=== PATIENT | male | born 1965 | race Caucasian/White ===

== ENCOUNTER 2023-01-20 10:59 | Day surgery (SDC) | payer OTHER, SELFPAY ==
--- NOTE | 2023-01-20 12:05 | P.ON_ITS ---
Date of procedure: 01/20/23 Procedure: Lumbar 4/5 Epidural injection Preop diagnosis includes pain secondary to Lumbar Radiculopathy Post op diagnosis same Under fluoroscopic guidance Immediate complications none Solution used for injection: Marcaine 0.25% 2mL, 2cc Normal saline, Depo-Medrol 80mg Omnipaque 3 mL Anesthesia local 2% lidocaine up to 4ml Timeout process compliant After informed consent obtained. patient brought to the procedure room placed in the prone position. skin overlying the area was prepped and draped in a sterile fashion using betadine. 25 gauge needle used To raise a skin wheel with local anesthetic over the target area identified under fluoroscopy . a 17 gauge Touhy needle Was inserted over the anesthetized area and directed towards the inter- space under fluoroscopic guidance . epidural space was identified with loss of resistance technique to air. needle Tip placement confirmed with injection of contrast solution. Steroid solution was then injected. Dellrose removed post operatively. Patient transferred to recovery room in stable condition, to be discharged home after meeting Criteria Surgeon: Jimmy Montes
[2023-01-20 12:10] VITALS: BP 122/72; PULSE 74; RESP 14; TEMP 36.9; O2SAT 98
[2023-01-20 12:20] LABS: Glucometer 138 mg/dL (74-106)
[2023-01-20 12:51] VITALS: RESP 20
[2023-01-20 12:56] VITALS: BP 141/102; PULSE 76; O2SAT 92
[2023-01-20] MEDS: 0.9 % SODIUM CHLORIDE 10 ML SYRINGE - SALINE FLUSH 2 ML INJ (12:58)
[2023-01-20] MEDS: IOHEXOL 240 MG/ML - 10 ML VIAL INJ (12:59)
[2023-01-20] MEDS: BUPIVACAINE HCL 0.25% PF 25 MG/10 ML VIAL 2 ML INJ (12:59)
[2023-01-20] MEDS: METHYLPREDNISOLONE ACETATE 80 MG/ML VIAL INJ (13:00)
[2023-01-20] MEDS: LIDOCAINE HCL 2% PF 100 MG/5 ML VIAL 4 ML INJ (13:00)
[2023-01-20 13:02] VITALS: BP 146/69; PULSE 69; O2SAT 95
== END 2023-01-20 13:03 | disposition home or self-care (01) ==
LOC: SURGOUT 10:59
PROVIDERS: PCP Nurse Practitioner; Visit Provider Anesthesiology Pain Medicine
DX: M54.16 Radiculopathy, lumbar region (principal)
CPT/HCPCS: 36415; 62323; 82948; J1040; Q9966

== ENCOUNTER 2023-02-19 10:27 | Outpatient (OUT) | payer OTHER, SELFPAY ==
--- NOTE | 2023-02-19 10:54 | PM.CN ---
Consult Note: HPI Data of Consult Patient: known to practice within the last 3 years Consult date: 02/19/23 Requesting Physician: TAWNY ANDERSEN NP Primary Care Provider: Lenore Abad Consult Narrative Narrative: Patient was here for f/u of L4/5 TOMASA . He had no relief of pain after procedure. Pain is 10/10 today . Pain is bilat back radiating to both legs with weakness right leg. He has also had an RFA in the past with no relief. We discussed neurospine referral since procedures are not helping and he is in agreement. Denies adverse SE of medications. Medication regimen assists patient with being better able to perform ADLS. No new sensorimotor or bowel or bladder issues. He walks with walker. cc:: CC: TAWNY ANDERSEN NP Review of Systems ROS Status of ROS 10 or more systems reviewed and unremarkable except as noted in history and below Musculoskeletal Reports: back pain PFSH PFSH Medical History Surgical History Meds Home Medications and Allergies Home Medications Medication Instructions Recorded Confirmed Type albuterol sulfate 90 mcg/actuation inhalation 01/12/23 History aerosol inhaler (ProAir HFA) aspirin 81 mg capsule 81 mg PO DAILY 01/12/23 01/20/23 History atorvastatin 40 mg tablet mg 01/12/23 History baclofen 10 mg tablet mg 01/12/23 History budesonide-formoterol HFA 160 inhalation 01/12/23 History mcg-4.5 mcg/actuation aerosol inhaler (Symbicort) bupropion HCl 300 mg 24 hr tablet, mg PO 01/12/23 History extended release citalopram 40 mg tablet (Celexa) 40 mg PO DAILY 01/12/23 01/20/23 History clopidogrel 75 mg tablet mg 01/12/23 History insulin glargine 100 unit/mL (3 unit subcut 01/12/23 History mL) subcutaneous pen (Lantus Solostar U-100 Insulin) lisinopril 20 mg tablet mg 01/12/23 History metformin 750 mg tablet,extended mg PO 01/12/23 History release 24 hr metoprolol tartrate 50 mg tablet mg 01/12/23 History pregabalin 100 mg capsule mg 01/12/23 History trazodone 150 mg tablet mg 01/12/23 History Allergies Allergy/AdvReac Type Severity Reaction Status Date / Time Penicillins Allergy Mild Verified 01/12/23 16:18 Exam Constitutional Documenting provider has reviewed patient's vital signs: yes Common normals: no apparent distress, oriented x3, healthy appearing, alert and well nourished General appearance: cooperative, comfortable and well developed Nutritional appearance: obese Orientation/consciousness: Yes awake, Yes oriented to person, Yes oriented to place and Yes oriented to time HENMT Common normals: normocephalic and moist oral mucous membranes Respiratory Common normals: normal respiratory effort, no retractions and no use of accessory muscles Effort & inspection: able to speak in complete sentences and symmetric chest movement Back & Pelvis Lumbar spine/lower back: normal to inspection, ROM limited, pain with ROM, paraspinal muscle tenderness, paraspinal muscle spasm, straight leg raise positive right and straight leg raise positive left Other: positive facet load bilat lumbar Assessment and Plan Assessment and Plan (1) Lumbar radiculopathy: (2) Muscle spasm: Plan neurospine referral
== END 2023-02-19 10:28 | disposition home or self-care (01) ==
LOC: PM 10:27
PROVIDERS: PCP Nurse Practitioner; Visit Provider Nurse Practitioner
DX: M54.16 Radiculopathy, lumbar region (principal); M62.838 Other muscle spasm
CPT/HCPCS: G0463

== ENCOUNTER 2023-02-20 07:00 | Outpatient (OUT) | payer OTHER, SELFPAY ==
[2023-02-20 07:24] LABS: Basophils Absolute Auto 0.1 10^3/uL (0.0-0.1); Basophils Percent Auto 0.5 % (0.2-2.0); Eosinophils Absolute Auto 0.2 10^3/uL (0.0-0.7); Eosinophils Percent Auto 1.9 % (0.9-7.0); Hematocrit 44.4 % (42.0-54.0); Hemoglobin 14.8 g/dL (14.0-18.0); Immature Granulocytes Abs Auto 0.03 10^3/uL (0.00-0.03); Immature Granulocytes Pct Auto 0.3 % (0.0-0.5); Lymphocytes Absolute Auto 2.6 10^3/uL (1.2-3.8); Lymphocytes Percent Auto 24.2 % (20.5-60.0); Mean Corpuscular HGB Conc 33.3 g/dL (29.9-35.2); Mean Corpuscular Hemoglobin 29.7 pg (25.9-34.0); Mean Corpuscular Volume 89.2 fL (80.0-94.0); Mean Platelet Volume 8.9 fL (9.5-13.5); Monocytes Absolute Auto 0.8 10^3/uL (0.3-0.8); Neutrophils Absolute Auto 7.2 10^3/uL (1.4-6.5); Neutrophils Percent Auto 66.1 % (43.0-75.0); Platelet Count 274 10^3/uL (150-450); Red Blood Count 4.98 10^6/uL (4.70-6.10); White Blood Count 10.8 10^3/uL (4.0-11.0)
[2023-02-20 07:35] LABS: Estimated Average Glucose 140 mg/dL; Glycohemoglobin A1C 6.5 % (4.5-6.2)
[2023-02-20 07:37] LABS: Alanine Aminotransferase 31 U/L (16-63); Albumin Globulin Ratio 0.9; Albumin Level 3.7 g/dL (3.4-5.0); Alkaline Phosphatase 124 U/L (46-116); Anion Gap 12.2; Aspartate Amino Transferase 11 U/L (15-37); BUN Creatinine Ratio 8.7; Bilirubin Total 0.3 mg/dL (0.2-1.0); Bilirubin Urine NEGATIVE (NEGATIVE); Blood Urine NEGATIVE (NEGATIVE); Calcium 9.1 mg/dL (8.5-10.1); Carbon Dioxide 29.3 mmol/L (21.0-32.0); Chloride 99 mmol/L (98-107); Chol HDL Ratio 3.5; Cholesterol 151 mg/dL (<=200); Clarity Urine CLEAR (CLEAR); Color Urine LT. YELLOW (YELLOW); Estimated GFR (African America >60 (>=60); Estimated GFR (Non-African Ame >60 (>=60); Globulin 4.2 g/dL; Glucose 139 mg/dL (74-106); Glucose Urine UA NEGATIVE (NEGATIVE); HDL Cholesterol 43 mg/dL (40-60); Ketones Urine NEGATIVE (NEGATIVE); Leukocyte Esterase Urine TRACE (NEGATIVE); Nitrite Urine NEGATIVE (NEGATIVE); Potassium 4.5 mmol/L (3.5-5.1); Protein Urine NEGATIVE (NEG/TRACE); Sodium 136 mmol/L (136-145); Total Protein 7.9 g/dL (6.4-8.2); Triglycerides 85 mg/dL (<=150); Urobilinogen Urine 0.2 EU/dL (0.2-1.0)
[2023-02-20 07:53] LABS: Microalbumin Urine Random <1.3 mg/dL (<=30.0)
[2023-02-20 08:06] LABS: Bacteria Urine TRACE #/HPF (NONE SEEN); Mucus Urine NONE SEEN (NONE SEEN); RBC Urine NONE SEEN #/HPF (0-2)
[2023-02-20 08:07] LABS: Squamous Epithelial Cell Urine FEW #/LPF (NONE/RARE)
[2023-02-20 08:30] LABS: Prostate Specific Antigen Scrn 0.78 ng/mL (<=4.00)
== END 2023-02-20 07:01 | disposition home or self-care (01) ==
LOC: LAB 02-25 13:00
PROVIDERS: PCP Nurse Practitioner; Visit Provider Nurse Practitioner
DX: E11.9 Type 2 diabetes mellitus without complications (principal); Z12.5 Encounter for screening for malignant neoplasm of prostate
CPT/HCPCS: 36415; 80053; 80061; 81001; 82043; 83036; 85025; G0103

== ENCOUNTER 2023-09-29 11:36 | Outpatient (OUT) | payer OTHER, SELFPAY ==
[2023-09-29 14:25] LABS: Estimated Average Glucose 148 mg/dL; Glycohemoglobin A1C 6.8 % (4.5-6.2)
== END 2023-09-29 11:37 | disposition home or self-care (01) ==
LOC: LAB 11:36
PROVIDERS: PCP Nurse Practitioner; Visit Provider Nurse Practitioner
DX: E11.42 Type 2 diabetes mellitus with diabetic polyneuropathy (principal); Z79.4 Long term (current) use of insulin
CPT/HCPCS: 36415; 83036

== ENCOUNTER 2024-02-26 21:55 | Emergency (ER) | payer OTHER, SELFPAY ==
--- OUTSIDE RECORDS SUMMARY | 2024-02-26 22:01 | XMS_ITS | CCD ---
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 Name Role Phone Lakshmipathy, Narendrana Attending Provider Unav ailable NON STAFF Primary Care Provider Unavailabl e Lakshmipathy, Narendrana Admitting Unavail able Lakshmipathy, Narendrana Attending Unavail able NON STAFF Primary Care Unavailable AICHHOLZ, CHILD PSYCHOMETRIST LENORE Admitting Unavailable AICHHOLZ, CHILD PSYCHOMETRIST LENORE Attending Unavailable AICHHOLZ, CHILD PSYCHOMETRIST LENORE Primary Care Unavailable ZACK ., DR GERHARD Solorio Admitting Unavailable DIXON ., DR GERHARD Solorio Attending Unavailable AICHHOLZ, CHILD PSYCHOMETRIST LENORE Primary Care Unavailable DIXON ., DR GERHARD Solorio Consulting Unavailable LAKSHMIPATHY ., NARENDRANATH Admitting Pati vailable LAKSHMIPATHY ., NARENDLEXATH Attending Pati vailable AICHHOLZ, CHILD PSYCHOMETRIST LENORE Primary Care Unavailable LAKSHMIPATHY ., NARENDRANATH Consulting Pati vailable LAKSHMIPATHY ., NARENDRANATH Admitting Pati vailable LAKSHMIPATHY ., NARENDRANATH Attending Pati vailable AICHHOLZ, CHILD PSYCHOMETRIST LENORE Primary Care Unavailable HALKER .TAWNY Consulting Unavailable AICHHOLZ, CHILD PSYCHOMETRIST LENORE Admitting Unavailable AICHHOLZ, CHILD PSYCHOMETRIST LENORE Attending Unavailable AICHHOLZ, CHILD PSYCHOMETRIST LENORE Primary Care Unavailable AICHHOLZ, CHILD PSYCHOMETRIST LENORE Consulting Unavailable DANY RODRÍGUEZ Consulting Unavailable AICHHOLZ, CHILD PSYCHOMETRIST LENORE Admitting Unavailable AICHHOLZ, CHILD PSYCHOMETRIST LENORE Attending Unavailable AICHHOLZ, CHILD PSYCHOMETRIST LENORE Primary Care Unavailable AICHHOLZ, CHILD PSYCHOMETRIST LENORE Consulting Unavailable AICHHOLZ, CHILD PSYCHOMETRIST LENORE Admitting Unavailable AICHHOLZ, CHILD PSYCHOMETRIST LENORE Attending Unavailable AICHHOLZ, CHILD PSYCHOMETRIST LENORE Primary Care Unavailable GRISELDA ABAD Consulting Unavailable LUÍS CORTES Consulting Unavailable Lenore Lopez Primary Care Provider LENORE ABAD Attending Unavailable LENORE ABAD Attending Unavailable Allergies Allergy Classification Reported Allergen(s) Allergy Type Date of Onset Reaction(s) Facility (3 sources) Penicillins; Translations: [Penicillins] Allergy to substance 09-24-2016 [facility] (1 source) Penicillin Drug Allergy 05-20-2022 [facility] Repository Medications Current Medications Medication Drug Class(es) Dates Sig (Normalized) Sig (Original) aspirin 81 mg delayed release oral tablet (1 source) Platelet Aggregation Inhibitor, Nonsteroidal Anti-inflammatory Drug Start: 11-17-2017 take 1 tablet by mouth once daily aspirin 81 mg Indications: Atherosclerosis of [place] coronary artery of [place] heart without angina pectoris Take 1 tablet (81 mg total) by mouth once daily. 90 tablet 3 11/17/2017 Active atorvastatin 40 mg oral tablet (1 source) HMG-CoA Reductase Inhibitor Start: 11-17-2017 take 1 tablet by mouth once daily atorvastatin (LIPITOR) 40 mg tablet Indications: Atherosclerosis of [place] coronary artery of [place] heart without angina pectoris Take 1 tablet (40 mg total) by mouth once daily. 90 tablet 3 11/17/2017 Active baclofen 10 mg oral tablet (1 source) gamma-Aminobutyric Acid-ergic Agonist take 1 tablet by mouth every eight hours baclofen (LIORESAL) 10 mg tablet Baclofen 10 MG Oral Tablet TAKE 1 TABLET Every 8 hours Quantity: 90 Refills: 0 [place] M.D.; Active 0 Active 24 hr buPROPion hydrochloride 300 mg extended release oral tablet (1 source) Aminoketone take 1 tablet by mouth once daily buPROPion XL (WELLBUTRIN XL) 300 mg 24 hr tablet Take 300 mg by mouth daily. 0 Active clopidogrel 75 mg oral tablet (1 source) P2Y12 Platelet Inhibitor Start: 11-17-2017 take 1 tablet by mouth once daily clopidogrel (PLAVIX) 75 mg tablet Indications: Atherosclerosis of [place] coronary artery of [place] heart without angina pectoris take 1 tablet by mouth once daily 30 tablet 5 11/17/2017 Active gabapentin 600 mg oral tablet (1 source) Anti-epileptic Agent Start: 06-03-2018 take 1 tablet by mouth every six hours gabapentin (NEURONTIN) 600 mg tablet Indications: Chronic low back pain, unspecified back pain laterality, with sciatica presence unspecified take 1 tablet by mouth every 6 hours 100 tablet 2 06/03/2018 Active lisinopril 20 mg oral tablet (1 source) Angiotensin Converting Enzyme Inhibitor Start: 11-17-2017 take 1 tablet by mouth once daily lisinopril (PRINIVIL,ZESTRIL) 20 mg tablet Indications: Atherosclerosis of [place] coronary artery of [place] heart without angina pectoris Take 1 tablet (20 mg total) by mouth once daily. 90 tablet 3 11/17/2017 Active metFORMIN hydrochloride 500 mg oral tablet (1 source) Biguanide Start: 05-07-2019 take 1 tablet by mouth twice daily metFORMIN (GLUCOPHAGE) 500 mg tablet Take 500 mg by mouth 2 (two) times a day. 0 05/07/2019 Active metoprolol tartrate 50 mg oral tablet (1 source) beta-Adrenergic Ike Start: 11-17-2017 take 1 tablet by mouth once metoprolol tartrate (LOPRESSOR) 50 mg tablet Indications: Atherosclerosis of [place] coronary artery of [place] heart without angina pectoris Take 1 tablet (50 mg total) by mouth every 12 (twelve) hours. 180 tablet 3 11/17/2017 Active morphine sulfate 15 mg extended release oral tablet (1 source) Opioid Agonist Start: 06-28-2018 take 1 tablet by mouth once morphine (MS CONTIN) 15 mg 12 hr tablet Indications: Chronic low back pain, unspecified back pain laterality, with sciatica presence unspecified Take 1 tablet (15 mg total) by mouth every 12 (twelve) hours. Max Daily Amount: 30 mg 60 tablet 0 06/28/2018 Active OXcarbazepine 150 mg oral tablet (1 source) Anti-epileptic Agent take 1 tablet by mouth four times daily OXcarbazepine (TRILEPTAL) 150 mg tablet OXcarbazepine 150 MG Oral Tablet TAKE 1 TABLET 4 TIMES DAILY Refills: 0 Active 0 Active oxyCODONE hydrochloride 10 mg oral tablet (1 source) Opioid Agonist Start: 06-28-2018 take 1 tablet by mouth every eight hours oxyCODONE (ROXICODONE) 10 MG tablet immediate release tablet Indications: Chronic low back pain, unspecified back pain laterality, with sciatica presence unspecified Take 1 tablet (10 mg total) by mouth every 8 (eight) hours. Max Daily Amount: 30 mg 90 tablet 0 06/28/2018 Active predniSONE 20 mg oral tablet (1 source) Start: 01-26-2018 predniSONE (DELTASONE) 20 mg tablet Take two tablets by mouth for first 5 days, take one tablet by mouth for following 5 days. 15 tablet 0 01/26/2018 Active rOPINIRole 0.25 mg oral tablet (1 source) Nonergot Dopamine Agonist take 1 tablet by mouth three times daily rOPINIRole (REQUIP) 0.25 mg tablet ROPINIRole HCl - 0.25 MG Oral Tablet TAKE 1 TABLET 3 TIMES DAILY. Refills: 0 Active 0 Active sildenafil 50 mg oral tablet (1 source) Phosphodiesterase 5 Inhibitor Start: 12-12-2019 take 1 tablet by mouth once daily as needed sildenafiL (VIAGRA) 50 mg tablet Take 1 tablet (50 mg total) by mouth daily as needed for erectile dysfunction. 10 tablet 3 12/12/2019 Active varenicline (1 source) Partial Cholinergic Nicotinic Agonist Start: 06-09-2019 varenicline (CHANTIX SUNIL) 0.5 mg (11)- 1 mg (42) tablet Take 0.5 mg one daily on days 1-3 and 0.5 mg twice daily on days 4-7. Then 1 mg twice daily for a total of 12 weeks. 53 tablet 3 06/09/2019 Active Problems Active Problems Problem Classification Problem Date Documented Da te Episodic/Chronic Acute myocardial infarction (1 source) Myocardial infarction; Translations: [Acute myocardial infarction, unspecified] 06-07-2019 Chronic Congestive heart failure; nonhypertensive (1 source) Congestive heart failure; Translations: [Heart failure, unspecified] 06-07-2019 Chronic Coronary atherosclerosis and other heart disease (1 source) Coronary arteriosclerosis; Translations: [Atherosclerotic heart disease of [place] coronary artery without angina pectoris] 06-07-2019 Chronic Diabetes mellitus without complication (5 sources) Type 2 diabetes mellitus without complications; Translations: [Diabetes mellitus] Onset: 01-31-2022 Chronic Disorders of lipid metabolism (1 source) Hyperlipidemia; Translations: [Hyperlipidemia, unspecified] 06-07-2019 Chronic Essential hypertension (1 source) Hypertensive disorder; Translations: [Essential (primary) hypertension] 06-07-2019 Chronic Mood disorders (1 source) Depressive disorder; Translations: [Depression] 06-07-2019 Chronic Osteoarthritis (1 source) Arthritis; Translations: [Unspecified osteoarthritis, unspecified site] 06-07-2019 Chronic Other male genital disorders (1 source) Male erectile dysfunction, unspecified; Translations: [Impotence of organic origin] 06-07-2019 Chronic Other nervous system disorders (1 source) Other chronic pain; Translations: [OTHER CHRONIC PAIN] Onset: 10-05-2022 Chronic Other nutritional; endocrine; and metabolic disorders (1 source) Obesity, unspecified; Translations: [OBESITY UNSPECIFIED] Onset: 05-23-2022 Chronic Other nutritional; endocrine; and metabolic disorders (1 source) Obesity; Translations: [Obesity, unspecified] 06-07-2019 Chronic Parkinson`s disease (1 source) Parkinson's disease; Translations: [Parkinson's disease] 06-07-2019 Chronic Spondylosis; intervertebral disc disorders; other back problems (12 sources) Spondylosis without myelopathy or radiculopathy, lumbar region; Translations: [Other intervertebral disc degeneration, lumbar region] Onset: 08-14-2016 Chronic Spondylosis; intervertebral disc disorders; other back problems (9 sources) Radiculopathy, lumbar region; Translations: [Intervertebral disc disorders with radiculopathy, lumbar region] Onset: 08-14-2016 Episodic Unclassified (2 sources) LOW BACK PAIN, UNSPECIFIED; Translations: [LOW BACK PAIN, UNSPECIFIED] Onset: 10-05-2022 Past or Other Problems Problem Classification Problem Date Documented Da te Episodic/Chronic Other connective tissue disease (1 source) Pain in right leg; Translations: [PAIN IN RIGHT LEG] Onset: 05-23-2022 Episodic Other liver diseases (4 sources) Abnormal levels of other serum enzymes; Translations: [ABNORMAL LEVELS OTHER SERUM ENZYMES] Onset: 02-26-2022 Episodic Unclassified (1 source) LOW BACK PAIN, UNSPECIFIED; Translations: [LOW BACK PAIN, UNSPECIFIED] Onset: 09-30-2022 Results Test Name Value Interpretation Reference Range Facility XR pre/post mri xrayon 11-05 XR pre/post mri xray [facility] [place] [address] MRI Report Signed Patient: Jose Delacruz MR#: [id number] 44 : 1965 Acct:[id number] Age/Sex: 57 / M ADM Date: 11/05/22 Loc: MR Room: Type: [facility] Attending Dr: Maria Teresa Montes Copies to: Jimmy Montes Ordering Provider: Jimmy Montes Date of Service: 11/05/22 MR/MR lumbar spine wo con: LUMBAR RADICULOPATHY ([id number]) XR/XR pre/post mri xray: LUMBAR RADIC MRI lumbar spine withoutcontrast TECHNIQUE: Multiplanar T1 and T2-weighted imaging of lumbar spine obtained without contrast. HISTORY:Low back pain with radiation down the legs. COMPARISON:None The last fully segmented vertebral pair is operationally defined as L5/S1. POST SURGERY CHANGES: None BONE MARROW INFILTRATION:None BONE MARROW EDEMA:None BONY ALIGNMENT: Adequate bony alignment identified. SPINAL CANAL:No significant central canal narrowing. LUMBAR FRACTURE: None BONY LESIONS: None KIDNEYS: No hydronephrosis is identified. AORTA: No aortic aneurysm is seen. CONUS MEDULLARIS : The distal spinal cord is in adequate position without abnormality. Additional findings CONJOINED NERVE ROOT:None Lower thoracic level: Unremarkable L1-2:Mild spondylosis. Moderate diffuse disc bulge. Facet ligamentum flavum hypertrophy. Patent central canal and neural foramen. L2-3: Mild spondylosis. Midline disc protrusion. Concavity intrathecal sac. Facet ligamentum flavum hypertrophy. Mild central canal stenosis. Mild bilateral neural foraminal narrowing. L3-4:Mild spondylosis. Moderate diffuse disc bulge. Facet ligamentum flavum hypertrophy. Patent central canal. Mild bilateral neural foraminal narrowing. L4-5:The RIGHT parasagittal disc extrusion. Concavity intrathecal sac. Facet ligamentum flavum hypertrophy. Moderate RIGHT and mild LEFT neural foraminal narrowing. L5-S1:Mild spondylosis. Diffuse disc bulge and LEFT parasagittal disc protrusion. Patent central canal. Mild bilateral neural foraminal narrowing. Facet ligamentum flavum hypertrophy. MR/MR lumbar spine wo con IMPRESSION:Multileve l discovertebral degenerative changes. L4-5 RIGHT paracentral disc extrusion. L5-S1 LEFT paracentral disc protrusion. Mild central canal stenosis. Neuroforaminal narrowing as above. Pre-MRI plain film assessment: Plain film imaging the skeletal lumbar spine was performed. There is a BB identified in the vertex of the scalp. The bony structures intact. There is some degenerative changes of the lumbar spine throughout. No acute bony findings. Alignment unremarkable. IMPRESSION: BB in the vertex of the scalp. Multiple level lumbar degeneration. Impression dictated by: Gareth Armenta M.D.11/05/2022 3:43 PM Dictation Location: [place] [address] Transcribed By: [facility] 11/05/22 1543 Dictated By: Gareth Armenta DO 11/05/22 1537 Signed By: 11/05/22 1543 Normal [facility] US SINGLE QUAD RT UPPERon US SINGLE QUAD RT UPPER ULTRASOUND RIGHT UPPER QUADRANT HISTORY: Elevated liver enzymes. COMPARISON: None. FINDINGS: The liver is diffusely echogenic which limits the sensitivity for intrahepatic masses. There is no intrahepatic biliary ductal dilatation. The gallbladder appears unremarkable with no evidence for gallbladder wall thickening or pericholecystic fluid. The common bile duct measures 2 mm. Negative Corado's sign. The visualized portions of the pancreas appear unremarkable. The right kidney is normal appearing with no evidence of hydronephrosis or masses. IMPRESSION: Echogenic liver consistent with hepatocellular disease such as fatty infiltration. Electronically authenticated by: LUÍS CORTES Date: 2022-02-26 17:17 Normal [facility] XR LSPINE 2_3 VIEWSon 2021 XR LSPINE 2_3 VIEWS EXAMINATION: XR LSPINE 2_3 VIEWS HISTORY: Degeneration of lumbar intervertebral disc ; chronic low back pain, right leg pain COMPARISON: XR lumbar spine 10/03/2015 FINDINGS: BONES: Moderate degenerative facet arthropathy L3-L4 through L5-S1. No fracture, spondylolisthesis, bone lesion. Multilevel mild degenerative endplate changes. DISC SPACES: Multilevel mild disc height reduction. PARASPINOUS: Negative. No paraspinous abnormality is seen. OTHER: Negative. IMPRESSION: 1. No appreciable acute abnormality. 2. Multilevel mild-moderate degenerative disc disease and facet arthropathy. Electronically authenticated by: DANY RODRÍGUEZ Date: 2022-02-05 09:40 Normal [facility] GLYCOHEMOGLOBIN A1Con 2021 ADA RECOMMENDATION SEE BELOW Normal [facility] Comment on above: Result Comment: ADA RECOMMENDED LIMIT 4.0 - 6.0 ADA THERAPEUTIC TARGET < 7.0 ACTION SUGGESTED > 7.0 Performed By: #### A 1C #### [facility] [address] [place] [address] Dr. Josue Fierro Glucose [Mass/Vol] 148 mg/dL Normal [facility] Comment on above: Performed By: #### A 1C #### [facility] [address] [place] [address] Dr. Josue Fierro HbA1c (Bld) [Mass fraction] 6.8 % Critically high 4.5-6.2 [facility] Comment on above: Performed By: #### A 1C #### [facility] [address] [place] [address] Dr. Josue Fierro PROF 14(COMP METB)on 022 Albumin [Mass/Vol] 3.4 g/dL Normal 3.4-5.0 [facility] Comment on above: Performed By: #### C MP #### [facility] [address] [place] [address] Dr. Josue Fierro Albumin/Globulin [Mass ratio] 0.9 {ratio} Normal [facility] Comment on above: Performed By: #### C MP #### [facility] [address] [place] [address] Dr. Josue Fierro ALP [Catalytic activity/Vol] 133 U/L Critically high 46-116 [facility] Comment on above: Performed By: #### C MP #### [facility] [address] [place] [address] Dr. Josue Fierro ALT [Catalytic activity/Vol] 28 U/L Normal 16-63 [facility] Comment on above: Performed By: #### C MP #### [facility] [address] [place] [address] Dr. Josue Fierro Anion gap [Moles/Vol] 12.3 mmol/L Normal [facility] Comment on above: Performed By: #### C MP #### [facility] [address] [place] [address] Dr. Josue Fierro AST [Catalytic activity/Vol] 15 U/L Normal 15-37 [facility] Comment on above: Performed By: #### C MP #### [facility] [address] [place] [address] [address] oJsue Fierro Bilirubin [Mass/Vol] 0.2 mg/dL Normal 0.2-1.0 [facility] Comment on above: Performed By: #### C MP #### [facility] [address] [address] [address] Josue Fierro Calcium [Mass/Vol] 9.1 mg/dL Normal 8.5-10.1 [facility] Comment on above: Performed By: #### C MP #### [facility] [address] [place] [address] Dr. Josue Fierro Chloride [Moles/Vol] 100 mmol/L Normal 98-107 [facility] Comment on above: Performed By: #### C MP #### [facility] [address] [place] [address] Dr. Josue Fierro CO2 [Moles/Vol] 28.2 mmol/L Normal 21.0-32.0 [facility] Comment on above: Performed By: #### C MP #### [facility] [address] [place] [address] Dr. Josue Fierro Creatinine [Mass/Vol] 1.10 mg/dL Normal 0.70-1.30 [facility] Comment on above: Performed By: #### C MP #### [facility] [address] [place] [address] Dr. Josue Fierro EGFR-AF EMIRATI >60 Normal >=60 [facility] Comment on above: Performed By: #### C MP #### [facility] [address] [place] [address] Dr. Josue Fierro EGFR-NON AF EMIRATI >60 Normal >=60 [facility] Comment on above: Performed By: #### C MP #### [facility] [address] [place] [address] Dr. Josue Fierro Globulin (S) [Mass/Vol] 3.8 g/dL Normal [facility] Comment on above: Performed By: #### C MP #### [facility] [address] [place] [address] Dr. Josue Fierro Glucose [Mass/Vol] 153 mg/dL Critically high 74-106 [facility] Comment on above: Performed By: #### C MP #### [facility] [address] [address] [address] Josue Fierro Potassium [Moles/Vol] 5.5 mmol/L Critically high 3.5-5.1 [facility] Comment on above: Performed By: #### C MP #### [facility] [address] [address] [address] Josue Fierro Protein [Mass/Vol] 7.2 g/dL Normal 6.4-8.2 [facility] Comment on above: Performed By: #### C MP #### [facility] [address] [place] [address] [address] Josue Fierro Sodium [Moles/Vol] 135 mmol/L Critically low 136-145 [place] Comment on above: Performed By: #### C MP #### [facility] [address] [address] [address] Josue Fierro Urea nitrogen [Mass/Vol] 11.0 mg/dL Normal 7.0-18.0 [facility] Comment on above: Performed By: #### C MP #### [facility] [address] [address] [address] Josue Fierro Urea nitrogen/Creatinine [Mass ratio] 10.0 mg/mg Normal [facility] Comment on above: Performed By: #### C MP #### [facility] [address] [address] [address] Josue Fierro Vital Signs Date Time Vital Sign Value Performing Clinician Baldo jacinto 11-05-2022 11:12-0400 Diastolic blood pressure 75 mm[Hg] [facility] 11-05-2022 11:12-0400 Heart rate 72 /min [facility] 11-05-2022 11:12-0400 Respiratory rate 16 /min [facility] 11-05-2022 11:12-0400 SaO2% (BldA) [Mass fraction] 97 % [facility] 11-05-2022 11:12040 Systolic blood pressure 142 mm[Hg] [facility] 11-05-2022 11:08-0400 Body height 180.34 cm [facility] 11-05-2022 11:08040 Body weight 138.34 kg [facility] Encounters Encounter Date Encounter Type Care Provider Facility Start: 12-10-2023 End: 12-10-2023 ambulatory LENORE AICHHOLZ Not Available Start: 11-04-2023 Telephone encounter [facility] Work Phone: [facility] Start: 07-23-2023 End: 07-23-2023 ambulatory LENORE AICHHOLZ Not Available Start: 12-11-2022 End: 12-12-2022 ambulatory NARENDRANATH FERNANDAMIPATHY . Facility:[facility] Start: 11-05-2022 End: 11-05-2022 ambulatory Scottya Fernandamipathy Facility:[facility] Start: 11-05-2022 End: 11-05-2022 ambulatory NON STAFF [facility] Work Phone: Start: 11-05-2022 End: 11-05-2022 Patient encounter procedure Maria Teresa Montes [facility] [address] [place] Work Phone: Start: 09-30-2022 End: 10-01-2022 ambulatory NARENDRANATH FERNANDAMIPATHY . Facility:[facility] Start: 05-20-2022 End: 05-21-[address] GERHARD DIXON . Facility:[facility] Start: 02-26-2022 End: 02-28-2022 ambulatory CHILD PSYCHOMETRIST LENORE STEPHANIEHVANZ Facility:[facility] Start: 02-26-2022 End: 02-27-2022 ambulatory CHILD PSYCHOMETRIST LENORE AICHHOLZ Facility:[facility] Start: 02-04-2022 End: 02-05-2022 ambulatory CHILD PSYCHOMETRIST LENORE AICHHOLZ Facility:[facility] Start: 01-31-2022 End: 02-01-2022 ambulatory CHILD PSYCHOMETRIST LENORE ABAD Facility:[facility] Procedures Date Procedure Procedure Detail Performing Clinician Start: 11-05-2022 XR pre/post mri xray Na franvickie Fernandamivic Start: 11-05-2022 MR lumbar spine wo con Scottyjone Fernandamipathy Plan of Treatment Date Care Activity Detail Author Start: 04-03-2024 Influenza vaccination Influenza Vaccine [facility] Start: 2015 Administration of varicella zoster vaccine Zoster (Shingles) Vaccine (1 of 2) [facility] Start: 1984 DTaP,Tdap and Td Vaccines (1 - Tdap) DTaP,Tdap and Td Vaccines (1 - Tdap) [facility] Start: 1983 Adult BMI Screening Adult BMI Screening [facility] Start: 1977 Depression Screening Depression Screening [facility] Start: 1977 Tobacco Screening Tobacco Screening [facility] Payers Date Payer Category Payer Self-pay 2022 Medicaid [employer] H[employer] 2022-Present [phone] [address] [place] [address] [id number] 1965 Unknown [id number] 1965 Unknown [id number] 1965 Unknown [id number] 1965 Unknown [id number] 1965 Unknown [id number] 1965 Unknown [id number] 1965 Unknown [id number] 1965 Unknown [id number] 1965 Unknown [id number] 1959 Medicaid [id number] 1959 Unknown [id number] 1959 Unknown [id number] Unknown [id number] Social History Date Type Detail Facility Tobacco smoking stat [facility] Unknown if ever smoked [facility] Work Phone: Start: 1965 Sex Assigned At Male F [facility] Start: 06-09-2019 [facility] History of tobacco use Cigarette Smoker P [facility] Start: 06-09-2019 End: 08-16-2020 Cigarettes smoked current (pack per day) - Reported 1 [facility] Start: 06-09-2019 Tobacco use and exposure Smokeless tobacco non-user [facility] Start: 06-09-2019 Alcohol intake Ex-drinker (finding) [facility] Start: 05-18-2019 End: 08-16-2020 Tobacco use panel [facility] Childcare Unknown [facility] Start: 1965 Sex Assigned At Not on file P [facility] Note 11-04-2023 Telephone Encounter - Estela Jacobsen - 11/04/2023 3:52 PM EDT Note Date & Type Note Facility 11-04-2023 Miscellaneous Notes Formattin g of this note might be different from the original. Received faxed referral for patient to be seen for Lumbar. Unable to reach patient or leave message, # not in service. documented in this encounter [facility] Telephone encounter Note 11-04-2023 Telephone Encounter - Estela Jacobsen - 11/04/2023 3:52 PM EDT Note Date & Type Note Facility 11-04-2023 Telephone encount er Note Received faxed referral for patient to be seen for Lumbar. Unable to reach patient or leave message, # not in service. [facility] Consultation note 09-30-2022 Note Date & Type Note Facility 09-30-2022 Note CONSULTATION CONSULTATION DATE: 09/30/2022 TO: Lenore Abad CNP CHIEF COMPLAINT: Includes severe lower back pain, right leg pain with mild weakness and numbness. HISTORY OF PRESENT ILLNESS: His last encounter prior to today was on 05/20/2022. At that time, an MRI was requested. Unfortunately, it was not completed. It was approved; however, the patient is severely claustrophobic and requires anesthesia for the imaging study. Nevertheless, the patient reports the pain as being 5-7/10 pain in the mid/lower back and right lower extremity, increased with activities such as standing, walking and performing transitioning maneuvers. He feels most comfortable in the semi-recumbent position. Denies any change in bowel or bladder habits or new sensorimotor change in the lower extremity. He reports the change he experiences is quite old, having been there for at least the last one year, and has not been responsive to physical therapy, independent home exercise program and the use of muscle relaxants as well as membrane stabilizers in the form of Lyrica. He is unable to tolerate nonsteroidal agents secondary to anticoagulation use. EXAM: Notable for patient having hypoesthesia along the right L5 and S1 dermatome, weakness of his right EHL and anterior tibialis. Straight leg raise was equivocally positive at 45 degrees. He had no clinical myelopathy involving his lower extremities. He had a depressed right Achilles reflex. IMPRESSION: Our impression is that patient has chronic pain secondary to right L5 and S1 radiculopathy, unresponsive to conservative therapy which includes physical therapy, medication management, activity modification. RECOMMENDATIONS I recommend proceeding with a lumbosacral MRI without contrast. He will require anesthesia secondary to significant claustrophobia. I will see him back in the office after he undergoes his imaging study. Discussed the possibility of proceeding with a lumbar epidural steroid injection, pending his MRI results. I have also discussed the possibility of surgical decompression with or without stabilization. He reports he wishes to avoid surgery, if at all possible. [facility] Consultation note 05-20-2022 Note Date & Type Note Facility 05-20-2022 Note CONSULTATION CONSULTATION DATE: Low back pain, right leg pain. HISTORY OF PRESENT ILLNESS: This is a 57-year-old gentleman who has had chronic pain since 2005. The patient uses a walker for ambulation. The patient is accompanied by his . The patient was referred to us by Lenore Abad. The patient reports having low back pain bilaterally and on the right side radiating into his foot. He describes the pain as a 7/10, a burning sensation. Activities such as twisting, pushing, standing, walking, lifting, bending, climbing stairs aggravate the patient's pain as does cold, damp weather. Sitting mitigates the patient's pain. The patient takes Tylenol Extra Strength two tablets on a p.r.n. basis, trazodone 150 mg h.s., Lyrica 100 mg t.i.d., Celexa 40 mg, Wellbutrin 300 mg, Skelaxin 800 mg t.i.d. The patient is on Plavix as prescribed by Lenore Abad. The patient's PAST MEDICAL HISTORY / SURGICAL HISTORY / REVIEW OF SYSTEMS are noted on the chart, along with the MEDICATION LIST / ALLERGIES and the X-RAY of his lumbar spine which shows degenerative changes at the discs at the level of T12-L1 and also L5-S1 with lumbar spondylosis. Sclerosis of the facets is also noted. PHYSICAL EXAM: Upon physical examination, this is a disheveled, 57-year-old gentleman, who looks older than stated age. VITAL SIGNS: 113/55 with a heart rate of 57. At a height of 5'11 , the patient weighs 140 kg. HEAD: The patient has poor dentition. NECK: Cervical range of motion is not guarded. HEART: Negative orthopnea from cardiac standpoint. LUNGS: The patient's coloration is appropriate. The patient is a smoker. ABDOMEN: Protuberant, distended. BACK: Loss of lumbar lordosis is noted. Pelvis is rotated anteriorly. Extension, compression, direct palpation on the right hand side aggravates a component of the patient's pain symptomatology. The patient is slow to stand up. The patient is very guarded and focused with regards to his movements. EXTREMITIES: Slight pedal edema is present bilaterally. MUSCULOSKELETAL: Intact in the lower extremities; however, volitionality versus pathology becomes difficult to ascertain on the patient with give way symptomatology. NEUROLOGICALLY: Noncontributory from a dermatomal standpoint. The patient has hypoesthesia along the L5 distribution on the right hand side. PSYCHIATRICALLY: Affect is appropriate. IMPRESSION: Right leg pain, lumbar radiculitis, neuritis, tenderness along the posterior elements on the right hand side, lumbar degenerative disc disease, obesity, significant deconditioning. PLAN: We will order an MRI of the lumbar spine. This will help ascertain the degree of pathology and also target in where we may need to approach. In the interim, the patient is to apply heat rub to his low back and perform stretching exercises. No medications were prescribed. CC: Lenore Abad CNP [facility] Consultation note 05-20-2022 Note Date & Type Note Facility 05-20-2022 Note CONSULTATION CONSULTATION DATE: 05/20/2022 ADDENDUM NOTE: Patient has done a total of 6-8 weeks of home exercises in a sitting position with leg extensions and pushing/pulling exercises. He does use a walker. He has been on long-term treatment with Lyrica 100 mg t.i.d. with current maintenance of his radicular pain. MUSCULOSKELETAL: His motor is 4/5 bilaterally with slight motor weakness noted to the right anterior tibialis. Extensors are intact. NEUROLOGICALLY: Patient is cognitively intact. He has +1 bilateral patellar and Achilles reflexes. [facility] Evaluation note Note Date & Type Note Facility Evaluation note No assessment information availa [facility] Work Phone: Instructions Note Date & Type Note Facility Instructions Not on filedocumented in this en counter [facility] Chief Complaint and Reason for Visit Chief Complaint lumbar radiculpathy Advance Directives No Advanced Directives Records Found Advance Directive Response Recorded Date/ Time Advance Directives No October 24, 2 023 12:15pm Summary Purpose Family History No Family History Records FoundNo Family History Records FoundNo Family History Records Found Additional Source Comments Care Teams (unrecognized sec tion and content) Team Status: Active Member Role Status Dates NON STAFF Primary Care Provider Active Team Status: Inactive Member Role Status Dates Maria Teresa Montes Attending Provider Active NON STAFF Primary Care Provider Active [employer]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 Relationship Specialty Start Date End Date Lenore Abad, DRY MOLDER-CHILD PSYCHOMETRIST [address] [place] [address] PCP - General Nurse Practitioner 06/09/19 Goals (unrecognized section and content) Goals may be documented in a n alternate sectionNot on filedocumented as of this encounter (unrecognized sect ion and content) No Status Records FoundNo Status Records FoundNo Status Records Found INFORMATION SOURCE (unrecogn ized section and content) DATE CREATED AUTHOR 11/18/2022 [facility] DATE CREATED AUTHOR AUTHOR'S ORGANIZ ATION 12/15/[address] [facility] DATE CREATED AUTHOR AUTHOR'S ORGANIZ ATION 12/12/2023 [facility] FOR RECORDS PERTAINING TO PATIENTS WHO ARE OR HAVE BEEN ENROLLED IN A CHEMICAL DEPENDENCY/SUBSTANCEABUSE PROGRAM, SOME INFORMATION MAY BE OMITTED. This clinical summary was aggregated from multiple sources. Caution should be exercised in using it in the provision of clinical care. This summary normalizes information from multiple sources, and as a consequence, information in this document may materially change the coding, format and clinical context of patient data. In addition, data may be omitted in some cases. CLINICAL DECISIONS SHOULD BE BASED ON THE PRIMARY CLINICAL RECORDS. [facility] [employer] provides no warranty or guarantee of the accuracy or completeness of information in this document.
[2024-02-26 22:07] VITALS: BP 136/69; PULSE 71; TEMP 36.7; O2SAT 96; BMI 45.0
[2024-02-26 22:16] LABS: Glucometer 252 mg/dL (74-106)
--- NOTE | 2024-02-26 22:48 | ED_ITS ---
HPI - Recheck/Abnormal Lab/Rx General Chief Complaint: Recheck/Abnormal Lab/Rx Stated Complaint: Hyperglycemia Time Seen by Provider: 02/26/24 22:39 Source: patient Mode of arrival: walk-in Limitations: no limitations History of Present Illness HPI narrative: IDDM. family concerned because his BS is usually 180 or lower and has been over 225. Checked here in the department and is 250s. Patient complains of left flank pain but otherwise feels well. Had a headache earlier that has resolved. No vomiting , diarrhea or urinary symptoms. No fever. Flank pain is mild Related Data Home Medications ?Medication ?Instructions ?Recorded ?Confirmed albuterol sulfate 90 mcg/actuation inhalation 01/12/23 aerosol inhaler (ProAir HFA) aspirin 81 mg capsule 81 mg PO DAILY 01/12/23 01/20/23 atorvastatin 40 mg tablet mg 01/12/23 baclofen 10 mg tablet mg 01/12/23 budesonide-formoterol HFA 160 inhalation 01/12/23 mcg-4.5 mcg/actuation aerosol inhaler (Symbicort) bupropion HCl 300 mg 24 hr tablet, mg PO 01/12/23 extended release citalopram 40 mg tablet (Celexa) 40 mg PO DAILY 01/12/23 01/20/23 clopidogrel 75 mg tablet mg 01/12/23 insulin glargine 100 unit/mL (3 unit subcut 01/12/23 mL) subcutaneous pen (Lantus Solostar U-100 Insulin) lisinopril 20 mg tablet mg 01/12/23 metformin 750 mg tablet,extended mg PO 01/12/23 release 24 hr metoprolol tartrate 50 mg tablet mg 01/12/23 pregabalin 100 mg capsule mg 01/12/23 trazodone 150 mg tablet mg 01/12/23 Allergies Allergy/AdvReac Type Severity Reaction Status Date / Time Penicillins Allergy Mild hives Verified 02/26/24 22:07 Review of Systems ROS Status of ROS 10 or more systems reviewed and unremark able except as noted in history and below [facility] Medical History (Updated 02/26/24 @ 23:37 by Jesu Herman MD) Smoker ?F17.200 - Nicotine dependence, unspecified, uncomplicated (ICD-10) Numbness and tingling ?R20.0 - Anesthesia of skin (ICD-10) ?R20.2 - Paresthesia of skin (ICD-10) Low back pain ?M54.50 - Low back pain, unspecified (ICD-10) Anxiety ?F41.9 - Anxiety disorder, unspecified (ICD-10) Obesity ?E66.9 - Obesity, unspecified (ICD-10) Diabetes ?E11.9 - Type 2 diabetes mellitus without complications (ICD-10) Loud snoring ?R06.83 - Snoring (ICD-10) Heart attack ?I21.9 - Acute myocardial infarction, unspecified (ICD-10) Hypertension ?I10 - Essential (primary) hypertension (ICD-10) Surgical History Exam Constitutional Vital Signs, click to edit/add: Last Vital Signs Temp 98.1 F 02/26/24 22:07 Pulse 71 02/26/24 22:07 Resp 18 02/26/24 22:07 BP 136/69 02/26/24 22:07 Pulse Ox 96 02/26/24 22:07 O2 Del Method Room Air 02/26/24 22:07 Common normals: no apparent distress, average body habitus, oriented x3, no limitations, healthy appearing, alert and well nourished [facility] Common normals: normocephalic and head/scalp atraumatic Eye Common normals: EOMs intact bilaterally and conjunctivae normal Respiratory Common normals: normal respiratory effort, no retractions, no use of accessory muscles and clear to auscultation bilaterally Cardio Common normals: regular rate, regular rhythm, S1 normal heart sound and S2 normal heart sound GI Common normals: Normal to inspection, nondistended, normoactive bowel sounds present, soft to palpation and non-tender Extremity Common normals: normal to inspection and full ROM Neuro Common normals: oriented x3, CN's II-XII intact bilaterally, moves all extremities and no focal motor deficits Psych Appearance: grossly normal Course Vital Signs Vital signs: Vital Signs Temperature 98.1 F 02/26/24 22:07 Pulse Rate 71 02/26/24 22:07 Respiratory Rate 18 02/26/24 22:07 Blood Pressure 136/69 02/26/24 22:07 Pulse Oximetry 96 02/26/24 22:07 Oxygen Delivery Method Room Air 02/26/24 22:07 Temperature 98.1 F 02/26/24 22:07 Pulse Rate 71 02/26/24 22:07 Respiratory Rate 18 02/26/24 22:07 Blood Pressure 136/69 02/26/24 22:07 Pulse Oximetry 96 02/26/24 22:07 Oxygen Delivery Method Room Air 02/26/24 22:07 MDM - Recheck/Abnormal Lab/Rx MDM Narrative Medical decision making narrative: patient present with mod elevation of his blood sugar. Known IDDM who takes lantus. Family concerned tonight because his BS is higher than normal and he had mild flank pain. UA without significant findings. BS treated with SQ humalog. Patient and family are wanting to go rather than wait to have BS rechecked here. Able to monitor it at home. Patient discharged home Lab Data Labs: Lab Results 02/26/24 02/26/24 Range/Units 22:10 22:54 Urine Color Yellow (YELLOW) Urine Clarity Clear (CLEAR) Urine pH 6.0 (5.0-9.0) Ur Specific Sylvester 1.025 (1.005-1.025) Urine Protein Negative (NEG/TRACE) mg/dL Urine Glucose (UA) 100 A (NEGATIVE) mg/dL Urine Ketones Negative (NEGATIVE) mg/dL Urine Occult Blood Negative (NEGATIVE) Urine Nitrite Negative (NEGATIVE) Urine Bilirubin Negative (NEGATIVE) Urine Urobilinogen 0.2 (0.2-1.0) EU/dL Ur Leukocyte Esterase Trace A (NEGATIVE) Urine RBC None seen (0-2) #/HPF Urine WBC 2-5 A (NONE SEEN) #/HPF Ur Squamous Epith Cells Moderate A (NONE/RARE) #/LPF Urine Crystals None seen (None Seen) #/HPF Urine Bacteria None seen (NONE SEEN) #/HPF Urine Casts None seen (NONE SEEN) #/LPF Urine Mucus None seen (NONE SEEN) Ur Culture Indicated? No POC Glucose 252 H (74-106) mg/dL Discharge Plan Discharge Stand Alone Forms: Portal Instructions Chief Complaint: Recheck/Abnormal Lab/Rx Clinical Impression: Hyperglycemia Patient Disposition: Home, Self-Care Prescriptions / Home Meds: No Action atorvastatin 40 mg tablet lisinopril 20 mg tablet clopidogrel 75 mg tablet baclofen 10 mg tablet trazodone 150 mg tablet metoprolol tartrate 50 mg tablet albuterol sulfate [ProAir HFA] 90 mcg/actuation HFA aerosol inhaler INHALATION metformin 750 mg tablet extended release 24 hr PO bupropion HCl 300 mg tablet extended release 24 hr PO pregabalin 100 mg capsule budesonide-formoterol [Symbicort] 160-4.5 mcg/actuation HFA aerosol inhaler INHALATION insulin glargine [Lantus Solostar U-100 Insulin] 100 unit/mL (3 mL) insulin pen SUBCUT aspirin 81 mg capsule 81 mg PO DAILY citalopram [Celexa] 40 mg tablet 40 mg PO DAILY Print Language: Yoruba Instructions: Diabetic Hyperglycemia (ED) Additional Instructions: continue to monitor blood sugar at home Referrals: Lenore Abad [employer] ADMINISTRATOR [Primary Care Provider] - 1 week
[2024-02-26 22:59] LABS: Bilirubin Urine NEGATIVE (NEGATIVE); Blood Urine NEGATIVE (NEGATIVE); Clarity Urine CLEAR (CLEAR); Color Urine YELLOW (YELLOW); Glucose Urine UA 100 mg/dL (NEGATIVE); Ketones Urine NEGATIVE (NEGATIVE); Leukocyte Esterase Urine TRACE (NEGATIVE); Nitrite Urine NEGATIVE (NEGATIVE); Protein Urine NEGATIVE (NEG/TRACE); Specific Gravity Urine 1.025 (1.005-1.025); Urobilinogen Urine 0.2 EU/dL (0.2-1.0)
[2024-02-26 23:01] LABS: Urine Microscopic Indicated YES
[2024-02-26 23:08] LABS: Bacteria Urine NONE SEEN #/HPF (NONE SEEN); Cast Seen? NONE SEEN #/LPF (NONE SEEN); Crystals Seen? None Seen #/HPF (None Seen); Mucus Urine NONE SEEN (NONE SEEN); RBC Urine NONE SEEN #/HPF (0-2); Squamous Epithelial Cell Urine MODERATE #/LPF (NONE/RARE)
[2024-02-26 23:09] LABS: Urine Culture Indicated NO
[2024-02-26] MEDS: INSULIN ASPART 300 UNIT/3 ML PEN SUBQ (23:29)
[2024-02-26 23:53] VITALS: BP 112/82; PULSE 74; O2SAT 98
== END 2024-02-26 23:53 | disposition home or self-care (01) ==
PROVIDERS: Emergency Provider Internal Medicine; PCP Nurse Practitioner
DX: E11.65 Type 2 diabetes mellitus with hyperglycemia (principal); Z79.4 Long term (current) use of insulin; Z79.84 Long term (current) use of oral hypoglycemic drugs
CPT/HCPCS: 36415; 81001; 99283; J1817

== ENCOUNTER 2024-04-01 08:32 | Outpatient (OUT) | payer OTHER, SELFPAY ==
--- OUTSIDE RECORDS SUMMARY | 2024-04-01 08:52 | XMS_ITS | CCD ---
Author Organization [facility] Care Team Providers Care Broom Builder Name Role Phone Lakshmipathy, Narendrana Attending Provider Unav ailable NON STAFF Primary Care Provider Unavailabl e Lakshmipathy, Narendrana Admitting Unavail able Lakshmipathy, Narendrana Attending Unavail able NON STAFF Primary Care Unavailable AICHHOLZ, MEDICAL ECONOMICS CONSULTANT LENORE Admitting Unavailable AICHHOLZ, MEDICAL ECONOMICS CONSULTANT LENORE Attending Unavailable AICHHOLZ, MEDICAL ECONOMICS CONSULTANT LENORE Primary Care Unavailable ZACK ., DR GERHARD Solorio Admitting Unavailable DIXON ., DR GERHARD Solorio Attending Unavailable AICHHOLZ, MEDICAL ECONOMICS CONSULTANT LENORE Primary Care Unavailable DIXON ., DR GERHARD Solorio Consulting Unavailable LAKSHMIPATHY ., NARENDRANATH Admitting Pati vailable LAKSHMIPATHY ., NARENDLEXATH Attending Pati vailable AICHHOLZ, MEDICAL ECONOMICS CONSULTANT LENORE Primary Care Unavailable LAKSHMIPATHY ., NARENDRANATH Consulting Pati vailable LAKSHMIPATHY ., NARENDRANATH Admitting Pati vailable LAKSHMIPATHY ., NARENDRANATH Attending Pati vailable AICHHOLZ, MEDICAL ECONOMICS CONSULTANT LENORE Primary Care Unavailable HALKER .TAWNY Consulting Unavailable AICHHOLZ, MEDICAL ECONOMICS CONSULTANT LENORE Admitting Unavailable AICHHOLZ, MEDICAL ECONOMICS CONSULTANT LENORE Attending Unavailable AICHHOLZ, MEDICAL ECONOMICS CONSULTANT LENORE Primary Care Unavailable AICHHOLZ, MEDICAL ECONOMICS CONSULTANT LENORE Consulting Unavailable DANY RODRÍGUEZ Consulting Unavailable AICHHOLZ, MEDICAL ECONOMICS CONSULTANT LENORE Admitting Unavailable AICHHOLZ, MEDICAL ECONOMICS CONSULTANT LENORE Attending Unavailable AICHHOLZ, MEDICAL ECONOMICS CONSULTANT LENORE Primary Care Unavailable AICHHOLZ, MEDICAL ECONOMICS CONSULTANT LENORE Consulting Unavailable AICHHOLZ, MEDICAL ECONOMICS CONSULTANT LENORE Admitting Unavailable AICHHOLZ, MEDICAL ECONOMICS CONSULTANT LENORE Attending Unavailable AICHHOLZ, MEDICAL ECONOMICS CONSULTANT LENORE Primary Care Unavailable GRISELDA ABAD Consulting Unavailable LUÍS CORTES Consulting Unavailable Lenore Lopez Primary Care Provider LENORE ABAD Attending Unavailable LENORE ABAD Attending Unavailable LENORE ABAD Attending Unavailable Allergies Allergy Classification Reported Allergen(s) Allergy Type Date of Onset Reaction(s) Facility (3 sources) Penicillins; Translations: [Penicillins] Allergy to substance 09-24-2016 [facility] (1 source) Penicillin Drug Allergy 05-20-2022 [facility] Repository Medications Current Medications Medication Drug Class(es) Dates Sig (Normalized) Sig (Original) aspirin 81 mg delayed release oral tablet (1 source) Platelet Aggregation Inhibitor, Nonsteroidal Anti-inflammatory Drug Start: 11-17-2017 take 1 tablet by mouth once daily aspirin 81 mg Indications: Atherosclerosis of [place] coronary artery of [place] heart without angina pectoris Take 1 tablet (81 mg total) by mouth once daily. 90 tablet 3 11/17/2017 Active atorvastatin 40 mg oral tablet (1 source) HMG-CoA Reductase Inhibitor Start: 11-17-2017 take 1 tablet by mouth once daily atorvastatin (LIPITOR) 40 mg tablet Indications: Atherosclerosis of [place] coronary artery of [place] heart without angina pectoris Take 1 tablet [...] (PLAVIX) 75 mg tablet Indications: Atherosclerosis of [place] coronary artery of [place] heart without angina pectoris take 1 tablet [...] (PRINIVIL,ZESTRIL) 20 mg tablet Indications: Atherosclerosis of [place] coronary artery of [place] heart without angina pectoris Take 1 tablet [...] (LOPRESSOR) 50 mg tablet Indications: Atherosclerosis of [place] coronary artery of [place] heart without angina pectoris Take 1 tablet [...] Coronary arteriosclerosis; Translations: [Atherosclerotic heart disease of [place] coronary artery without angina pectoris] 06-07-2019 Chronic [...] mri xrayon 11-05 XR pre/post mri xray [place] [address] MRI Report Signed Patient: Jose Delacruz MR#: [id number] 44 : 1965 Acct:[id number] Age/Sex: 57 / M ADM Date: 11/05/22 Loc: MR Room: Type: [facility] Attending Dr: Maria Teresa Montes Copies to: Jimmy Montes Ordering Provider: Jimmy Montes Date of Service: 11/05/22 MR/MR lumbar spine wo con: LUMBAR RADICULOPATHY ([id number]) XR/XR pre/post mri xray: LUMBAR RADIC MRI [...] Gareth Armenta M.D.11/05/2022 3:43 PM Dictation Location: [place] [address] Transcribed By: [facility] 11/05/22 1543 Dictated By: Gareth Armenta DO 11/05/22 1537 Signed By: 11/05/22 1543 Normal [facility] US SINGLE QUAD RT UPPERon US SINGLE [...] by: LUÍS CORTES Date: 2022-02-26 17:17 Normal [facility] XR LSPINE 2_3 VIEWSon 2021 XR LSPINE [...] by: DANY RODRÍGUEZ Date: 2022-02-05 09:40 Normal [facility] GLYCOHEMOGLOBIN A1Con 2021 ADA RECOMMENDATION SEE BELOW Normal [facility] Comment on above: Result Comment: ADA RECOMMENDED LIMIT 4.0 - 6.0 ADA THERAPEUTIC TARGET < 7.0 ACTION SUGGESTED > 7.0 Performed By: #### A 1C #### [facility] [address] [place] [address] Dr. Josue Fierro Glucose [Mass/Vol] 148 mg/dL Normal [facility] Comment on above: Performed By: #### A 1C #### [facility] [address] [place] [address] Dr. Josue Fierro HbA1c (Bld) [Mass fraction] 6.8 % Critically high 4.5-6.2 [facility] Comment on above: Performed By: #### A 1C #### [facility] [address] [place] [address] Dr. Josue Fierro PROF 14(COMP METB)on 022 Albumin [Mass/Vol] 3.4 g/dL Normal 3.4-5.0 [facility] Comment on above: Performed By: #### C MP #### [facility] [address] [place] [address] Dr. Josue Fierro Albumin/Globulin [Mass ratio] 0.9 {ratio} Normal [facility] Comment on above: Performed By: #### C MP #### [facility] [address] [place] [address] Dr. Josue Fierro ALP [Catalytic activity/Vol] 133 U/L Critically high 46-116 [facility] Comment on above: Performed By: #### C MP #### [facility] [address] [place] [address] Dr. Josue Fierro ALT [Catalytic activity/Vol] 28 U/L Normal 16-63 [facility] Comment on above: Performed By: #### C MP #### [facility] [address] [place] [address] Dr. Josue Fierro Anion gap [Moles/Vol] 12.3 mmol/L Normal [facility] Comment on above: Performed By: #### C MP #### [facility] [address] [place] [address] Dr. Josue Fierro AST [Catalytic activity/Vol] 15 U/L Normal 15-37 [facility] Comment on above: Performed By: #### C MP #### [facility] [address] [address] [address] Josue Fierro Bilirubin [Mass/Vol] 0.2 mg/dL Normal 0.2-1.0 [facility] Comment on above: Performed By: #### C MP #### [facility] [address] [address] [address] Josue Fierro Calcium [Mass/Vol] 9.1 mg/dL Normal 8.5-10.1 [facility] Comment on above: Performed By: #### C MP #### [facility] [address] [address] [address] Josue Fierro Chloride [Moles/Vol] 100 mmol/L Normal 98-107 [facility] Comment on above: Performed By: #### C MP #### [facility] [address] [address] [address] Josue Fierro CO2 [Moles/Vol] 28.2 mmol/L Normal 21.0-32.0 [facility] Comment on above: Performed By: #### C MP #### [facility] [address] [address] [address] Josue Fierro Creatinine [Mass/Vol] 1.10 mg/dL Normal 0.70-1.30 [facility] Comment on above: Performed By: #### C MP #### [facility] [address] [address] [address] Josue Fierro EGFR-AF SPANISH >60 Normal >=60 [facility] Comment on above: Performed By: #### C MP #### [facility] [address] [address] [address] Josue Fierro EGFR-NON AF SPANISH >60 Normal >=60 [facility] Comment on above: Performed By: #### C MP #### [facility] [address] [address] [address] Josue Fierro Globulin (S) [Mass/Vol] 3.8 g/dL Normal [facility] Comment on above: Performed By: #### C MP #### [facility] [address] [address] [address] Josue Fierro Glucose [Mass/Vol] 153 mg/dL Critically high 74-106 [facility] Comment on above: Performed By: #### C MP #### [facility] [address] [address] [address] Josue Fierro Potassium [Moles/Vol] 5.5 mmol/L Critically high 3.5-5.1 [facility] Comment on above: Performed By: #### C MP #### [facility] [address] [address] [address] Josue Fierro Protein [Mass/Vol] 7.2 g/dL Normal 6.4-8.2 [facility] Comment on above: Performed By: #### C MP #### [facility] [address] [address] [address] Josue Fierro Sodium [Moles/Vol] 135 mmol/L Critically low 136-145 [facility] Comment on above: Performed By: #### C MP #### [facility] [address] [address] [address] Josue Fierro Urea nitrogen [Mass/Vol] 11.0 mg/dL Normal 7.0-18.0 [facility] Comment on above: Performed By: #### C MP #### [facility] [address] [address] [address] Josue Fierro Urea nitrogen/Creatinine [Mass ratio] 10.0 mg/mg Normal [facility] Comment on above: Performed By: #### C MP #### [facility] [address] [address] [address] Josue Fierro Vital Signs Date Time Vital Sign Value Performing Clinician Baldo jacinto 11-05-2022 11:12-0400 Diastolic blood pressure 75 mm[Hg] [facility] 11-05-2022 11:12-0400 Heart rate 72 /min [facility] 11-05-2022 11:12-0400 Respiratory rate 16 /min [facility] 11-05-2022 11:12-0400 SaO2% (BldA) [Mass fraction] 97 % [facility] 11-05-2022 11:120400 Systolic blood pressure 142 mm[Hg] [facility] 11-05-2022 11:080400 Body height 180.34 cm [facility] 11-05-2022 11:08040 Body weight 138.34 kg [facility] Encounters Encounter Date Encounter Type Care Provider Facility Start: 03-28-2024 End: 03-28-2024 ambulatory LENORE AICHHOLZ Not Available Start: 12-10-2023 End: 12-10-2023 ambulatory LENORE AICHHOLZ Not Available Start: 11-04-2023 Telephone encounter [facility] Work Phone: [facility] Start: 07-23-2023 End: 07-23-2023 ambulatory LENORE AICHHOLZ Not Available Start: 12-11-2022 End: 12-12-2022 ambulatory NARENDRANATH TDSHMIPATHY . Facility:[facility] Start: 11-05-2022 End: 11-05-2022 ambulatory Narendrana Tdshmipathy Facility:[facility] Start: 11-05-2022 End: 11-05-2022 ambulatory NON STAFF [facility] Work Phone: Start: 11-05-2022 End: 11-05-2022 Patient encounter procedure Scottya Fernandamipathy [facility] [place] Work Phone: Start: 09-30-2022 End: 10-01-2022 ambulatory NARENDRANATH LAKSHMIPATHY . Facility:[facility] Start: 05-20-2022 End: 05-21-[address] GERHARD DIXON . Facility:[facility] Start: 02-26-2022 End: 02-28-2022 ambulatory MEDICAL ECONOMICS CONSULTANT LENORE AICHVANZ Facility:[facility] Start: 02-26-2022 End: 02-27-2022 ambulatory MEDICAL ECONOMICS CONSULTANT LENORE AICHHOLZ Facility:[facility] Start: 02-04-2022 End: 02-05-2022 ambulatory GRISELDA ABAD Facility:[facility] Start: 01-31-2022 End: 02-01-2022 ambulatory GRISELDA ABAD Facility:[facility] Procedures Date Procedure Procedure Detail Performing Clinician Start: 11-05-2022 XR pre/post mri xray Na kellie Michaelmipathy Start: 11-05-2022 MR lumbar spine wo con Narendrana Fernandamipathy Plan of Treatment Date Care Activity Detail Author Start: 04-03-2024 Influenza vaccination Influenza Vaccine [facility] Start: 2015 Administration of varicella zoster vaccine Zoster (Shingles) Vaccine (1 of 2) [facility] Start: 1984 DTaP,Tdap and Td Vaccines (1 - Tdap) DTaP,Tdap and Td Vaccines (1 - Tdap) [facility] Start: 1983 Adult BMI Screening Adult BMI Screening [facility] Start: 1977 Depression Screening Depression Screening [facility] Start: 1977 Tobacco Screening Tobacco Screening [facility] Payers Date Payer Category Payer Self-pay 2022 Medicaid [employer] H[employer] 2022-Present [phone] [address] [place] [address] [id number] 1965 Unknown [id number] 1965 Unknown [id number] [id number] 1965 Unknown [id number] [id number] 1965 Unknown [id number] [id number] 1965 Unknown [id number] [id number] 1965 Unknown [id number] [id number] 1965 Unknown [id number] [id number] 1965 Unknown [id number] [id number] 1965 Unknown [id number] [id number] 1965 Unknown [id number] 1959 Medicaid [id number] 1959 Unknown [id number] 1959 Unknown [id number] Unknown [id number] Social History Date Type Detail Facility Tobacco smoking stat [facility] Unknown if ever smoked [facility] Work Phone: Start: 1965 Sex Assigned At Male F [facility] Start: 06-09-2019 [facility] daily [facility] History of tobacco use Cigarette Smoker P [facility] Start: 06-09-2019 End: 08-16-2020 Cigarettes smoked current (pack per day) - Reported 1 [facility] Start: 06-09-2019 Tobacco use and exposure Smokeless tobacco non-user [facility] Start: 06-09-2019 Alcohol intake Ex-drinker (finding) [facility] Start: 05-18-2019 End: 08-16-2020 Tobacco use panel [facility] Childcare Unknown [facility] Start: 1965 Sex Assigned At Not on file P [facility] Note 11-04-2023 Telephone Encounter - Estela Jacobsen - 11/04/2023 3:52 PM EDT Note Date & Type Note Facility 11-04-2023 Miscellaneous Notes Formattin g of this note might be different from the original. Received faxed referral for patient to be seen for Lumbar. Unable to reach patient or leave message, # not in service. [facility] this encounter [facility] Tele[facility] encounter Note 11-04-2023 Telephone Encounter - Estela Walsh - 11/04/2023 3:52 PM EDT Note Date & Type Note Facility 11-04-2023 Telephone encount er Note Received faxed referral for patient to be seen for Lumbar. Unable to reach patient or leave message, # not in service. [facility] Consultation note 09-30-2022 Note Date & Type [...] avoid surgery, if at all possible. [facility] Consultation note 05-20-2022 Note Date & Type [...] were prescribed. CC: Lenore Abad CNP [facility] Consultation note 05-20-2022 Note Date & Type Note Facility 05-20-2022 Note CONSULTATION CONSULTATION DATE: 05/20/2022 ADDENDUM NOTE: Patient has done a total of 6-8 weeks of home exercises in a sitting position with leg extensions and pushing/pulling exercises. He does use a walker. He has been on ocean transportation intermediary treatment with Lyrica 100 mg t.i.d. with current maintenance of his radicular pain. MUSCULOSKELETAL: His motor is 4/5 bilaterally with slight motor weakness noted to the right anterior tibialis. Extensors are intact. NEUROLOGICALLY: Patient is cognitively intact. He has +1 bilateral patellar and Achilles reflexes. [facility] Evaluation note Note Date & Type Note Facility Evaluation note No assessment information [facility] Work Phone: Instructions Note Date & Type Note Facility Instructions Not on filedocumented in this en counter [facility] Chief Complaint and Reason for Visit Chief [...] Active NON STAFF Primary Care Provider Active Broom Builder Relationship Specialty Start Date End Date Lenore Abad, COMMISSIONER OF RELOCATION SERVICES-MEDICAL ECONOMICS CONSULTANT [address] [place] [address] PCP - General Nurse Practitioner 06/09/19 Goals (unrecognized section and content) Goals may be documented in a n alternate sectionNot on filedocumented as of this encounter (unrecognized sect ion and content) No Status Records FoundNo Status Records FoundNo Status Records Found INFORMATION SOURCE (unrecogn ized section and content) DATE CREATED AUTHOR 11/18/[address] [facility] DATE CREATED AUTHOR AUTHOR'S ORGANIZ ATION 12/15/2022 [facility] DATE CREATED AUTHOR AUTHOR'S ORGANIZ ATION 03/30/2024 [facility] EPIC FOR RECORDS PERTAINING TO PATIENTS WHO ARE [...] BE BASED ON THE PRIMARY CLINICAL RECORDS. [employer] provides no warranty or guarantee of the accuracy or completeness of information in this document.
[2024-04-01 09:05] LABS: Basophils Absolute Auto 0.1 10^3/uL (0.0-0.1); Basophils Percent Auto 0.5 % (0.2-2.0); Eosinophils Absolute Auto 0.3 10^3/uL (0.0-0.7); Eosinophils Percent Auto 1.8 % (0.9-7.0); Hematocrit 44.6 % (42.0-54.0); Hemoglobin 15.2 g/dL (14.0-18.0); Immature Granulocytes Abs Auto 0.05 10^3/uL (0.00-0.03); Immature Granulocytes Pct Auto 0.4 % (0.0-0.5); Lymphocytes Absolute Auto 2.4 10^3/uL (1.2-3.8); Lymphocytes Percent Auto 17.7 % (20.5-60.0); Mean Corpuscular HGB Conc 34.1 g/dL (29.9-35.2); Mean Corpuscular Hemoglobin 31.1 pg (25.9-34.0); Mean Corpuscular Volume 91.4 fL (80.0-94.0); Mean Platelet Volume 9.3 fL (9.5-13.5); Monocytes Absolute Auto 0.8 10^3/uL (0.3-0.8); Monocytes Percent Auto 5.5 % (1.7-12.0); Neutrophils Absolute Auto 10.2 10^3/uL (1.4-6.5); Neutrophils Percent Auto 74.1 % (43.0-75.0); Platelet Count 262 10^3/uL (150-450); Red Blood Count 4.88 10^6/uL (4.70-6.10); Red Cell Distribution Width 12.5 % (11.0-15.0); White Blood Count 13.7 10^3/uL (4.0-11.0)
[2024-04-01 09:07] LABS: Bilirubin Urine NEGATIVE (NEGATIVE); Blood Urine NEGATIVE (NEGATIVE); Clarity Urine CLEAR (CLEAR); Color Urine LT. YELLOW (YELLOW); Glucose Urine UA NEGATIVE (NEGATIVE); Ketones Urine NEGATIVE (NEGATIVE); Leukocyte Esterase Urine NEGATIVE (NEGATIVE); Nitrite Urine NEGATIVE (NEGATIVE); Protein Urine NEGATIVE (NEG/TRACE); Specific Gravity Urine 1.025 (1.005-1.025); Urobilinogen Urine 0.2 EU/dL (0.2-1.0); pH Urine 5.5 (5.0-9.0)
[2024-04-01 09:09] LABS: Urine Microscopic Indicated NO
[2024-04-01 10:10] LABS: Alanine Aminotransferase 24 U/L (16-63); Albumin Globulin Ratio 0.9; Albumin Level 3.4 g/dL (3.4-5.0); Alkaline Phosphatase 96 U/L (46-116); Anion Gap 12.9; Aspartate Amino Transferase 12 U/L (15-37); BUN Creatinine Ratio 9.6; Bilirubin Total 0.3 mg/dL (0.2-1.0); Calcium 9.1 mg/dL (8.5-10.1); Carbon Dioxide 26.3 mmol/L (21.0-32.0); Chloride 103 mmol/L (98-107); Chol HDL Ratio 4.7; Cholesterol 203 mg/dL (<=200); Estimated GFR (African America >60 (>=60); Estimated GFR (Non-African Ame 54 (>=60); Globulin 3.9 g/dL; Glucose 136 mg/dL (74-106); HDL Cholesterol 43 mg/dL (40-60); Potassium 5.2 mmol/L (3.5-5.1); Sodium 137 mmol/L (136-145); Total Protein 7.3 g/dL (6.4-8.2); Triglycerides 135 mg/dL (<=150)
[2024-04-01 11:02] LABS: Estimated Average Glucose 137 mg/dL; Glycohemoglobin A1C 6.4 % (4.5-6.2)
[2024-04-01 11:19] LABS: Creatinine Urine Random 104.35 mg/dL (20.00-300.00); Microalbumin Urine Random <1.3 mg/dL (<=30.0)
[2024-04-01 11:49] LABS: Prostate Specific Antigen Scrn 0.66 ng/mL (<=4.00)
== END 2024-04-01 08:33 | disposition home or self-care (01) ==
LOC: LAB 08:35
PROVIDERS: PCP Nurse Practitioner; Visit Provider Nurse Practitioner
DX: J44.9 Chronic obstructive pulmonary disease, unspecified (principal); E11.9 Type 2 diabetes mellitus without complications; Z79.4 Long term (current) use of insulin; Z12.5 Encounter for screening for malignant neoplasm of prostate; I25.10 Atherosclerotic heart disease of native coronary artery without angina pectoris; I10 Essential (primary) hypertension; E78.2 Mixed hyperlipidemia; F17.200 Nicotine dependence, unspecified, uncomplicated
CPT/HCPCS: 36415; 80053; 80061; 81003; 82043; 82570; 83036; 85025; G0103

== ENCOUNTER 2024-07-12 08:53 | Outpatient (OUT) | payer OTHER, SELFPAY ==
[2024-07-12 09:38] LABS: Alanine Aminotransferase 24 U/L (16-63); Anion Gap 13.4; Aspartate Amino Transferase 11 U/L (15-37); BUN Creatinine Ratio 8.5; Calcium 9.2 mg/dL (8.5-10.1); Carbon Dioxide 27.4 mmol/L (21.0-32.0); Chloride 101 mmol/L (98-107); Chol HDL Ratio 4.7; Cholesterol 189 mg/dL (<=200); Estimated GFR (African America >60 (>=60 mL/min/1.73m^2); Estimated GFR (Non-African Ame 51 (>=60 mL/min/1.73m^2); Glucose 173 mg/dL (74-106); HDL Cholesterol 40 mg/dL (40-60); LDL Cholesterol Calculated 127.2 mg/dL; Potassium 4.8 mmol/L (3.5-5.1); Sodium 137 mmol/L (136-145); Triglycerides 109 mg/dL (<=150); VLDL CHOLESTEROL 21.8 mg/dL
== END 2024-07-12 08:54 | disposition home or self-care (01) ==
LOC: LAB 08:54
PROVIDERS: PCP Nurse Practitioner; Visit Provider Nurse Practitioner
DX: E78.2 Mixed hyperlipidemia (principal); E87.5 Hyperkalemia
CPT/HCPCS: 36415; 80048; 80061; 84450; 84460

== ENCOUNTER 2024-09-14 08:38 | Outpatient (OUT) | payer OTHER, SELFPAY ==
[2024-09-14 09:30] LABS: Alanine Aminotransferase 28 U/L (16-63); Albumin Globulin Ratio 0.8; Albumin Level 3.7 g/dL (3.4-5.0); Alkaline Phosphatase 152 U/L (46-116); Anion Gap 13.5; Aspartate Amino Transferase 17 U/L (15-37); BUN Creatinine Ratio 8.8; Bilirubin Total 0.3 mg/dL (0.2-1.0); Calcium 9.5 mg/dL (8.5-10.1); Carbon Dioxide 29.9 mmol/L (21.0-32.0); Chloride 99 mmol/L (98-107); Cholesterol 137 mg/dL (<=200); Estimated GFR (African America >60 (>=60 mL/min/1.73m^2); Estimated GFR (Non-African Ame 59 (>=60 mL/min/1.73m^2); Globulin 4.4 g/dL; Glucose 145 mg/dL (74-106); HDL Cholesterol 45 mg/dL (40-60); Potassium 4.4 mmol/L (3.5-5.1); Sodium 138 mmol/L (136-145); Total Protein 8.1 g/dL (6.4-8.2); Triglycerides 85 mg/dL (<=150)
== END 2024-09-14 08:39 | disposition home or self-care (01) ==
LOC: LAB 08:38
PROVIDERS: PCP Nurse Practitioner; Visit Provider Nurse Practitioner
DX: E78.2 Mixed hyperlipidemia (principal)
CPT/HCPCS: 36415; 80053; 80061

== ENCOUNTER 2024-11-01 10:45 | Outpatient (OUT) | payer OTHER, SELFPAY ==
[2024-11-01 12:26] LABS: Alanine Aminotransferase 27 U/L (16-63); Albumin Globulin Ratio 0.8; Albumin Level 3.3 g/dL (3.4-5.0); Alkaline Phosphatase 138 U/L (46-116); Aspartate Amino Transferase 12 U/L (15-37); Bilirubin Direct 0.1 mg/dL (0.0-0.2); Bilirubin Total 0.3 mg/dL (0.2-1.0); Gamma Glutamyl Transpeptidase 21 U/L (15-85); Globulin 3.9 g/dL; Total Protein 7.2 g/dL (6.4-8.2)
== END 2024-11-01 10:46 | disposition home or self-care (01) ==
LOC: LAB 10:45
PROVIDERS: PCP Nurse Practitioner; Visit Provider Nurse Practitioner
DX: R74.8 Abnormal levels of other serum enzymes (principal)
CPT/HCPCS: 36415; 80076; 82977

== ENCOUNTER 2025-04-28 10:36 | Outpatient (OUT) | payer OTHER, SELFPAY ==
--- OUTSIDE RECORDS SUMMARY | 2023-02-17 10:00 | XMS_ITS | Continuity of Care Document ---
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 [address], [place], [id number], [place]. tel:[phone] Family History Family Member Type Diagnosis Age At Onset No Information Payers Payer name Insurance type Covered constitution party ID Authoriza tion(s) D [employer] ABD [id number] D Medicaid [facility] [id number] Social History Type Description Quantity Date Captured Comments Alcohol Use Details Unknown Caffeine Use Details Unknown Tobacco Use Status No Information Smoking Status No Information Sex Male Sexual Orientation Straight or heterosexual Gender Identity Male Chief Complaint And Reason For Visit No Information Reason For Referral Reason For Referral No Information Plan Of Treatment Date Type Action Status Goal Lipid panel. Due on 023 due Goal Depression screening. Due on due Goal FOBT. Due on due Goal Colonoscopy. Due on 023 due Goal Influenza vaccine. Due on due Goal Tdap Vaccine. Due on 2022 due Goal Zoster vaccine (1st). Due on due Goal Tdap. Due on due Goal PRAPARE ASSESSMENT. Due on due History Of Present Illness Encounter Date Complaint History Of Prese nt Illness No Information Functional Status Date Functional Assessmen t No Information Instructions Date Instruction Additional Infor mation No Information Assessments Type Assessment Date No Information Patient Care Teams Name Effective Dates (start - stop) Status Members No Information
--- OUTSIDE RECORDS SUMMARY | 2025-04-28 10:38 | XMS_ITS | Encounter Summary ---
Author Organization [facility] Address [address] [facility] [place] [address] Care Team Providers Care Facility Mechanic Name Role Phone Hung Marino MD Primary Care Provider [phone] Hung Marino MD Primary Care Provider [phone] Lenore Abad FELT HANGER Unavailable [phone] Esthela Bee DO Unavailable [phone] Yasmeen Lewis FELT HANGER Unavailable [phone] Lenore Abad FELT HANGER Unavailable [phone] Encounter Details Date Type Department Care Team (Late st Contact Info) Description 02/02/2023 Abstract [facility] [address] [place] [address] Lenore Abad NP [address] [place] [address] Social History Tobacco Use Types Packs/Day Years Used Date Smoking Tobacco: Every Day Cigarettes Tobacco Cessation:Ready to Q uit: Not Asked; Counseling Given: Not Answered Sex and Gender Information Value Date Recorded Sex Assigned at Not on file Legal Sex Male 6:40 PM EDT Gender Identity Not on file Sexual Orientation Not on file documented as of this encounter Plan of Treatment Not on file documented as of this encounter Visit Diagnoses Not on filedocumented in this encounter Care Teams Facility Mechanic Relationship Specialty Start Date End Date Hung Marino MD PCP - General Family Medicine 6/27/23 5/8/24 Hung Marino MD PCP - General Family [facility] 12/10/23 Lenore Abad NP [address] [place] [address] PCP - [facility] 08/03/24 Lenore Abad NP Nurse Practitioner Family Medicine 12/10/23 Esthela Bee DO [address] [place] [address] Referring Physician Neurology 08/16/24 Yasmeen Lewis NP [address] [place] [address] Nurse Practitioner Neurology 08/16/24 documented as of this encounter
--- OUTSIDE RECORDS SUMMARY | 2025-04-28 10:38 | XMS_ITS | Encounter Summary ---
Author Organization [facility] Address [address] [place] [address] [place] [address] Care Team Providers Care Unit Secy Name Role Phone Hung Marino MD Primary Care Provider Lenore Abad AML ANALYST Unavailable [phone] RohitEsthela DO Unavailable [phone] Yasmeen Lewis AML ANALYST Unavailable [phone] Lenore Abad AML ANALYST Unavailable [phone] Encounter Details Date Type Department Care Team (Late st Contact Info) Description 03/29/2024 Orders Only [facility] [address] [place] [address] Lenore Abad NP [address] [place] [address] Social History Tobacco Use Types Packs/Day Years Used Date Smoking Tobacco: Every Day Cigarettes Alcohol Use Standard Drinks/Week Comments Never 0 (1 standard drink = 0.6 oz pur e alcohol) caffine: coffee 2 cups daily Sex and Gender Information Value Date Recorded Sex Assigned at Not on file Legal Sex Male 6:40 PM EDT Gender Identity Not on file Sexual Orientation Not on file documented as of this encounter Plan of Treatment Not on file documented as of this encounter Procedures Procedure Name Priority Date/Time Associated Diagnosis Comments DIABETIC RETINOPATHY SCREENING - OU - BOTH EYES Routine 03/29/2024 11:12 AM EDT documented in this encounter Results * Diabetic Retinopathy Screening - OU - Both Eyes (03/29/2024 11:12 AM EDT) Anatomical Region Laterality Modality Head Other Lenore Abad NP OPHTH PHOTOGRAPHY Final Result documented in this encounter Visit Diagnoses Not on filedocumented in this encounter Care Teams Unit Secy Relationship Specialty Start Date End Date Hung Marino MD PCP - General Family Medicine 12/10/23 Lenore Abad NP [address] [place] [address] PCP - [facility] 08/03/24 Lenore Abad NP Nurse Practitioner Family Medicine 12/10/23 Esthela Bee DO [address] [place] [address] Referring Physician Neurology 08/16/24 Yasmeen Lewis NP [address] [place] [address] Nurse Practitioner Neurology 08/16/24 documented as of this encounter
--- OUTSIDE RECORDS SUMMARY | 2025-04-28 10:38 | XMS_ITS | Clinical Summary ---
Author Organization [facility] Address [address] [place] [address] Care Team Providers Care Casing Man Name Role Phone Hung Marino MD Primary Care Provider [phone] AicLenore mckenzie SUPERVISOR MAILS Unavailable [phone] RohitEsthela DO Unavailable [phone] Yasmeen Lewis SUPERVISOR MAILS Unavailable [phone] AicLenore mckenzie SUPERVISOR MAILS Unavailable [phone] Allergies Active Allergy Reactions Criticality Noted Date Comments Penicillins 07/23/2023 Medications Misc. Devices (Quad Cane) misc Act nicolas Continuous Blood Gluc Technician Plant And Maintenance (Book&TableStyle Marc 14 Day [place]) deviceIndications: Type 2 diabetes mellitus with diabetic polyneuropathy, with long-term current use of insulin (HCC) 1 each in the morning. 8 each 1 3 Active metaxalone (Skelaxin) 800 MG tabletIndications: DDD (degenerative disc disease), lumbar Take 1 tablet (800 mg) by mouth every 8 (eight) hours if needed for muscle spasms Take 800 mg by mouth every 8 (eight) hours if needed for muscle spasms 270 tablet 1 4 Active buPROPion XL (Wellbutrin XL) 300 MG 24 hr tabletIndications: Current mild episode of major depressive disorder without prior episode Take 1 tablet (300 mg) by mouth Daily Do not crush, chew, or split 90 tablet 1 5 Active insulin glargine (Lantus) 100 UNIT/ML injectionIndicatio ns:Type 2 diabetes mellitus with diabetic polyneuropathy, with long-term current use of insulin (HCC) Inject 18 Units under the skin at bedtime 18 mL 5 Active atorvastatin (Lipitor) 80 MG tabletIndications: Mixed hyperlipidemia Take 1 tablet (80 mg) by mouth at bedtime 90 tablet 1 5 Active budesonide-formote rol (Symbicort) 160-4.5 MCG/ACT inhalerIndications :Chronic obstructive pulmonary disease, unspecified COPD type ([facility]) Inhale 2 puffs in the morning and 2 puffs before bedtime. Rinse mouth with water after use to reduce aftertaste and incidence of candidiasis. Do not swallow.. 3 each 5 Active citalopram (CeleXA) 40 MG tabletIndications: Current mild episode of major depressive disorder without prior episode Take 1 tablet (40 mg) by mouth Daily Take 40 mg by mouth in the morning.Take 1 tablet (40 mg) by mouth in the morning. Take 40 mg by mouth in the morning.. 90 tablet 1 5 Active lisinopril 20 MG tabletIndications: Primary hypertension Take 1 tablet (20 mg) by mouth Daily Take 20 mg by mouth in the morning. 90 tablet 5 Active metFORMIN XR (Glucophage-XR) 750 MG 24 hr tabletIndications: Type 2 diabetes mellitus with diabetic polyneuropathy, with long-term current use of insulin ([facility]) Take 1 tablet (750 mg) by mouth in the morning and 1 tablet (750 mg) in the evening. Take with meals. 180 tablet 1 5 Active metoprolol tartrate (Lopressor) 50 MG tabletIndications: Coronary artery disease involving tejon coronary artery of tejon heart without angina pectoris,Primary hypertension Take 1 tablet (50 mg) by mouth in the morning and 1 tablet (50 mg) before bedtime. Take 50 mg by mouth in the morning and 50 mg before bedtime.. 180 tablet 5 Active traZODone (Desyrel) 150 MG tabletIndications: Other insomnia Take 1 tablet (150 mg) by mouth at bedtime Take 150 mg by mouth at bedtime 90 tablet 1 5 Active pregabalin (Lyrica) 150 MG capsuleIndications :Type 2 diabetes mellitus with diabetic polyneuropathy, with long-term current use of insulin (HCC),Lumbar radiculopathy, chronic,Painful diabetic neuropathy (HCC) Take 1 capsule (150 mg) by mouth every 8 (eight) hours 90 capsule 3 5 Active lidocaine (Lidoderm) 5 % patchIndications:L umbar radiculopathy, chronic Apply 1 patch to affected area may leave on for 12 hours then remove, no more than 2 patch on at any time 60 patch 5 5 Active Aspirin Low Dose 81 MG EC tablet Take 81 mg by mouth Daily 5 Active Droplet Pen [place] 32G X 5 MM misc 5 Active Lantus SoloStar 100 UNIT/ML pen Inject 18 Units under the skin at bedtime 5 Active ezetimibe (Zetia) 10 MG tabletIndications: Coronary artery disease involving te[place] coronary artery of tejon heart without angina pectoris,Mixed hyperlipidemia Take 1 tablet (10 mg) by mouth Daily 90 tablet 5 025 Active Active Problems Problem Noted Date Diagnosed Date Body mass index (BMI) 38.0-38.9, adult 5 Weakness of both lower extremities 06/27/2024 Assessment & Plan (09/26/2024 5:07 PM EST): Neurology does not believe parkinson's They have ordered an MRI brain and also considering EMG But suspect more related to DN Continue with neurology Wants a new neurologist referral did not care for the one he saw Will refer to lori gilliland Assessment & Plan (06/27/2024 6:50 PM EST): Differentials: DN, lumbar radiculopathy, or ??parkinson's Refer to Neurology Cigarette nicotine dependence without complicati on 03/28/2024 Assessment & Plan (09/26/2024 7:40 AM EST): The patient has been advised of the risks of continued smoking: stroke, [place], all forms of cancer, lung disease, and . Options for quitting smoking include: cold turkey, hypnosis, acupuncture, nicotine replacement meds (gum, lozenges, and patches), Buproprion, and Varenicline. At this time pt is encouraged to evaluate their goals for wanting to quit smoking, and reach out to provider when ready to start this process Insomnia 10/27/2023 Assessment & Plan (09/26/2024 4:58 PM EST): Continue with trazodone Assessment & Plan (06/27/2024 5:58 PM EST): Takes trazadone to help with sleep Does well Lumbar radiculopathy, chronic 10/27/2023 Painful diabetic neuropathy 10/27/2023 Parkinson's disease without dyskinesia, without mention of fluctuations 10/27/2023 Assessment & Plan (06/27/2024 6:49 PM EST): Does not follow with neurology No sure if weakness is related to this, or DN, or lumbar radiculopathy Chronic obstructive pulmonary disease, unspecifi ed 10/27/2023 Assessment & Plan (09/26/2024 7:38 AM EST): Current meds: symbicort Assessment & Plan (06/27/2024 5:58 PM EST): Continue with inhalers Assessment & Plan (03/28/2024 8:25 PM EDT): Recommend quitting smoking Assessment & Plan (12/10/2023 9:03 AM EDT): Stable, no change in inhalers Myocardial infarct 10/27/2023 Erectile dysfunction 10/27/2023 Type 2 diabetes mellitus 10/27/2023 Assessment & Plan (09/26/2024 4:52 PM EST): Check blood sugars daily, notify if <70 or >200. Take medications (pills or insulin) as directed. Monitor for s/s of hypoglycemia (sweaty, dizziness, nausea, vomiting, or shakiness). Watch for increase in thirst, urination, or appetite. Inspect feet frequently monitoring for open wounds , and also recommend yearly eye exam. Pt should attempt to remain as physically active as chronic conditions allow, as well as trying to follow a diet low in carbohydrates, and simple sugars. Current meds: metformin, asa, statin, angel A1c 7.6% 09/26/24 Assessment & Plan (06/27/2024 5:58 PM EST): Check blood sugars daily, notify if <70 or >200. Take medications (pills or insulin) as directed. Monitor for s/s of hypoglycemia (sweaty, dizziness, nausea, vomiting, or shakiness). Watch for increase in thirst, urination, or appetite. Inspect feet frequently monitoring for open wounds , and also recommend yearly eye exam. Pt should attempt to remain as physically active as chronic conditions allow, as well as trying to follow a diet low in carbohydrates, and simple sugars. A1c due after 07/04/24, order given Assessment & Plan (03/28/2024 8:26 PM EDT): Check blood sugars daily, notify if <70 or >200. Take medications (pills or insulin) as directed. Monitor for s/s of hypoglycemia (sweaty, dizziness, nausea, vomiting, or shakiness). Watch for increase in thirst, urination, or appetite. Inspect feet frequently monitoring for open wounds , and also recommend yearly eye exam. Pt should attempt to remain as physically active as chronic conditions allow, as well as trying to follow a diet low in carbohydrates, and simple sugars. Assessment & Plan (12/10/2023 9:03 AM EDT): Check blood sugars daily, notify if <70 or >200. Take medications (pills or insulin) as directed. Monitor for s/s of hypoglycemia (sweaty, dizziness, nausea, vomiting, or shakiness). Watch for increase in thirst, urination, or appetite. Inspect feet frequently monitoring for open wounds , and also recommend yearly eye exam. Pt should attempt to remain as physically active as chronic conditions allow, as well as trying to follow a diet low in carbohydrates, and simple sugars. Fu in 3 months , labs dues after 12/29/23 Elevated alkaline phosphatase level 10/27/2023 Assessment & Plan (09/26/2024 7:40 AM EST): Recent lab sl elevation Hyperkalemia 10/27/2023 Screening for prostate cancer 10/27/2023 Overview (04/06/2024): 03/26: PSA 0.66 Class 3 severe obesity due t o excess calories with body mass index (BMI) of 40.0 to 44.9 in adult 07/23/2023 Assessment & Plan (09/26/2024 4:55 PM EST): Discussed with patient their BMI (actual, verses recommended). We have also discussed lifestyle modifications: attempts to perform physical activity as chronic conditions allow, also to monitor dietary intake: increasing protein/fruits/veggies and lowering carb intake (unless contraindicated). Limit sodas, juices, and sugary drinks. Has lost 5 pounds since 06/26 Assessment & Plan (06/27/2024 5:58 PM EST): Discussed with patient their BMI (actual, verses recommended). We have also discussed lifestyle modifications: attempts to perform physical activity as chronic conditions allow, also to monitor dietary intake: increasing protein/fruits/veggies and lowering carb intake (unless contraindicated). Limit sodas, juices, and sugary drinks. DDD (degenerative disc disease), lumbar 07/23/20 Assessment & Plan (12/10/2023 9:23 AM EDT): Continue current meds Declines wanting to see pain mgmt Type 2 diabetes mellitus wit h diabetic polyneuropathy, with long-term current use of insulin 07/22/2023 Assessment & Plan (09/26/2024 7:37 AM EST): Cont lyrica OARRS reveiwed Tight glucose control Assessment & Plan (06/27/2024 7:59 AM EST): Cont lyrica OARRS reveiwed Tight glucose control Assessment & Plan (03/28/2024 8:24 PM EDT): Cont lyrica Assessment & Plan (12/10/2023 9:02 AM EDT): Stable on current meds Assessment & Plan (07/23/2023 9:44 AM EST): Check blood sugars daily, notify if <70 or >200. Take medications (pills or insulin) as directed. Monitor for s/s of hypoglycemia (sweaty, dizziness, nausea, vomiting, or shakiness). Watch for increase in thirst, urination, or appetite. Inspect feet frequently monitoring for open wounds , and also recommend yearly eye exam. Pt should attempt to remain as physically active as chronic conditions allow, as well as trying to follow a diet low in carbohydrates, and simple sugars. Coronary artery disease invo lving tejon coronary artery of tejon heart without angina pectoris 07/22/2023 Assessment & Plan (09/26/2024 7:38 AM EST): Current meds: asa, statin, plavix, zetia, angel, b jackie Assessment & Plan (06/27/2024 7:59 AM EST): Cont statin, and risk factor modification No active angina at this time Assessment & Plan (03/28/2024 8:25 PM EDT): Cont statin, and risk factor modification No active angina at this time Assessment & Plan (12/10/2023 9:03 AM EDT): No active chest pain Cont b jackie, asa, plavix, statin Assessment & Plan (07/23/2023 9:44 AM EST): No chest pain at this time Tight blood pressure and blood sugar controll Primary hypertension 07/22/2023 Assessment & Plan (09/26/2024 7:39 AM EST): Please check blood pressure daily and record DASH diet Limit caffeine Take medication as directed Contact office if chest pain, pressure, dizziness, shortness of breath, swelling legs Recommend slow position changes Current meds: b jackie, angel Assessment & Plan (06/27/2024 7:59 AM EST): Please check blood pressure daily and record DASH diet Limit caffeine Take medication as directed Contact office if chest pain, pressure, dizziness, shortness of breath, swelling legs Recommend slow position changes Assessment & Plan (03/28/2024 8:25 PM EDT): In goal range Assessment & Plan (07/23/2023 9:45 AM EST): No changes in dose of meds Recommend weightloss Major depressive disorder, single episode, mild 07/22/2023 Assessment & Plan (09/26/2024 4:57 PM EST): Current meds: trazodone, celexa, wellbutrin XL PHQ 9=1 GUA[place]KO 7=5 Assessment & Plan (03/28/2024 8:26 PM EDT): Continue current meds Assessment & Plan (07/23/2023 9:45 AM EST): Stable on current meds Mixed hyperlipidemia 07/16/2023 Assessment & Plan (09/26/2024 7:40 AM EST): On statin and zetia Check labs yearly and prn dose changes Assessment & Plan (07/13/2024 9:50 AM EST): Will add zetia 10mg in addition to his atorvastatin Recheck labs in 8 weeks Osteoarthritis of facet joint of lumbar spine Resolved Problems Problem Noted Date Diagnosed Date Resolved Date Morbid (severe) obesity due to excess calories 09/26/2024 09/26/2024 Depression 10/27/2023 03/28/2024 Tobacco dependence 07/23/2023 Assessment & Plan (06/27/2024 8:00 AM EST): The patient has been advised of the risks of continued smoking: stroke, [place], all forms of cancer, lung disease, and . Options for quitting smoking include: cold turkey, hypnosis, acupuncture, nicotine replacement meds (gum, lozenges, and patches), Buproprion, and Varenicline. At this time pt is encouraged to evaluate their goals for wanting to quit smoking, and reach out to provider when ready to start this process Assessment & Plan (03/28/2024 8:27 PM EDT): The patient has been advised of the risks of continued smoking: stroke, TX, all forms of cancer, lung disease, and . Options for quitting smoking include: cold turkey, hypnosis, acupuncture, nicotine replacement meds (gum, lozenges, and patches), Buproprion, and Varenicline. At this time pt is encouraged to evaluate their goals for wanting to quit smoking, and reach out to provider when ready to start this process Patient meets requirements for low dose CT scan for lung cancer screening: age 55-80, patient is a current smoker over 20 years. Smoking history is > or equal to 40 pack-year ([id number] years). If needed the patient is able or willing to receive treatment. The patient is not currently exhibiting any s/s of lung cancer. We have discussed the benefits as well as harms of screening, follow up testing if needed, false positive rates. We have also discussed that this type of CT scan has less radiation exposure than a traditional lung CT scan. We have also discussed that it is important to follow with annual screening for this. The patient has also been counseled on the importance of smoking cessation. Assessment & Plan (12/10/2023 9:03 AM EDT): The patient has been advised of the risks of continued smoking: stroke, [place], all forms of cancer, lung disease, and . Options for quitting smoking include: cold turkey, hypnosis, acupuncture, nicotine replacement meds (gum, lozenges, and patches), Buproprion, and Varenicline. At this time pt is encouraged to evaluate their goals for wanting to quit smoking, and reach out to provider when ready to start this process Assessment & Plan (07/23/2023 9:45 AM EST): Recommend quitting Peripheral polyneuropathy 07/22/2023 Assessment & Plan (07/23/2023 9:44 AM EST): Cont current meds Encounters Date Type Department Care Team Description 03/08/2025 [facility]ill [facility] [address] [place] [address] Lenore Abad NP Coronary artery disease involving tejon coronary artery of tejon heart without angina pectoris 02/07/2025 Refill [facility] [address] [place] [address] Lenore Abad NP Coronary artery disease involving tejon coronary artery of tejon heart without angina pectoris ; Mixed hyperlipidemia from Last 3 Months Social History Tobacco Use Types Packs/Day Years Used Date Smoking Tobacco: Every Day Cigarettes Tobacco Cessation:Ready to Q uit: Not Asked; Counseling Given: Not Answered Alcohol Use Standard Drinks/Week Comments Never 0 (1 standard drink = 0.6 oz pur e alcohol) caffine: coffee 2 cups daily Sex and Gender Information Value Date Recorded Sex Assigned at Not on file Legal Sex Male 6:40 PM EDT Gender Identity Not on file Sexual Orientation Not on file Last Filed Vital Signs Vital Sign Reading Time Taken Comments Blood Pressure 116/76 09/26/2024 4:35 PM EST Pulse 64 09/26/2024 4:35 PM EST Temperature 36.9 C (98.5 F) 09/26/2024 4:35 PM EST Respiratory Rate 20 09/26/2024 4:35 PM EST Oxygen Saturation 95% 09/26/2024 4:35 PM EST Inhaled Oxygen Concentration - - Weight 126 kg (276 lb 12.8 oz) 09/26/2024 4:35 P M EST Height 177.8 cm (5' 10 ) 09/26/2024 4:35 PM EST Body Mass Index 39.72 09/26/2024 4:35 PM EST Plan of Treatment Health Maintenance Due Date Last Done Comments CT Colonography 1965 Colonoscopy 1965 FIT 1965 FOBT 1965 Sigmoidoscopy 1965 Diabetes: Hemoglobin A1C 12/24/2024 025, 04/01/2024, 09/29/2023, Additional history exists Diabetes: Urine Protein Screening 04/01/20252 024, 02/20/2023 Colorectal Cancer Screening 11/29/2025 FIT-DNA 11/29/2025 11/29/2022 Diabetes: Retinopathy Screening 03/29/2026 03/29/2024, 12/16/2021, 09/03/2021 Influenza Vaccine Discontinued Procedures Procedure Name Priority Date/Time Associated Diagnosis Comments POCT GLYCOSYLATED HEMOGLOBIN (HGB A1C) Routine 09/26/2024 4:50 PM EST Type 2 diabetes mellitus without complication, with long-term current use of insulin (HCC) DIABETIC RETINOPATHY SCREENING - OU - BOTH EYES Routine 03/29/2024 11:12 AM EDT from Last 3 Months or Most Recently Relevant to Health Maintenance Results * (ABNORMAL) POCT glycosylated hemoglobin (Hb A1C) docked device (09/26/2024 4:50 PM EST) Hemoglobin A1C 7.6 Blood Venous blood specimen / Unknown 09/26/2024 4:50 PM EST Lenore Abad NP POINT OF CARE TEST ENTER/EDIT O RDERABLES Edited Result - Final * Diabetic Retinopathy Screening - OU - Both Eyes (03/29/2024 11:12 AM EDT) Anatomical Region Laterality Modality Head Other us Lenore Abad NP OPHTH PHOTOGRAPHY Final Result from Last 3 Months or Most Recently Relevant to Health Maintenance Insurance [employer] Care Teams Casing Man Relationship Specialty Start Date End Date Naderer, Hung, MD PCP - General Family Medicine 12/10/23 Lenore Abad NP [address] [place] [address] PCP - [facility] 08/03/24 Lenore Abad NP Nurse Practitioner Family Medicine 12/10/23 Esthela Bee DO [address] [place] [address] Referring Physician Neurology 08/16/24 Yasmeen Lewis NP [address] [place] [address] Nurse Practitioner Neurology 08/16/24
--- OUTSIDE RECORDS SUMMARY | 2025-04-28 10:38 | XMS_ITS | Encounter Summary ---
Author Organization [facility] Address [address] [place] [address] Care Team Providers Care Bicycle Racer Name Role Phone Hung Marino MD Primary Care Provider Lenore Abad SOUND TECHNICIAN Unavailable [phone] Esthela Bee DO Unavailable [phone] Yasmeen Lewis SOUND TECHNICIAN Unavailable [phone] Lenore Abad SOUND TECHNICIAN Unavailable [phone] Reason for Visit * Reason Onset Date Comments Med Refill 03/08/2025 Encounter Details Date Type Department Care Team (Late st Contact Info) Description 03/08/2025 Refill [facility] [address] [place] [address] Lenore Abad NP [address] [place] [address] Coronary artery disease involving [place] coronary artery of [place] heart without angina pectoris Social History Tobacco Use Types Packs/Day Years [...] documented as of this encounter Visit Diagnoses Diagnosis Coronary artery disease involving [place] coronary artery of [place] heart without angina pectoris documented in this encounter Care Teams Bicycle Racer Relationship Specialty Start Date End Date Hung Marino MD PCP - General Family Medicine 12/10/23 Lenore Abad NP [address] [place] [address] PCP - [facility] 08/03/24 Lenore Abad NP Nurse Practitioner Family Medicine 12/10/23 Esthela Bee DO [address] [place] [address] Referring Physician Neurology 08/16/24 Yasmeen Lewis NP [address] [place] [address] Nurse Practitioner Neurology 08/16/24 documented as of this encounter
--- OUTSIDE RECORDS SUMMARY | 2025-04-28 10:40 | XMS_ITS | CCD ---
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 Name Role Phone Lakshmipathy, Narendrana Attending Provider Unav ailable NON STAFF Primary Care Provider Unavailabl e Lakshmipathy, Narendrana Admitting Unavail able Lakshmipathy, Narendrana Attending Unavail able NON STAFF Primary Care Unavailable AICHHOLZ, SUPERVISOR EVAPORATOR LENORE Admitting Unavailable AICHHOLZ, SUPERVISOR EVAPORATOR LENORE Attending Unavailable AICHHOLZ, SUPERVISOR EVAPORATOR LENORE Primary Care Unavailable DIXON ., DR GERHARD Solorio Admitting Unavailable DIXON ., DR GERHARD Solorio Attending Unavailable AICHHOLZ, SUPERVISOR EVAPORATOR LENORE Primary Care Unavailable DIXON ., DR GERHARD Solorio Consulting Unavailable LAKSHMIPATHY ., NARENDRANATH Admitting Pati vailable LAKSHMIPATHY ., NARENDRANATH Attending Pati vailable AICHHOLZ, SUPERVISOR EVAPORATOR LENORE Primary Care Unavailable LAKSHMIPATHY ., NARENDRANATH Consulting Pati vailable LAKSHMIPATHY ., NARENDRANATH Admitting Pati vailable LAKSHMIPATHY ., NARENDRANATH Attending Pati vailable AICHHOLZ, SUPERVISOR EVAPORATOR LENORE Primary Care Unavailable GANESH .TAWNY Consulting Unavailable AICHHOLZ, SUPERVISOR EVAPORATOR LENORE Admitting Unavailable AICHHOLZ, SUPERVISOR EVAPORATOR LENORE Attending Unavailable AICHHOLZ, SUPERVISOR EVAPORATOR LENORE Primary Care Unavailable AICHHOLZ, SUPERVISOR EVAPORATOR LENORE Consulting Unavailable DANY RODRÍGUEZ Consulting Unavailable AICHHOLZ, SUPERVISOR EVAPORATOR LENORE Admitting Unavailable AICHHOLZ, SUPERVISOR EVAPORATOR LENORE Attending Unavailable AICHHOLZ, SUPERVISOR EVAPORATOR LENORE Primary Care Unavailable AICHHOLZ, SUPERVISOR EVAPORATOR LENORE Consulting Unavailable AICHHOLZ, SUPERVISOR EVAPORATOR LENORE Admitting Unavailable AICHHOLZ, SUPERVISOR EVAPORATOR LENORE Attending Unavailable AICHHOLZ, SUPERVISOR EVAPORATOR LENORE Primary Care Unavailable AICHHOLZ, SUPERVISOR EVAPORATOR LENORE Consulting Unavailable LUÍS CORTES Consulting Unavailable Hung Espinoza MD Primary Care Provider Pollo VP SALES, Lenore Unavailable Gideon Rae DO Unavailable Joshua VP SALES, Yasmeen Unavailable Pollo VP SALES, Lenore Unavailable Pollo MARTINOGRISELDA, Lenore J Primary Care Provider LENORE ABAD Attending Unavailable LENORE ABAD Attending Unavailable LENORE ABAD Attending Unavailable POLLO, LENORE Attending Unavailable GIDEON RAE Attending Unavailable HUNG ESPINOZA Referring Unavailable Dkmarj BACK UP 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-SUPERVISOR EVAPORATOR, Lenore Arnold Primary Care Provider Joshua VP SALES, Yasmeen Unavailable Allergies Allergy Classification Reported Allergen(s) Allergy Type Date of Onset Reaction(s) Facility (20 sources) Penicillins; Translations: [Penicillins] Allergy to substance 09-24-2016 [facility] (1 source) Penicillin Drug Allergy 05-20-2022 [facility] Medications Current Medications Medication Drug Class(es) Dates Sig (Normalized) Sig (Original) aspirin 81 mg delayed release oral tablet (20 sources) Platelet Aggregation Inhibitor, Nonsteroidal Anti-inflammatory Drug Start: 11-18-2024 take 1 tablet by mouth once daily Aspirin Low Dose 81 MG EC tablet Take 81 mg by mouth Daily 11/18/2024 Active Start: 11-17-2017 End: 11-15-2024 take 1 tablet by mouth once daily aspirin 81 MG EC tablet Indications: Carotid Atherosclerosis Take 1 tablet (81 mg) by mouth Daily 90 tablet 3 08/17/2024 11/15/2024 Active atorvastatin 80 mg oral tablet (20 sources) HMG-CoA Reductase Inhibitor Start: 04-06-2024 End: 01-01-2025 take 1 tablet by mouth at bedtime atorvastatin (Lipitor) 80 MG tablet Indications: Mixed hyperlipidemia Take 1 tablet (80 mg) by mouth at bedtime 90 tablet 1 10/03/2024 Active Start: 11-17-2017 End: 04-06-2024 take 1 tablet by mouth once daily atorvastatin (LIPITOR) 40 mg tablet Indications: Atherosclerosis of pechanga coronary artery of pechanga heart without angina pectoris Take 1 tablet (40 mg total) by mouth once daily. 90 tablet 3 11/17/2017 Active baclofen 10 mg oral tablet (2 sources) gamma-Aminobutyric Acid-ergic Agonist take 1 tablet by mouth every eight hours baclofen (LIORESAL) 10 mg tablet Baclofen 10 MG Oral Tablet TAKE 1 TABLET Every 8 hours Quantity: 90 Refills: 0 [place] M.D.; Active Active 60 actuat budesonide 0.16 mg/actuat / formoterol fumarate 0.0045 mg/actuat metered dose inhaler (20 sources) Corticosteroid, beta2-Adrenergic Agonist Start: End: take 2 puff(s) by inhalation in the morning budesonide-formot mati (Symbicort) 160-4.5 MCG/ACT inhaler Indications: Chronic obstructive pulmonary disease, unspecified COPD type (HCC) Inhale 2 puffs in the morning and 2 puffs before bedtime. Rinse mouth with water after use to reduce aftertaste and incidence of candidiasis. Do not swallow.. 3 each 1 10/03/2024 Active 24 hr buPROPion hydrochloride 300 mg extended release oral tablet (20 sources) Aminoketone Start: End: take 1 tablet by mouth once daily buPROPion XL (Wellbutrin XL) 300 MG 24 hr tablet Indications: Current mild episode of major depressive disorder without prior episode Take 1 tablet (300 mg) by mouth Daily Do not crush, chew, or split 90 tablet 1 09/02/2024 Active citalopram 40 mg oral tablet (20 sources) Serotonin Reuptake Inhibitor Start: End: take 1 tablet by mouth once daily citalopram (CeleXA) 40 MG tablet Indications: Current mild episode of major depressive disorder without prior episode Take 1 tablet (40 mg) by mouth Daily Take 40 mg by mouth in the morning.Take 1 tablet (40 mg) by mouth in the morning. Take 40 mg by mouth in the morning.. 90 tablet 1 10/03/2024 Active clopidogrel 75 mg oral tablet (20 sources) [id number] Platelet Inhibitor Start: 018 End: take 1 tablet by mouth once daily clopidogrel (Plavix) 75 MG tablet Indications: Coronary artery disease involving pechanga coronary artery of pechanga heart without angina pectoris (CMS/HCC) Take 1 tablet (75 mg) by mouth Daily 90 tablet 1 10/03/2024 01/01/2025 Active Continuous Blood Gluc Computer Game Programmer (FreeStyle [employer] 14 Day Moore) device (20 sources) Start: Continuous Blood Gluc Computer Game Programmer (FreeStyle Marc 14 Day Moore) device Indications: Type 2 diabetes mellitus with diabetic polyneuropathy, with long-term current use of insulin (HCC) 1 each in the morning. 8 each 1 07/23/2023 Active Start: 07-23-2023 Continuous Blo od Gluc Computer Game Programmer (FreeStyle Marc 14 Day Moore) device Indications: Type 2 diabetes mellitus with diabetic polyneuropathy, with long-term current use of insulin (CMS/HCC) 1 each in the morning. 8 each 1 07/23/2023 Active Continuous Glucose Sensor (FreeStyle Marc 14 Day Sensor) mis (20 sources) Start: 10-03-2024 End: 12-26-2024 Continuous Glucose Sensor (FreeStyle Marc 14 Day Sensor) mis Indications: Type 2 diabetes mellitus without complication, with long-term current use of insulin 1 each by Other route Daily 6 each 3 10/03/2024 12/26/2024 Active Start: 10-03-2024 End: 12-26-2024 Continuous Glucose Sensor (F reeStyle Marc 14 Day Sensor) misc Indications: Type 2 diabetes mellitus without complication, with long-term current use of insulin (CMS/HCC) 1 each by Other route Daily 6 each 3 10/03/2024 12/26/2024 Active Start: 06-27-2024 End: 10-03-2024 Continuous Glucose Sensor (F reeStyle Marc 14 Day Sensor) misc Indications: Type 2 diabetes mellitus without complication, with long-term current use of insulin (CMS/HCC) 1 each by Other route Daily 6 each 3 06/27/2024 10/03/2024 Discontinued (Reorder) Start: 06-27-2024 End: 09-26-2024 Continuous Glucose Sensor (F reeStyle Marc 14 Day Sensor) misc Indications: Type 2 diabetes mellitus without complication, with long-term current use of insulin (CMS/HCC) 1 each by Other route Daily 6 each 3 06/27/2024 09/26/2024 Active Start: 06-27-2024 End: 09-19-2024 Continuous Glucose Sensor (F reeStyle Marc 14 Day Sensor) [facility] Indications: Type 2 diabetes mellitus without complication, with long-term current use of insulin (CMS/HCC) 1 each by Other route Daily 6 each 3 06/27/2024 09/19/2024 Active Start: 06-11-2024 End: 06-27-2024 Continuous Glucose Sensor (F reeStyle Marc 14 Day Sensor) [facility] 06/11/2024 06/27/2024 Discontinued (Reorder) Start: 06-11-2024 Continuous Glu cose Sensor (FreeStyle Marc 14 Day Sensor) [facility] 06/11/2024 Active Start: 03-14-2024 End: 04-11-2024 Continuous Glucose Sensor (F reeStyle Marc 14 Day Sensor) [facility] Indications: Type 2 diabetes mellitus with diabetic polyneuropathy, with long-term current use of insulin ([facility]) 1 each by Other route Daily for 28 days 2 each 03/14/2024 04/11/2024 Active ezetimibe 10 mg oral tablet (18 sources) Dietary Cholesterol Absorption Inhibitor Start: 07-13-2024 End: 05-08-2025 take 1 tablet by mouth once daily ezetimibe (Zetia) 10 MG tablet Indications: Coronary artery disease involving pechanga coronary artery of pechanga heart without angina pectoris , Mixed hyperlipidemia Take 1 tablet (10 mg) by mouth Daily 90 tablet 02/07/2025 05/08/2025 Active gabapentin 600 mg oral tablet (2 sources) Anti-epileptic Agent Start: 06-03-2018 take 1 tablet by mouth every six hours gabapentin (NEURONTIN) 600 mg tablet Indications: Chronic low back pain, unspecified back pain laterality, with sciatica presence unspecified take 1 tablet by mouth every 6 hours 100 tablet 2 06/03/2018 Active 3 ml insulin glargine 100 unt/ml pen injector (20 sources) Insulin Analog Start: 12-14-2024 Lantus SoloSta r 100 UNIT/ML pen Inject 18 Units under the skin at bedtime 12/14/2024 Active Start: 09-26-2024 End: 01-04-2025 inject 18 [IU] by subcutaneous injection at bedtime insulin glargine (Lantus) 100 UNIT/ML injection Indications: Type 2 diabetes mellitus with diabetic polyneuropathy, with long-term current use of insulin (HCC) Inject 18 Units under the skin at bedtime 18 mL 09/26/2024 Active Start: 04-14-2024 End: 06-27-2024 Lantus SoloStar 100 UNIT/ML pen 04/14/2024 06/27/2024 Discontinued (Therapy completed) Start: 04-08-2024 End: 09-26-2024 inject 15 [IU] by subcutaneous injection at bedtime insulin glargine (Lantus) 100 UNIT/ML injection Indications: Type 2 diabetes mellitus with diabetic polyneuropathy, with long-term current use of insulin (CMS/HCC) Inject 15 Units under the skin at bedtime 15 mL 1 06/27/2024 09/26/2024 Discontinued (Reorder) Start: 10-27-2023 End: 04-08-2024 insulin glargine (Lantus) 10 0 UNIT/ML injection Indications: Type 2 diabetes mellitus with diabetic polyneuropathy, with long-term current use of insulin (CMS/HCC) 15 units once a day, 6 mL 1 10/27/2023 04/08/2024 Discontinued (Reorder) lidocaine 0.05 mg/mg medicated patch (20 sources) Antiarrhythmic, Amide Local Anesthetic Start: 11-07-2024 lidocaine (Lidoderm) 5 % patch Indications: Lumbar radiculopathy, chronic Apply 1 patch to affected area may leave on for 12 hours then remove, no more than 2 patch on at any time 60 patch 5 11/07/2024 Active Start: 12-10-2023 End: 11-07-2024 lidocaine (Lidoderm) 5 % pat ch Indications: Lumbar radiculopathy, chronic Apply 1 patch to affected area may leave on for 12 hours then remove, no more than 2 patch on at any time 60 patch 5 12/10/2023 11/07/2024 Discontinued (Reorder) lisinopril 20 mg oral tablet (20 sources) Angiotensin Converting Enzyme Inhibitor Start: 11-17-2017 End: 01-01-2025 take 1 tablet by mouth once daily in the morning lisinopril 20 MG tablet Indications: Primary hypertension Take 1 tablet (20 mg) by mouth Daily Take 20 mg by mouth in the morning. 90 tablet 1 10/03/2024 Active metaxalone 800 mg oral tablet (20 sources) Start: 03-14-2024 End: 10-30-2024 take 1 tablet by mouth every eight hours for muscle spasms metaxalone (Skelaxin) 800 MG tablet Indications: DDD (degenerative disc disease), lumbar Take 1 tablet (800 mg) by mouth every 8 (eight) hours if needed for muscle spasms Take 800 mg by mouth every 8 (eight) hours if needed for muscle spasms 270 tablet 1 08/01/2024 Active 24 hr metFORMIN hydrochloride 750 mg extended release oral tablet (20 sources) Biguanide Start: 03-14-2024 End: 01-01-2025 take 1 tablet by mouth every twenty-four hours in the morning metFORMIN XR (Glucophage-XR) 750 MG 24 hr tablet Indications: Type 2 diabetes mellitus with diabetic polyneuropathy, with long-term current use of insulin (HCC) Take 1 tablet (750 mg) by mouth in the morning and 1 tablet (750 mg) in the evening. Take with meals. 180 tablet 1 10/03/2024 Active Start: 05-07-2019 take 1 tablet by yennifer th twice daily metFORMIN (GLUCOPHAGE) 500 mg tablet Take 500 mg by mouth 2 (two) times a day. 0 05/07/2019 Active metoprolol tartrate 50 mg oral tablet (20 sources) beta-Adrenergic Jackie Start: 10-27-2023 End: 01-01-2025 take 1 tablet by mouth in the morning metoprolol tartrate (Lopressor) 50 MG tablet Indications: Coronary artery disease involving pechanga coronary artery of pechanga heart without angina pectoris , Primary hypertension Take 1 tablet (50 mg) by mouth in the morning and 1 tablet (50 mg) before bedtime. Take 50 mg by mouth in the morning and 50 mg before bedtime.. 180 tablet 1 10/03/2024 Active Start: 11-17-2017 take 1 tablet by mouth once me toprolol tartrate (LOPRESSOR) 50 mg tablet Indications: Atherosclerosis of pechanga coronary artery of pechanga heart without angina pectoris Take 1 tablet (50 mg total) by mouth every 12 (twelve) hours. 180 tablet 3 11/17/2017 Active Misc. Devices (Quad Cane) misc (20 sources) Misc. Devices (Q uad Cane) misc Active morphine sulfate 15 mg extended release oral tablet (2 sources) Opioid Agonist Start: take 1 tablet by mouth once morphine (MS CONTIN) 15 mg 12 hr tablet Indications: Chronic low back pain, unspecified back pain laterality, with sciatica presence unspecified Take 1 tablet (15 mg total) by mouth every 12 (twelve) hours. Max Daily Amount: 30 mg 60 tablet 06/28/2018 Active OXcarbazepine 150 mg oral tablet (2 sources) Anti-epileptic Agent take 1 tablet by mouth four times daily OXcarbazepine (TRILEPTAL) 150 mg tablet OXcarbazepine 150 MG Oral Tablet TAKE 1 TABLET 4 TIMES DAILY Refills: 0 Active Active oxyCODONE hydrochloride 10 mg oral tablet (2 sources) Opioid Agonist Start: take 1 tablet by mouth every eight hours oxyCODONE (ROXICODONE) 10 MG tablet immediate release tablet Indications: Chronic low back pain, unspecified back pain laterality, with sciatica presence unspecified Take 1 tablet (10 mg total) by mouth every 8 (eight) hours. Max Daily Amount: 30 mg 90 tablet 06/28/2018 Active predniSONE 20 mg oral tablet (2 sources) Start: predniSONE (DELTASONE) 20 mg tablet Take two tablets by mouth for first 5 days, take one tablet by mouth for following 5 days. 15 tablet 01/26/2018 Active pregabalin 150 mg oral capsule (20 sources) Start: End: take 1 capsule by mouth every eight hours pregabalin (Lyrica) 150 MG capsule Indications: Type 2 diabetes mellitus with diabetic polyneuropathy, with long-term current use of insulin (HCC) , Lumbar radiculopathy, chronic , Painful diabetic neuropathy (HCC) Take 1 capsule (150 mg) by mouth every 8 (eight) hours 90 capsule 3 10/03/2024 Active rOPINIRole 0.25 mg oral tablet (2 sources) Nonergot Dopamine Agonist take 1 tablet by mouth three times daily rOPINIRole (REQUIP) 0.25 mg tablet ROPINIRole HCl - 0.25 MG Oral Tablet TAKE 1 TABLET 3 TIMES DAILY. Refills: 0 Active Active sildenafil 50 mg oral tablet (2 sources) Phosphodiesterase 5 Inhibitor Start: 020 take 1 tablet by mouth once daily as needed sildenafiL (VIAGRA) 50 mg tablet Take 1 tablet (50 mg total) by mouth daily as needed for erectile dysfunction. 10 tablet 3 12/12/2019 Active traZODone hydrochloride 150 mg oral tablet (20 sources) Serotonin Reuptake Inhibitor Start: 024 End: 025 take 1 tablet by mouth at bedtime traZODone (Desyrel) 150 MG tablet Indications: Other insomnia Take 1 tablet (150 mg) by mouth at bedtime Take 150 mg by mouth at bedtime 90 tablet 1 10/03/2024 Active varenicline (2 sources) Partial Cholinergic Nicotinic Agonist Start: 019 varenicline (CHANTIX SUNIL) 0.5 mg (11)- 1 mg (42) tablet Take 0.5 mg one daily on days 1-3 and 0.5 mg twice daily on days 4-7. Then 1 mg twice daily for a total of 12 weeks. 53 tablet 3 06/09/2019 Active Completed/Discontinued Medications Medication Drug Class(es) Dates Sig (Normalized) Sig (Original) [id number] 200 actuat albuterol 0.09 mg/actuat metered dose inhaler (3 sources) beta2-Adrenergic Agonist Start: 10-27-2023 End: 03-28-2024 take 2 puff(s) by inhalation every four hours for wheezing albuterol HFA 90 mcg/act inhaler Indications: Simple chronic bronchitis (CMS/HCC) Inhale 2 puffs every 4 (four) hours if needed for wheezing 18 g 1 10/27/2023 03/28/2024 Discontinued Problems Active Problems Problem Classification Problem Date Documented Da te Episodic/Chronic Acute myocardial infarction (20 sources) Myocardial infarction; Translations: [Acute myocardial infarction, unspecified] Onset: 10-27-2023 10-27-2023 Chronic Chronic obstructive pulmonary disease and bronchiectasis (20 sources) Chronic obstructive lung disease; Translations: [Chronic obstructive pulmonary disease, unspecified] Onset: 10-27-2023 10-27-2023 Chronic Congestive heart failure; nonhypertensive (2 sources) Congestive heart failure; Translations: [Heart failure, unspecified] 06-07-2019 Chronic Coronary atherosclerosis and other heart disease (20 sources) Coronary arteriosclerosis; Translations: [Atherosclerotic heart disease of pechanga coronary artery without angina pectoris] Onset: 07-22-2023 07-22-2023 Chronic Diabetes mellitus with complications (20 sources) Polyneuropathy due to type 2 diabetes mellitus; Translations: [Type 2 diabetes mellitus with diabetic polyneuropathy] Onset: 07-22-2023 07-22-2023 Chronic Diabetes mellitus without complication (20 sources) Type 2 diabetes mellitus without complications; Translations: [Type 2 diabetes mellitus] Onset: 01-31-2022 Chronic Disorders of lipid metabolism (20 sources) Mixed hyperlipidemia; Translations: [Mixed hyperlipidemia] Onset: 07-16-2023 07-16-2023 Chronic Essential hypertension (20 sources) Essential hypertension; Translations: [Essential (primary) hypertension] Onset: 07-22-2023 07-22-2023 Chronic Mood disorders (20 sources) Mild major depression, single episode; Translations: [Major depressive disorder, single episode, mild] Onset: 07-22-2023 Resolved: 03-28-2024 03-09-2024 Chronic Osteoarthritis (2 sources) Arthritis; Translations: [Unspecified osteoarthritis, unspecified site] 06-07-2019 Chronic Other male genital disorders (20 sources) Male erectile dysfunction, unspecified; Translations: [Impotence of organic origin] Onset: 10-27-2023 10-27-2023 Chronic Other nervous system disorders (1 source) Other chronic pain; Translations: [OTHER CHRONIC PAIN] Onset: 10-05-2022 Chronic Other nutritional; endocrine; and metabolic disorders (1 source) Obesity, unspecified; Translations: [OBESITY UNSPECIFIED] Onset: 05-23-2022 Chronic Other nutritional; endocrine; and metabolic disorders (20 sources) Severe obesity; Translations: [Class 3 severe obesity due to excess calories with body mass index (BMI) of 40.0 to 44.9 in adult] Onset: 07-23-2023 07-23-2023 Chronic Other nutritional; endocrine; and metabolic disorders (2 sources) Obesity; Translations: [Obesity, unspecified] 06-07-2019 Chronic Other nutritional; endocrine; and metabolic disorders (9 sources) Body mass index 30+ - obesity; Translations: [Body mass index (BMI) 38.0-38.9, adult] Onset: 09-26-2024 09-26-2024 Chronic Paralysis (4 sources) Right hemiparesis; Translations: [Hemiplegia, unspecified affecting right dominant side] 08-15-2024 Chronic Parkinson`s disease (20 sources) Parkinson's disease; Translations: [Parkinson's disease without dyskinesia, without mention of fluctuations] Onset: 10-27-2023 03-09-2024 Chronic Residual codes; unclassified (6 sources) Insomnia; Translations: [Other insomnia] 05-16-2024 Chronic Residual codes; unclassified (2 sources) Obstructive sleep apnea syndrome; Translations: [Obstructive sleep apnea (adult) (pediatric)] 08-15-2024 Chronic Residual codes; unclassified (2 sources) Cognitive perceptual pattern; Translations: [Unspecified symptoms and signs involving general sensations and perceptions] 08-15-2024 Episodic Spondylosis; intervertebral disc disorders; other back problems (20 sources) Spondylosis without myelopathy or radiculopathy, lumbar region; Translations: [Other intervertebral disc degeneration, lumbar region] Onset: 08-14-2016 Chronic Substance-related disorders (20 sources) Tobacco dependence syndrome; Translations: [Nicotine dependence, unspecified, uncomplicated] Onset: 07-23-2023 Resolved: 09-26-2024 05-16-2024 Chronic Unclassified (2 sources) LOW BACK PAIN, UNSPECIFIED; Translations: [LOW BACK PAIN, UNSPECIFIED] Onset: 10-05-2022 Past or Other Problems Problem Classification Problem Date Documented Date Episodic/Chronic Fluid and electrolyte disorders (20 sources) Hyperkalemia; Translations: [Hyperkalemia] Onset: 10-27-2023 10-27-2023 Episodic Other connective tissue disease (1 source) Pain in right leg; Translations: [PAIN IN RIGHT LEG] Onset: 05-23-2022 Episodic Other connective tissue disease (20 sources) Other symptoms and signs involving the musculoskeletal system; Translations: [Other musculoskeletal symptoms referable to limbs] Onset: 06-27-2024 06-27-2024 Episodic Other liver diseases (4 sources) Abnormal levels of other serum enzymes; Translations: [ABNORMAL LEVELS OTHER SERUM ENZYMES] Onset: 02-26-2022 Episodic Other liver diseases (20 sources) Alkaline phosphatase raised; Translations: [Abnormal levels of other serum enzymes] Onset: 10-27-2023 10-27-2023 Episodic Other nervous system disorders (20 sources) Polyneuropathy; Translations: [Polyneuropathy, unspecified] Onset: 07-22-2023 Resolved: 06-27-2024 07-22-2023 Chronic Other nutritional; endocrine; and metabolic disorders (9 sources) Obesity caused by energy imbalance; Translations: [Morbid (severe) obesity due to excess calories] Onset: 09-26-2024 Resolved: 09-26-2024 09-26-2024 Chronic Other screening for suspected conditions (not mental disorders or infectious disease) (20 sources) Patient encounter status; Translations: [Encounter for screening for malignant neoplasm of prostate] Onset: 10-27-2023 04-06-2024 Episodic Residual codes; unclassified (20 sources) Insomnia; Translations: [Insomnia, unspecified] Onset: 10-27-2023 10-27-2023 Episodic Spondylosis; intervertebral disc disorders; other back problems (20 sources) Radiculopathy, lumbar region; Translations: [Intervertebral disc disorders with radiculopathy, lumbar region] Onset: 08-14-2016 Episodic Unclassified (1 source) LOW BACK PAIN, UNSPECIFIED; Translations: [LOW BACK PAIN, UNSPECIFIED] Onset: 09-30-2022 Unclassified (4 sources) Weakness of both lower extremities 06-27-2024 Results Test Name Value Interpretation Reference Range Facility ALL GAMMA GLUTAMYL TRANSPEPT IDASEon 11-01-2024 Amylase [Catalytic activity/Vol] 21 U/L 15 - 85 [facility] Albumin [Mass/Vol] 3.3 g/dL Low 3.4 - 5.0 g/dL [facility] ALBUMIN GLOBULIN RATIO 0.8 [facility] ALP [Catalytic activity/Vol] 138 U/L High 46 - 116 U/L [facility] ALT [Catalytic activity/Vol] 27 U/L 16 - 63 U/L [facility] AST [Catalytic activity/Vol] 12 U/L Low 15 - 37 U/L [facility] Bilirubin [Mass/Vol] 0.3 mg/dL 0.2 - 1 .0 mg/dL [facility] Bilirubin.indirect [Mass/Vol] 0.1 mg/dL 0.0 - 0.2 mg/dL [facility] Globulin (S) [Mass/Vol] 3.9 g/dL [facility] Interpretation and review of laboratory results Abnormal [facility] Protein [Mass/Vol] 7.2 g/dL 6.4 - 8.2 g/dL NO [facility] No Panel Informationon 11-01 [facility] HbA1c (Bld) [Mass fraction]o n 09-26-2024 Interpretation and review of laboratory results Abnormal [facility] - Hematology and Cell countson 09-26-2024 HbA1c (Bld) [Mass fraction] 7.60 % [facility] ALL LIPID PROFILE (FASTING)o n 09-14-2024 CHOL HDL RATIO 3 [facility] Comment on above: 3.3 - 4.4 LOW RISK 4.4 - 7.1 AVERAGE RISK 7.1 - 11.0 MODERATE RISK >11.0 HIGH RISK Cholesterol [Mass/Vol] 137 mg/dL NINF - 200 mg/dL [facility] Cholesterol in HDL [Mass/Vol] 45 mg/dL 40 - 60 mg/dL [facility] Comment on above: > or =60 mg/dl - LOW CARDIOVASCULAR RISK <40 mg/dl - HIGH CARDIOVASCULAR RISK Magnesium [Mass/Vol] 75 mg/dL [facility] Comment on above: <100 mg/dl OPTIMAL 100-129 mg/dl NEAR OR ABOVE OPTIMAL 130-159 mg/dl BORDERLINE HIGH 160-189 mg/dl HIGH >190 mg/dl VERY HIGH Magnesium [Mass/Vol] 17 mg/dL [facility] Triglyceride [Mass/Vol] 85 mg/dL NINF - 150 mg/dL [facility] CMP (CMP) (FOR REMOTE FH C USE)on 09-14-2024 Albumin [Mass/Vol] 3.7 g/dL 3.4 - 5.0 g/dL NO [facility] ALBUMIN GLOBULIN RATIO 0.8 [facility] ALP [Catalytic activity/Vol] 152 U/L High 46 - 116 U/L [facility] ALT [Catalytic activity/Vol] 28 U/L 16 - 63 U/L [facility] Anion gap [Moles/Vol] 13.5 mmol/L NO [facility] AST [Catalytic activity/Vol] 17 U/L 15 - 37 U/L [facility] Bilirubin [Mass/Vol] 0.3 mg/dL 0.2 - 1 .0 mg/dL [facility] Calcium [Mass/Vol] 9.5 mg/dL 8.5 - 10. 1 mg/dL [facility] Chloride [Moles/Vol] 99 mmol/L 98 - 10 7 mmol/L [facility] CO2 [Moles/Vol] 29.9 mmol/L 21.0 - 32.0 mmol/L [facility] Creatinine [Mass/Vol] 1.25 mg/dL 0.70 - 1.30 mg/dL [facility] GFR/1.73 sq M.predicted CKD-EPI (S/P/Bld) [Vol rate/Area] >60 >=60 mL/min/1.73m 2 [facility] Globulin (S) [Mass/Vol] 4.4 g/dL [facility] Glucose [Mass/Vol] 145 mg/dL High 74 - 106 mg/dL NO [facility] Interpretation and review of laboratory results Abnormal [facility] Potassium [Moles/Vol] 4.4 mmol/L 3.5 - 5.1 mmol/L [facility] Protein [Mass/Vol] 8.1 g/dL 6.4 - 8.2 g/dL NO [facility] Sodium [Moles/Vol] 138 mmol/L 136 - 145 mmol/L [facility] EGFR-NON AF SAMOAN 59 Low >=60 mL/min/1.73m 2 [facility] Urea nitrogen [Mass/Vol] 11 mg/dL 7.0 - 18.0 mg/dL [facility] Urea nitrogen/Creatinine [Mass ratio] 8.8 mg/mg [facility] No Panel Informationon 09-14 [facility] ALL BASIC METABOLIC PANELon 07-12-2024 Anion gap [Moles/Vol] 13.4 mmol/L NO [facility] Calcium [Mass/Vol] 9.2 mg/dL 8.5 - 10. 1 mg/dL [facility] Chloride [Moles/Vol] 101 mmol/L 98 - 10 7 mmol/L [facility] CO2 [Moles/Vol] 27.4 mmol/L 21.0 - 32.0 mmol/L [facility] Creatinine [Mass/Vol] 1.41 mg/dL High 0.70 - 1.30 mg/dL [facility] GFR/1.73 sq M.predicted CKD-EPI (S/P/Bld) [Vol rate/Area] >60 >=60 mL/min/1.73m 2 [facility] Glucose [Mass/Vol] 173 mg/dL High 74 - 106 mg/dL NO [facility] Potassium [Moles/Vol] 4.8 mmol/L 3.5 - 5.1 mmol/L [facility] Sodium [Moles/Vol] 137 mmol/L 136 - 145 mmol/L [facility] EGFR-NON AF SAMOAN 51 Low >=60 mL/min/1.73m 2 [facility] Urea nitrogen [Mass/Vol] 12 mg/dL 7.0 - 18.0 mg/dL [facility] Urea nitrogen/Creatinine [Mass ratio] 8.5 mg/mg [facility] ALL LIPID PROFILE (FASTING)o n 07-12-2024 CHOL HDL RATIO 4.7 [facility] Comment on above: 3.3 - 4.4 LOW RISK 4.4 - 7.1 AVERAGE RISK 7.1 - 11.0 MODERATE RISK >11.0 HIGH RISK Cholesterol [Mass/Vol] 189 mg/dL NINF - 200 mg/dL [facility] Cholesterol in HDL [Mass/Vol] 40 mg/dL 40 - 60 mg/dL [facility] Comment on above: > or =60 mg/dl - LOW CARDIOVASCULAR RISK <40 mg/dl - HIGH CARDIOVASCULAR RISK Magnesium [Mass/Vol] 127.2 mg/dL [facility] Comment on above: <100 mg/dl OPTIMAL 100-129 mg/dl NEAR OR ABOVE OPTIMAL 130-159 mg/dl BORDERLINE HIGH 160-189 mg/dl HIGH >190 mg/dl VERY HIGH Magnesium [Mass/Vol] 21.8 mg/dL [facility] Triglyceride [Mass/Vol] 109 mg/dL NINF - 150 mg/dL [facility] 07-12-2024 ALT [Catalytic activity/Vol] 24 U/L 16 - 63 U/L [facility] Gage 07-12-2024 AST [Catalytic activity/Vol] 11 U/L Low 15 - 37 U/L [facility] No Panel Informationon 07-12 Interpretation and review of laboratory results Abnormal [facility] ALL CBC WITH AUTO DIFFon BASOPHILS ABSOLUTE AUTO 0.1 [facility] Basophils/100 WBC (Bld) 0.5 % 0.2 - 2.0 % [facility] Eosinophils/100 WBC (Bld) 1.8 % 0.9 - 7.0 % [facility] Erythrocyte distribution width (RBC) [Ratio] 12.5 % 11.0 - 15.0 % [facility] Hematocrit (Bld) [Volume fraction] 44.6 % 42.0 - 54.0 % [facility] Hemoglobin (Bld) [Mass/Vol] 15.2 g/dL 14.0 - 18.0 g/dL [facility] IMMATURE GRANULOCYTES ABS AUTO 0.05 High [facility] Immature granulocytes/100 WBC (Bld) 0.4 % 0.0 - 0.5 % [facility] Interpretation and review of laboratory results Abnormal [facility] LYMPHOCYTES ABSOLUTE AUTO 2.4 [facility] Lymphocytes/100 WBC (Bld) 17.7 % Low 20.5 - 60.0 % [facility] MCH (RBC) [Entitic mass] 31.1 pg 25.9 - 34.0 pg [facility] MCHC (RBC) [Mass/Vol] 34.1 g/dL 29.9 - 35.2 g/dL [facility] MCV (RBC) [Entitic vol] 91.4 fL 80.0 - 94.0 fL [facility] MONOCYTES ABSOLUTE AUTO 0.8 [facility] Monocytes/100 WBC (Bld) 5.5 % 1.7 - 12.0 % [facility] NEUTROPHILS ABSOLUTE AUTO 10.2 High [facility] Neutrophils/100 WBC (Bld) 74.1 % 43.0 - 75.0 % [facility] Platelet mean volume (Bld) [Entitic vol] 9.3 fL Low 9.5 - 13.5 fL [facility] EO # 0.3 [facility] PLT 262 [facility] RBC 4.88 [facility] WBC 13.7 High [facility] XR pre/post mri xrayon 11-05 XR pre/post mri xray [facility] [place] [address] MRI Report Signed Patient: Jose Delacruz MR#: [id number] 44 : 1965 Acct:[id number] Age/Sex: 57 / M ADM Date: 11/05/22 Loc: Room: Type: [facility] Attending Dr: Maria Teresa Mcneil Copies to: Jimmy Mcneil Ordering Provider: Jimmy Mcneil Date of Service: 11/05/22 MR/MR lumbar spine wo con: LUMBAR RADICULOPATHY ([id number]) XR/XR pre/post mri xray: LUMBAR RADIC MRI [...] Gareth Armenta M.D.11/05/2022 3:43 PM Dictation Location: [place] [address] Transcribed By: [facility] 11/05/22 1543 Dictated By: Gareth Armenta DO 11/05/22 1537 Signed By: 11/05/22 1543 Normal [facility] US SINGLE QUAD RT UPPERon US [...] by: LUÍS CORTES Date: 2022-02-26 17:17 Normal [facility] XR LSPINE 2_3 VIEWSon 2021 XR [...] by: DANY RODRÍGUEZ Date: 2022-02-05 09:40 Normal [facility] GLYCOHEMOGLOBIN A1Con 2021 ADA RECOMMENDATION SEE BELOW Normal [facility] Comment on above: Result Comment: ADA RECOMMENDED LIMIT 4.0 - 6.0 ADA THERAPEUTIC TARGET < 7.0 ACTION SUGGESTED > 7.0 Performed By: #### A 1C #### [facility] [address] [place] [address] [address] Josue Fierro Glucose [Mass/Vol] 148 mg/dL Normal [facility] Comment on above: Performed By: #### A 1C #### [facility] [address] [place] [address] Dr. Josue Fierro HbA1c (Bld) [Mass fraction] 6.8 % Critically high 4.5-6.2 [facility] Comment on above: Performed By: #### A 1C #### [facility] [address] [place] [address] Dr. Josue Fierro PROF 14(COMP METB)on 022 Albumin [Mass/Vol] 3.4 g/dL Normal 3.4-5.0 [facility] Comment on above: Performed By: #### C MP #### [facility] [address] [place] [address] Dr. Josue Fierro Albumin/Globulin [Mass ratio] 0.9 {ratio} Normal [facility] Comment on above: Performed By: #### C MP #### [facility] [address] [place] [address] Dr. Josue Fierro ALP [Catalytic activity/Vol] 133 U/L Critically high 46-116 [facility] Comment on above: Performed By: #### C MP #### [facility] [address] [place] [address] Dr. Josue Fierro ALT [Catalytic activity/Vol] 28 U/L Normal 16-63 [facility] Comment on above: Performed By: #### C MP #### [facility] [address] [place] [address] Dr. Josue Fierro Anion gap [Moles/Vol] 12.3 mmol/L Normal [facility] Comment on above: Performed By: #### C MP #### [facility] [address] [place] [address] Dr. Josue Fierro AST [Catalytic activity/Vol] 15 U/L Normal 15-37 [facility] Comment on above: Performed By: #### C MP #### [facility] [address] [place] [address] Dr. Josue Fierro Bilirubin [Mass/Vol] 0.2 mg/dL Normal 0.2-1.0 [facility] Comment on above: Performed By: #### C MP #### [facility] [address] [address] [address] Josue Fierro Calcium [Mass/Vol] 9.1 mg/dL Normal 8.5-10.1 [facility] Comment on above: Performed By: #### C MP #### [facility] [address] [place] [address] Dr. Josue Fierro Chloride [Moles/Vol] 100 mmol/L Normal 98-107 [facility] Comment on above: Performed By: #### C MP #### [facility] [address] [place] [address] Dr. Josue Fierro CO2 [Moles/Vol] 28.2 mmol/L Normal 21.0-32.0 [facility] Comment on above: Performed By: #### C MP #### [facility] [address] [place] [address] Dr. Josue Fierro Creatinine [Mass/Vol] 1.10 mg/dL Normal 0.70-1.30 [facility] Comment on above: Performed By: #### C MP #### [facility] [address] [place] [address] Dr. Josue Fierro EGFR-AF SAMOAN >60 Normal >=60 [facility] Comment on above: Performed By: #### C MP #### [facility] [address] [place] [address] Dr. Josue Fierro EGFR-NON AF SAMOAN >60 Normal >=60 [facility] Comment on above: Performed By: #### C MP #### [facility] [address] [place] [address] Dr. Josue Fierro Globulin (S) [Mass/Vol] 3.8 g/dL Normal [facility] Comment on above: Performed By: #### C MP #### [facility] [address] [place] [address] Dr. Josue Fierro Glucose [Mass/Vol] 153 mg/dL Critically high 74-106 [facility] Comment on above: Performed By: #### C MP #### [facility] [address] [place] [address] Dr. Josue Fierro Potassium [Moles/Vol] 5.5 mmol/L Critically high 3.5-5.1 [facility] Comment on above: Performed By: #### C MP #### [facility] [address] [address] [address] Josue Fierro Protein [Mass/Vol] 7.2 g/dL Normal 6.4-8.2 [facility] Comment on above: Performed By: #### C MP #### [facility] [address] [address] [address] Josue Fierro Sodium [Moles/Vol] 135 mmol/L Critically low 136-145 [facility] Comment on above: Performed By: #### C MP #### [facility] [address] [place] [address] Dr. Josue Fierro Urea nitrogen [Mass/Vol] 11.0 mg/dL Normal 7.0-18.0 [facility] Comment on above: Performed By: #### C MP #### [facility] [address] [place] [address] Dr. Josue Fierro Urea nitrogen/Creatinine [Mass ratio] 10.0 mg/mg Normal [facility] Comment on above: Performed By: #### C MP #### [facility] [address] [place] [address] Dr. Josue Fierro Vital Signs Date Time Vital Sign Value Performing Clinician Baldo jacinto 09-26-2024 16:35-0500 Body height 177.8 cm Lenore Abad VP SALES Work Phone: [facility] 09-26-2024 16:35-0500 Body mass index (BMI) [Ratio] 39.72 kg/m2 Lenore Abad VP SAL[employer] Work Phone: [facility] 09-26-2024 16:35-0500 Body temperature 98.49 [degF] Lenore Abad VP SAL[employer] Work Phone: [facility] 09-26-2024 16:35-0500 Body weight 125.56 kg Lenore Abad VP SAL[employer] Work Phone: [facility] 09-26-2024 16:35-0500 Diastolic blood pressure 76 mm[Hg] Lenore Aabd VP SALES Work Phone: [facility] 09-26-2024 16:35-0500 Heart rate 64 /min Lenore Abad VP SAL[employer] Work Phone: [facility] 09-26-2024 16:35-0500 Respiratory rate 20 /min Lenore Abad VP SAL[employer] Work Phone: [facility] 09-26-2024 16:35-0500 SaO2% (BldA) [Mass fraction] 95 % Lenore Abad [employer] SAL[employer] Work Phone: [facility] 09-26-2024 16:35-0500 Systolic blood pressure 116 mm[Hg] Lenore Abad VP SAL[employer] Work Phone: [facility] 08-15-2024 16:44-0500 Body height 177.8 cm Gideon Rohit DO Work Phone: [facility] 08-15-2024 16:44-0500 Body mass index (BMI) [Ratio] 39.03 kg/m2 Gideon Rohit DO Work Phone: [facility] 08-15-2024 16:44-0500 Body weight 123.38 kg Gideon Rohit DO Work Phone: [facility] 08-15-2024 16:44-0500 Diastolic blood pressure 82 mm[Hg] Gideon Rohit DO Work Phone: [facility] 08-15-2024 16:44-0500 Heart rate 60 /min Gideon Rohit DO Work Phone: [facility] 08-15-2024 16:44-0500 SaO2% (BldA) [Mass fraction] 96 % Gideon Rohit DO Work Phone: [facility] 08-15-2024 16:44-0500 Systolic blood pressure 122 mm[Hg] Gideon Rohit DO Work Phone: [facility] 06-27-2024 17:40-0500 Body height 180.3 cm Lenore Abad VP SALES Work Phone: [facility] 06-27-2024 17:40-0500 Body mass index (BMI) [Ratio] 39.25 kg/m2 Lenore Abad VP SAL[employer] Work Phone: [facility] 06-27-2024 17:40-0500 Body temperature 96.49 [degF] Lenore Rootmagaly VP SALES Work Phone: [facility] 06-27-2024 17:40-0500 Body weight 127.64 kg Lenore Abad VP SALES Work Phone: [facility] 06-27-2024 17:40-0500 Diastolic blood pressure 70 mm[Hg] Lenore Rootmagaly VP SALES Work Phone: [facility] 06-27-2024 17:40-0500 Heart rate 68 /min Lenore Rootmagaly VP SALES Work Phone: [facility] 06-27-2024 17:40-0500 Respiratory rate 19 /min Lenore Abad VP SALES Work Phone: [facility] 06-27-2024 17:40-0500 SaO2% (BldA) [Mass fraction] 95 % Lenore Tabormarj VP SALES Work Phone: [facility] 06-27-2024 17:40-0500 Systolic blood pressure 110 mm[Hg] Lenore Rootmagaly VP SALES Work Phone: [facility] 03-28-2024 19:28-0400 Body height 180.3 cm Lenore Abad VP SALES Work Phone: [facility] 03-28-2024 19:28-0400 Body mass index (BMI) [Ratio] 40.56 kg/m2 Lenore Rootmagaly VP SALES Work Phone: [facility] 03-28-2024 19:28-0400 Body temperature 97.7 [degF] Lenore Rootmagaly VP SALES Work Phone: [facility] 03-28-2024 19:28-0400 Body weight 131.91 kg Lenore Tabormarj VP SALES Work Phone: [facility] 03-28-2024 19:28-0400 Diastolic blood pressure 70 mm[Hg] Lenore Pollo VP SALES Work Phone: [facility] 03-28-2024 19:28-0400 Heart rate 66 /min Lenore Pollo VP SALES Work Phone: [facility] 03-28-2024 19:28-0400 Respiratory rate 18 /min Lenoreursula Tabormarj VP SALES Work Phone: [facility] 03-28-2024 19:28-0400 SaO2% (BldA) [Mass fraction] 98 % Lenore Pollo VP SALES Work Phone: [facility] 03-28-2024 19:28-0400 Systolic blood pressure 106 mm[Hg] Lenore Brandonz VP SALES Work Phone: [facility] 11-05-2022 11:12-0400 Diastolic blood pressure 75 mm[Hg] [facility] 11-05-2022 11:12-0400 Heart rate 72 /min [facility] 11-05-2022 11:12-0400 Respiratory rate 16 /min [facility] 11-05-2022 11:12-0400 SaO2% (BldA) [Mass fraction] 97 % [facility] 11-05-2022 11:12-0400 Systolic blood pressure 142 mm[Hg] [facility] 11-05-2022 11:08-0400 Body height 180.34 cm [facility] 11-05-2022 11:08-0400 Body weight 138.34 kg [facility] Encounters Encounter Date Encounter Type Care Provider Facility Start: 02-07-2025 End: 02-07-2025 Refill Lenore Pollo VP SALES Work Phone: [facility] Comment on above: Coronary artery dise ase involving pechanga coronary artery of pechanga heart without angina pectoris ; Mixed hyperlipidemia Start: 11-07-2024 End: 11-07-2024 Refill Lenore Brandonz VP SALES Work Phone: [facility] Comment on above: Lumbar radiculopathy , chronic Start: 11-01-2024 End: 11-01-2024 Clinisync Result Encounter Lenore Pollo VP SALES Work Phone: [facility] External Department Unsolicited Start: 11-01-2024 End: 11-01-2024 Clinisync Result Encounter Lenoreursula Abad VP SALES Work Phone: [facility] External Department Unsolicited Start: 10-03-2024 End: 10-03-2024 Refill Lenore Brandonz VP SALES Work Phone: [facility] Comment on above: Mixed hyperlipidemia (CMS/HCC); Chronic obstructive pulmonary disease, unspecified COPD type (CMS/HCC); Current mild episode of major depressive disorder without prior episode ([facility]) ([facility]); Coronary artery disease involving pechanga coronary artery of pechanga heart without angina pectoris ([facility]); Type 2 diabetes mellitus without complication, with long-term current use of insulin ([facility]); Primary hypertension ([facility]); Type 2 diabetes mellitus with diabetic polyneuropathy, with long-term current use of insulin ([facility]); Other insomnia; Lumbar radiculopathy, chronic; Painful diabetic neuropathy ([facility]/HCC) Start: 09-28-2024 End: 10-03-2024 Telephone encounter [facility] Comment on above: neuro referrral Start: 09-26-2024 End: 09-26-2024 ambulatory LENORE AICHHOLZ Not Available Start: 09-26-2024 End: 09-26-2024 Office outpatient visit 25 minutes Lenore Abad VP SALES Work Phone: [facility] Comment on above: Type 2 diabetes sondra itus with diabetic polyneuropathy, with long-term current use of insulin (CMS/HCC) (Primary Dx); Morbid (severe) obesity due to excess calories (CMS/HCC); Mixed hyperlipidemia (CMS/HCC); Body mass index (BMI) 38.0-38.9, adult; Chronic obstructive pulmonary disease, unspecified (CMS/HCC); Weakness of both lower extremities; Coronary artery disease involving pechanga coronary artery of pechanga heart without angina pectoris (CMS/HCC); Primary hypertension ([facility]/HCC); Class 3 severe obesity due to excess calories with serious comorbidity and body mass index (BMI) of 40.0 to 44.9 in adult ([facility]/HCC); Type 2 diabetes mellitus without complication, with long-term current use of insulin ([facility]); Cigarette nicotine dependence without complication; Elevated alkaline phosphatase level; Major depressive disorder, single episode, mild (HCC) ([facility]); Other insomnia Start: 09-26-2024 End: 09-26-2024 Bamboo flowsheet Lenore Pollo VP SALES Work Phone: [facility] Start: 09-26-2024 End: 09-26-2024 Bamboo flowsheet Lenore Pollo VP SALES Work Phone: [facility] Start: 09-14-2024 End: 09-14-2024 Clinisync Result Encounter Lenore Pollo VP SALES Work Phone: [facility] External Department Unsolicited Start: 09-14-2024 End: 09-14-2024 Clinisync Result Encounter Lenore Pollo VP SALES Work Phone: [facility] External Department Unsolicited Start: 09-13-2024 End: 09-13-2024 Refill Lenore Brandonz VP SALES Work Phone: [facility] Comment on above: Coronary artery dise ase involving pechanga coronary artery of pechanga heart without angina pectoris ([facility]/HCC); Mixed hyperlipidemia ([facility]/HCC) Start: 09-02-2024 End: 09-02-2024 Refill Lenore Aickatiholz VP SALES Work Phone: [facility] Comment on above: Lumbar radiculopathy , chronic (Primary Dx); Type 2 diabetes mellitus with diabetic polyneuropathy, with long-term current use of insulin (CMS/HCC); Painful diabetic neuropathy (CMS/HCC); Current mild episode of major depressive disorder without prior episode (HCC) (CMS/HCC) Start: 08-17-2024 End: 08-17-2024 Refill Lenore Abad NP Work Phone: [facility] Comment on above: Coronary artery dise ase involving pechanga coronary artery of pechanga heart without angina pectoris (CMS/HCC) (Primary Dx); Primary hypertension (CMS/HCC); Type 2 diabetes mellitus without complication, with long-term current use of insulin (CMS/HCC) Start: 08-15-2024 End: 08-15-2024 ambulatory GIDEON RAE Not Available Start: 08-15-2024 End: 08-15-2024 Office outpatient new 60 minutes Gideon Rae DO Work Phone: [facility] Comment on above: Right hemiparesis ([place]/HCC) (Primary Dx); Weakness of both lower extremities; Sensory deficit, right; TONYA (obstructive sleep apnea); Diabetic peripheral neuropathy (CMS/HCC) Start: 08-15-2024 End: 08-15-2024 Bamboo flowsheet Gideon Rohit DO Work Phone: [facility] Start: 08-15-2024 End: 08-15-2024 Bamboo flowsheet Gideon Rohit DO Work Phone: [facility] Start: 08-01-2024 End: 08-01-2024 Refill Lenore Abad NP Work Phone: [facility] Comment on above: DDD (degenerative di sc disease), lumbar Start: 07-13-2024 End: 07-13-2024 Refill Lenore Abad VP SALES Work Phone: [facility] Comment on above: Coronary artery dise ase involving pechanga coronary artery of pechanga heart without angina pectoris (CMS/HCC) (Primary Dx); Mixed hyperlipidemia (CMS/HCC) Start: 07-12-2024 End: 07-12-2024 Clinisync Result Encounter Lenore Abad NP Work Phone: [facility] External Department Unsolicited Start: 07-12-2024 End: 07-12-2024 Clinisync Result Encounter Lenore Abad VP SALES Work Phone: [facility] External Department Unsolicited Start: 06-27-2024 End: 06-27-2024 ambulatory LENORE ABAD Not Available Start: 06-27-2024 End: 06-27-2024 Office outpatient visit 25 minutes Lenore Abad VP SALES Work Phone: [facility] Comment on above: Type 2 diabetes sondra itus with diabetic polyneuropathy, with long-term current use of insulin (CMS/HCC) (Primary Dx); Parkinson's disease without dyskinesia, without mention of fluctuations (CMS/HCC); Primary hypertension (CMS/HCC); Coronary artery disease involving pechanga coronary artery of pechanga heart without angina pectoris (CMS/HCC); Type 2 diabetes mellitus without complication, with long-term current use of insulin ([facility]/HCC); Class 3 severe obesity due to excess calories with serious comorbidity and body mass index (BMI) of 40.0 to 44.9 in adult (CMS/HCC); Tobacco dependence; Mixed hyperlipidemia (CMS/HCC); Chronic obstructive pulmonary disease, unspecified COPD type (CMS/HCC); Current mild episode of major depressive disorder without prior episode (HCC) (CMS/HCC); Other insomnia; Weakness of both lower extremities Start: 06-27-2024 End: 06-27-2024 Bamboo flowsheet Lenore Abad VP SALES Work Phone: [facility] Start: 06-27-2024 End: 06-27-2024 Bamboo flowsheet Lenore Pollo VP SALES Work Phone: [facility] Start: 05-16-2024 End: 05-16-2024 Refill Lenore Pollo VP SALES Work Phone: [facility] Comment on above: Other insomnia (Prim lv Dx); Tobacco dependence Start: 05-02-2024 End: 05-02-2024 Refill Lenore Pollo VP SALES Work Phone: [facility] Comment on above: Coronary artery dise ase involving pechanga coronary artery of pechanga heart without angina pectoris ([facility]/HCC) (Primary Dx); Current mild episode of major depressive disorder without prior episode ([facility]) ([facility]) Start: 04-25-2024 End: 04-25-2024 Refill Lenore Aichholz VP SALES Work Phone: [facility] Comment on above: Type 2 diabetes sondra itus with diabetic polyneuropathy, with long-term current use of insulin ([facility]) Start: 04-08-2024 End: 04-08-2024 Refill Lenore Aichholz VP SALES Work Phone: [facility] Comment on above: Chronic obstructive pulmonary disease, unspecified COPD type ([facility]); Current mild episode of major depressive disorder without prior episode (HCC) ([facility]); Type 2 diabetes mellitus with diabetic polyneuropathy, with long-term current use of insulin ([facility]); Primary hypertension ([facility]); Coronary artery disease involving pechanga coronary artery of pechanga heart without angina pectoris ([facility]) Start: 04-06-2024 End: 04-06-2024 Refill Lenore Aichholz VP SALES Work Phone: [facility] Comment on above: Mixed hyperlipidemia ([facility]) (Primary Dx); Hyperkalemia Type 2 diabetes sondra itus with diabetic polyneuropathy, with long-term current use of insulin ([facility]) Start: 04-01-2024 End: 04-01-2024 Clinisync Result Encounter Lenore Aichholz VP SALES Work Phone: [facility] External Department Unsolicited Start: 04-01-2024 End: 04-01-2024 Clinisync Result Encounter Lenore Aichholz VP SALES Work Phone: [facility] External Department Unsolicited Start: 03-31-2024 End: 03-31-2024 Telephone encounter Lenore Aichholz VP SALES Work Phone: [facility] Start: 03-28-2024 End: 03-28-2024 ambulatory LENORE AICHHOLZ Not Available Start: 03-28-2024 End: 03-28-2024 Office outpatient visit 25 minutes Lenore Abad VP SALES Work Phone: [facility] Comment on above: Type 2 diabetes sondra itus without complication, with long-term current use of insulin ([facility]/HCC) (Primary Dx); Major depressive disorder, single episode, mild (HCC) ([facility]); Parkinson's disease without dyskinesia, without mention of fluctuations ([facility]); Type 2 diabetes mellitus with diabetic polyneuropathy, with long-term current use of insulin ([facility]); Chronic obstructive pulmonary disease, unspecified COPD type ([facility]); Coronary artery disease involving pechanga coronary artery of pechanga heart without angina pectoris ([facility]); Primary hypertension ([facility]); Class 3 severe obesity due to excess calories with serious comorbidity and body mass index (BMI) of 40.0 to 44.9 in adult ([facility]); Tobacco dependence; Cigarette nicotine dependence without complication Start: 03-28-2024 End: 03-28-2024 Bamboo flowsheet Lenore Abad VP SALES Work Phone: [facility] Start: 03-28-2024 End: 03-28-2024 Bamboo flowsheet Lenore Pollo VP SALES Work Phone: [facility] Start: 03-28-2024 End: 03-28-2024 Telephone encounter Lenore Abad VP SALES Work Phone: [facility] Start: 12-10-2023 End: 12-10-2023 ambulatory LENORE DKHHOLZ Not Available Start: 11-04-2023 Telephone encounter [facility] Work Phone: [facility] Start: 12-11-2022 End: 12-12-2022 ambulatory NARENDRANATH LAKSHMIPATHY . Facility: Start: 11-05-2022 End: 11-05-2022 ambulatory Narendrana Lakshmipathy Facility:[facility] Start: 11-05-2022 End: 11-05-2022 ambulatory NON STAFF [facility] Work Phone: Start: 11-05-2022 End: 11-05-2022 Patient encounter procedure Maria Teresa Mcneil [facility] [place] Work Phone: Start: 09-30-2022 End: 10-01-2022 ambulatory JIMMY MCNEIL . Facility:[facility] Start: 05-20-2022 End: 05-21-[address] GERHARD DIXON . Facility:[facility] Start: 02-26-2022 End: 02-28-2022 ambulatory SUPERVISOR EVAPORATOR LENORE POLLO Facility:[facility] Start: 02-26-2022 End: 02-27-2022 ambulatory SUPERVISOR EVAPORATOR LENORE DKHHOLZ Facility:[facility] Start: 02-04-2022 End: 02-05-2022 ambulatory SUPERVISOR EVAPORATOR LENORE AICHHOLZ Facility:[facility] Start: 01-31-2022 End: 02-01-2022 ambulatory SUPERVISOR EVAPORATOR LENORE AICHHOLZ Facility:[facility] Procedures Date Procedure Procedure Detail Performing Clinician Start: 11-01-2024 ALL GAMMA GLUTAMYL TRANSPEPTIDASE Lenore Pollo VP SALES Work Phone: Start: 11-01-2024 [facility] LIVER PANEL Lenore Ursula braun VP SALES Work Phone: Start: 09-26-2024 Hemoglobin glycosylated a1c Lenore Pollo VP SALES Work Phone: Start: 09-14-2024 ALL LIPID PROFILE (FASTING) Lenore Pollo VP SALES Work Phone: Start: 09-14-2024 [facility] CMP (CMP) (FOR [facility] USE) Lenore Brandonz VP SALES Work Phone: Start: 07-12-2024 ALL BASIC METABOLIC PANEL Lenore Pollo VP SALES Work Phone: Start: 07-12-2024 ALL LIPID PROFILE (FASTING) Lenore Brandonz VP SALES Work Phone: Start: 07-12-2024 [facility] ALT Lenoreursula gregory VP SALES Work Phone: Start: 07-12-2024 [facility] AST Lenore gregory VP SALES Work Phone: Start: 04-01-2024 ALL CBC WITH AUTO DIFF Lenore Abad VP SALES Work Phone: Start: 11-05-2022 XR pre/post mri xray Na renmaribel Fernandamipathy Start: 11-05-2022 MR lumbar spine wo con Narendrana Lakshmipathy Plan of Treatment Date Care Activity Detail Author Start: 03-29-2026 Glaucoma screening Diabetes: R etinopathy Screening [facility] Start: 11-29-2025 Screening for malign ant neoplasm of colon [facility] Start: 04-01-2025 Urine screening for protein Diabetes: Urine Protein Screening [facility] Start: 12-28-2024 End: 12-28-2024 Patient encounter procedure 12/28/2024 5:00 PM EDT Office Visit [facility] [address] [place] [address] Lenore Abad, [place] [address] [place] [address] [facility] Start: 12-24-2024 Hemoglobin A1c measurement Chelo betes: Hemoglobin A1C [facility] Start: 11-01-2024 End: 11-01-2024 Patient encounter procedure 11/01/2024 4:30 PM EDT Office Visit JEROD ROMERO [address] [place] [address] Gideon Rae DO [address] [place] [address] [facility] Start: 10-24-2024 End: 09-26-2025 Gamma glutamyl transferase [Enzymatic activity/volume] in Serum or Plasma Gamma GT Lab Routine Elevated alkaline phosphatase level Expected: 10/24/2024 (Approximate), Expires: 09/26/2025 [facility] Comment on above: Expected: 10/24/2024 (Approximate), Expires: 09/26/2025 Start: 10-24-2024 End: 09-26-2025 Hepatic function 2000 panel - Serum or Plasma Hepatic function panel Lab Routine Elevated alkaline phosphatase level Expected: 10/24/2024 (Approximate), Expires: 09/26/2025 [facility] meets Work Phone: Comment on above: Expected: 10/24/2024 (Approximate), Expires: 09/26/2025 Start: 09-26-2024 End: 09-26-2024 Patient encounter procedure 09/26/2024 4:30 PM EST Office Visit [facility] [address] [place] [id number] Lenore Abad, VP SALES [address] [place] [id number] [facility] Start: 09-13-2024 End: 07-13-2025 Comprehensive metabolic 2000 panel - Serum or Plasma Comprehensive metabolic panel Lab Routine Mixed hyperlipidemia (CMS/HCC) Expected: 09/13/2024 (Approximate), Expires: 07/13/2025 [facility] meets Work Phone: Comment on above: Expected: 09/13/2024 (Approximate), Expires: 07/13/2025 Start: 09-13-2024 End: 07-13-2025 Lipid 1996 panel - Serum or Plasma Lipid panel Lab Routine Mixed hyperlipidemia (CMS/HCC) Expected: 09/13/2024 (Approximate), Expires: 07/13/2025 [facility] Comment on above: Expected: 09/13/2024 (Approximate), Expires: 07/13/2025 Start: 08-15-2024 End: 08-15-2024 Patient encounter procedure 08/15/2024 4:30 PM EST Office Visit [facility] [address] [address] [place] [address] Gideon Rae DO [address] [place], [place] [id number] [facility] [address] Start: 08-15-2024 End: 08-15-2025 MR Brain WO contrast MR brain wo contrast Imaging Routine Right hemiparesis ([facility]/HCC) Expected: 08/15/2024, Expires: 08/15/2025 [facility] Work Phone: Comment on above: Expected: 08/15/2024 , Expires: 08/15/2025 Start: 07-02-2024 Hemoglobin A1c measurement Chelo betes: Hemoglobin A1C [facility] Start: 06-27-2024 End: 06-27-2024 Patient encounter procedure 06/27/2024 5:30 PM EST Office Visit [facility] [address] [place] [phone] Lenore Abad, [place] [address] [place] [phone] [facility] Start: 06-27-2024 End: 06-27-2025 Hemoglobin A1c/Hemoglobin.total in Blood Hemoglobin A1c Lab Routine Type 2 diabetes mellitus without complication, with long-term current use of insulin ([facility]) Expected: 06/27/2024 (Approximate), Expires: 06/27/2025 [facility] Work Phone: Comment on above: Expected: 06/27/2024 (Approximate), Expires: 06/27/2025 Start: 04-20-2024 End: 04-06-2025 Basic metabolic 1998 panel - Serum or Plasma Basic metabolic panel Lab Routine Hyperkalemia Expected: 04/20/2024 (Approximate), Expires: 04/06/2025 [facility] Work Phone: Comment on above: Expected: 04/20/2024 (Approximate), Expires: 04/06/2025 Start: 04-06-2024 End: 04-06-2025 Alanine aminotransferase [Enzymatic activity/volume] in Serum or Plasma ALT Lab Routine Mixed hyperlipidemia ([facility]/HCC) Expected: 04/06/2024 (Approximate), Expires: 04/06/2025 [facility] Comment on above: Expected: 04/06/2024 (Approximate), Expires: 04/06/2025 Start: 04-06-2024 End: 04-06-2025 Aspartate aminotransferase [Enzymatic activity/volume] in Serum or Plasma AST Lab Routine Mixed hyperlipidemia (CMS/HCC) Expected: 04/06/2024 (Approximate), Expires: 04/06/2025 [facility] Comment on above: Expected: 04/06/2024 (Approximate), Expires: 04/06/2025 Start: 04-06-2024 End: 04-06-2025 Lipid 1996 panel - Serum or Plasma Lipid panel Lab Routine Mixed hyperlipidemia ([facility]/HCC) Expected: 04/06/2024 (Approximate), Expires: 04/06/2025 [facility] Comment on above: Expected: 04/06/2024 (Approximate), Expires: 04/06/2025 Start: 04-03-2024 Influenza vaccination [facility] Start: 03-28-2024 End: 03-28-2025 CT Chest for screening WO contrast CT lung screening low dose Imaging Routine Tobacco dependence Cigarette nicotine dependence without complication Expected: 03/28/2024 (Approximate), Expires: 03/28/2025 [facility] Work Phone: Comment on above: Expected: 03/28/2024 (Approximate), Expires: 03/28/2025 Start: 02-21-2024 Urine screening for protein Diabetes: Urine Protein Screening [facility] Start: 12-28-2023 Hemoglobin A1c measurement Chelo betes: Hemoglobin A1C [facility] Start: 09-03-2023 Glaucoma screening Diabetes: R etinopathy Screening [facility] Start: 2015 Administration of varicella zoster vaccine Zoster (Shingles) Vaccine (1 of 2) [facility] Start: 1984 DTaP,Tdap and Td Vac cines (1 - Tdap) DTaP,Tdap and Td Vaccines (1 - Tdap) [facility] Start: 1983 Adult BMI Screening Adult BMI Screen ing [facility] Start: 1977 Depression Screening Depression Scre ening [facility] Start: 1977 Tobacco Screening Tobacco Screening [facility] Start: 1965 Screening for malign ant neoplasm of colon [facility] Payers Date Payer Category Payer Self-pay 2022 Medicaid HMO [employer] [id number] 2017 Medicaid [id number] 2017 Private Health Insurance [employer] [facility] [id number] 2017 Unknown [employer] [facility] MARK[employer] PLAN [id number] 2017-Present [address] [place] [address] [id number] 1965 Unknown [id number] [id number]. 59 1965 Unknown [id number] [id number]. 59 1965 Unknown [id number] [id number]. 593 1965 Unknown [id number] [id number]. 593 1965 Unknown [id number] [id number]. 593 1965 Unknown [id number] [id number]. 593 1965 Unknown [id number] [id number]. 593 1965 Unknown [id number] [id number]. 1259 1965 Unknown [id number] [id number]. 1259 1965 Unknown [id number] [id number]. 1259 1965 Unknown [id number] [id number]. 1259 1965 Unknown [id number] [id number]. 1259 1959 Medicaid [id number] 1959 Unknown [id number] 1959 Unknown [id number] Unknown [id number]. 531 Social History Date Type Detail Facility Tobacco smoking stat [facility] Unknown if ever smoked [facility] Work Phone: Start: 1965 Sex Assigned At Male F [facility] Start: 07-23-2023 End: 08-15-2024 Tobacco smoking status LAIS Smokes tobacco daily [facility] History of tobacco use Cigarette Smoker [facility] Start: 03-28-2024 End: 09-26-2024 Alcoholic beverage intake Lifetime non-drinker (finding) [facility] Start: 03-28-2024 End: 09-26-2024 History of Social function [facility] Start: 03-28-2024 End: 09-26-2024 Tobacco use panel [facility] Start: 12-10-2023 Alcohol Comment caffine: coffe e 2 cups daily [facility] Start: 1965 Sex assigned at Not on file [facility] Start: 06-09-2019 Tobacco use and exposure Smokeless tobacco non-user [facility] Start: 06-09-2019 Alcohol intake Ex-drinker (finding) [facility] Childcare Unknown [facility] Start: 03-08-2015 Sex Male (finding) [facility] Medical Equipment Procedure Code Equipment Code Equipment Origin al Text Equipment Identifier Dates [id number] Start: 03-21-2024 End: 06-29-2024 Clinical Notes 05-20-2022 to 09-28-2024 Telephone Encounter - Yareli Martinez - 09/28/2024 2:31 PM ESTTelephone Encounter - Beryl Lincoln - 09/28/2024 2:31 PM ESTTelephone Encounter - Waed Jamison - 09/28/2024 2:31 PM EST Note Date & Type Note Facility 09-28-2024 Miscellaneous Notes Received new patient referral. Please call patient to schedule a new patient appointment for Weakness of both lower extremities *[place] IS THIS DUE TO AN ACCIDENT? IS THIS WORKER'S COMP? PLEASE VERIFY IF THIS IS WORKERS COMP AND DOCUMENT (We do not accept any new workers comp cases) WHAT INSURANCE? HAVE YOU EVER BEEN SEEN BY A NEUROLOGIST BEFORE? 1st attempt- left voicemail Received Referral from : Lenore Abad, BACK UP 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-SUPERVISOR EVAPORATOR Dx: Weakness of both lower extremities Referred to: 2nd Attempt - Left VM Called patient to schedule appt in [place]. documented in this encounter [facility] 09-28-2024 Telephone encounter Note Received new patient referral. Please call patient to schedule a new patient appointment for Weakness of both lower extremities *[place] IS THIS DUE TO AN ACCIDENT? IS THIS WORKER'S COMP? PLEASE VERIFY IF THIS IS WORKERS COMP AND DOCUMENT (We do not accept any new workers comp cases) WHAT INSURANCE? HAVE YOU EVER BEEN SEEN BY A NEUROLOGIST BEFORE? [facility] 09-28-2024 Telephone encounter Note 1st attempt- left voicemail Received Referral from : Lenore Abad, GUNNER-GRISELDA Dx: Weakness of both lower extremities Referred to: [facility] 09-28-2024 Telephone encounter Note 2nd Attempt - Left VM Called patient to schedule appt in [place]. [facility] 09-26-2024 History of Presen t illness Narrative Associated Problem(s): Insomnia Continue with trazodone Images from the original note were not included. Jose Delacruz is a 59 y.o. male presents with chief complaint of Diabetes HPI: Blood sugar range is 99-180, most of the time above 150 Diabetes He presents for his follow-up diabetic visit. He has type 2 diabetes mellitus. His disease course has been stable. Pertinent negatives for hypoglycemia include no dizziness, nervousness/anxiousness, seizures or tremors. Associated symptoms include fatigue, foot paresthesias, polydipsia and weakness. Pertinent negatives for diabetes include no chest pain, no polyphagia, no polyuria and no visual change. There are no hypoglycemic complications. Symptoms are stable. Diabetic complications include a CVA, heart disease and peripheral neuropathy. Risk factors for coronary artery disease include diabetes mellitus, dyslipidemia, hypertension, male sex, obesity, sedentary lifestyle and tobacco exposure. Current diabetic treatment includes oral agent (monotherapy) and insulin injections. He is compliant with treatment all of the time. He never participates in exercise. An ANGEL inhibitor/angiotensin II receptor jackie is being taken. 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 Hypertension This is a chronic problem. The problem is unchanged. The problem is controlled. Associated symptoms include anxiety. Pertinent negatives include no chest pain, palpitations, peripheral edema or shortness of breath. There are no associated agents to hypertension. Risk factors for coronary artery disease include diabetes mellitus, dyslipidemia, male gender, obesity, sedentary lifestyle and smoking/tobacco exposure. Past treatments include ANGEL inhibitors and beta blockers. The current treatment provides significant improvement. There are no compliance problems. Hypertensive end-organ damage includes CAD/OR and CVA. Anxiety Presents for follow-up visit. Symptoms include irritability. Patient reports no chest pain, compulsions, decreased concentration, depressed mood, dizziness, dry mouth, excessive worry, insomnia, muscle tension, nervous/anxious behavior, palpitations, shortness of breath or suicidal ideas. Symptoms occur occasionally. The severity of symptoms is mild. The patient sleeps 10 hours per night. Nighttime awakenings: several. Compliance with medications is 76-100%. Depression Visit Type: follow-up Patient presents with the following symptoms: irritability. Patient is not experiencing: anhedonia, compulsions, decreased concentration, depressed mood, dry mouth, excessive worry, feelings of hopelessness, feelings of worthlessness, insomnia, muscle tension, nervousness/anxiety, palpitations, shortness of breath, suicidal ideas, suicidal planning and thoughts of . Frequency of symptoms: most days Sleep per night: 10 hours Sleep quality: fair Nighttime awakenings: several Compliance with medications: 76-100% SUBJECTIVE: MEDICATIONS: Current Outpatient Medications Medication Instructions aspirin 81 mg, Oral, Daily atorvastatin (LIPITOR) 80 mg, Oral, Nightly budesonide-formoterol (Symbicort) 160-4.5 MCG/ACT inhaler 2 puffs, Inhalation, 2 times daily RT, Rinse mouth with water after use to reduce aftertaste and incidence of candidiasis. Do not swallow. buPROPion XL (WELLBUTRIN XL) 300 mg, Oral, Daily, Do not crush, chew, or split citalopram (CELEXA) 40 mg, Oral, Daily, Take 40 mg by mouth in the morning.Take 1 tablet (40 mg) by mouth in the morning. Take 40 mg by mouth in the morning.. clopidogrel (PLAVIX) 75 mg, Oral, Daily Continuous Blood Gluc Computer Game Programmer (FreeStyle Marc 14 Day Moore) device 1 each, Does not apply, Daily Continuous Glucose Sensor (FreeStyle Marc 14 Day Sensor) misc 1 each, Other, Daily ezetimibe (ZETIA) 10 mg, Oral, Daily insulin glargine (LANTUS) 18 Units, Subcutaneous, Nightly lidocaine (Lidoderm) 5 % patch Apply 1 patch to affected area may leave on for 12 hours then remove, no more than 2 patch on at any time lisinopril 20 mg, Oral, Daily, Take 20 mg by mouth in the morning. metaxalone (SKELAXIN) 800 mg, Oral, Every 8 hours PRN, Take 800 mg by mouth every 8 (eight) hours if needed for muscle spasms metFORMIN XR (GLUCOPHAGE-XR) 750 mg, Oral, 2 times daily with meals metoprolol tartrate (LOPRESSOR) 50 mg, Oral, 2 times daily, Take 50 mg by mouth in the morning and 50 mg before bedtime. Misc. Devices (Quad Cane) misc No dose, route, or frequency recorded. pregabalin (LYRICA) 150 mg, Oral, Every 8 hours traZODone (DESYREL) 150 mg, Oral, Nightly, Take 150 mg by mouth at bedtime ALLERGIES: Allergies Allergen Reactions Penicillins REVIEW OF SYMPTOMS: Review of Systems Constitutional: Positive for fatigue and irritability. Negative for activity change, appetite change and unexpected weight change. HENT: Negative for ear pain, nosebleeds, sneezing, trouble swallowing and voice change. Eyes: Negative for pain, discharge and visual disturbance. Respiratory: Negative for apnea, chest tightness, shortness of breath and wheezing. Cardiovascular: Negative for chest pain, palpitations and leg swelling. Gastrointestinal: Negative for abdominal distention, blood in stool, constipation and diarrhea. Genitourinary: Negative for decreased urine volume, difficulty urinating, dysuria and hematuria. Musculoskeletal: Positive for arthralgias, back pain and gait problem. Skin: Negative for color change. Neurological: Positive for weakness. Negative for dizziness, tremors and seizures. Psychiatric/Behavioral: Positive for depression. Negative for agitation, decreased concentration, hallucinations, self-injury and suicidal ideas. The patient is not nervous/anxious and does not have insomnia. Hematological: Negative for adenopathy. Does not bruise/bleed easily. Endocrine: Positive for polydipsia. Negative for cold intolerance, heat intolerance, polyphagia and polyuria. Allergic/Immunologic: Negative for environmental allergies and food allergies. PAST MEDICAL HISTORY Past Medical History: Diagnosis Date Chronic back pain Class 3 severe obesity due to excess calories with body mass index (BMI) of 40.0 to 44.9 in adult ([facility]) 07/23/2023 COPD (chronic obstructive pulmonary disease) ([facility] [place] 10/27/2023 Coronary artery disease involving pechanga coronary artery of pechanga heart without angina pectoris ([facility] [place]) 07/22/2023 DDD (degenerative disc disease), lumbar 07/23/2023 Depression ([facility] [place]) 10/27/2023 Elevated alkaline phosphatase level 10/27/2023 Erectile dysfunction 10/27/2023 Hyperkalemia 10/27/2023 Insomnia 10/27/2023 Lumbar radiculopathy, chronic 10/27/2023 Mixed hyperlipidemia ([facility] [place]) 07/16/2023 Myocardial infarct ([facility] [place] 10/27/2023 Painful diabetic neuropathy ([facility] [place] 10/27/2023 Parkinsons ([facility] [place]) 10/27/2023 Tobacco dependence 07/23/2023 Type 2 diabetes mellitus ([facility] [place]) 10/27/2023 Type 2 diabetes mellitus with diabetic polyneuropathy, with long-term current use of insulin ([facility] [place]) 07/22/2023 History reviewed. No pertinent surgical history. family history is not on file. OBJECTIVE: Visit Vitals BP 116/76 (BP Location: Right arm, Patient Position: Sitting, BP Cuff Size: Adult long) Pulse 64 Temp 98.5 F (Temporal) Resp 20 Ht 5' 10 Wt 276 lb 12.8 oz SpO2 95% BMI 39.72 kg/m Smoking Status Every Day BSA 2.49 m Physical Exam Vitals and nursing note reviewed. Constitutional: General: He is not in acute distress. Appearance: Normal appearance. He is obese. He is not ill-appearing, toxic-appearing or diaphoretic. HENT: Head: Normocephalic. Right Ear: External ear normal. Left Ear: External ear normal. Nose: Nose normal. Mouth/Throat: Mouth: Mucous membranes are moist. Pharynx: Oropharynx is clear. Eyes: Extraocular Movements: Extraocular movements intact. Conjunctiva/sclera: Conjunctivae normal. Neck: Vascular: No carotid bruit. Cardiovascular: Rate and Rhythm: Normal rate and regular rhythm. Pulses: Normal pulses. Heart sounds: Normal heart sounds. Pulmonary: Effort: Pulmonary effort is normal. Breath sounds: Normal breath sounds. Abdominal: General: Bowel sounds are normal. There is no distension. Palpations: Abdomen is soft. There is no mass. Tenderness: There is no abdominal tenderness. There is no guarding or rebound. Musculoskeletal: Cervical back: Neck supple. Right lower leg: No edema. Left lower leg: No edema. Comments: Walks with cane, forward flexed posture Skin: General: Skin is warm and dry. Capillary Refill: Capillary refill takes 2 to 3 seconds. Neurological: General: No focal deficit present. Mental Status: He is alert. Psychiatric: Mood and Affect: Mood normal. Behavior: Behavior normal. Thought Content: Thought content normal. Judgment: Judgment normal. ASSESSMENT AND PLAN: No follow-ups on file. Problem List Items Addressed This Visit Mixed hyperlipidemia (CMS/HCC) On statin and zetia Check labs yearly and prn dose changes Type 2 diabetes mellitus with diabetic polyneuropathy, with long-term current use of insulin (CMS/HCC) - Primary Cont lyrica OARRS reveiwed Tight glucose control Relevant Medications insulin glargine (Lantus) 100 UNIT/ML injection Coronary artery disease involving pechanga coronary artery of pechanga heart without angina pectoris (CMS/HCC) Current meds: asa, statin, plavix, zetia, angel, b jackie Primary hypertension (CMS/HCC) Please check blood pressure daily and record DASH diet Limit caffeine Take medication as directed Contact office if chest pain, pressure, dizziness, shortness of breath, swelling legs Recommend slow position changes Current meds: b jackie, angel Major depressive disorder, single episode, mild (HCC) (CMS/HCC) Current meds: trazodone, celexa, wellbutrin XL PHQ 9=1 GUANAKO 7=5 Class 3 severe obesity due to excess calories with body mass index (BMI) of 40.0 to 44.9 in adult (CMS/HCC) Discussed with patient their BMI (actual, verses recommended). We have also discussed lifestyle modifications: attempts to perform physical activity as chronic conditions allow, also to monitor dietary intake: increasing protein/fruits/veggies and lowering carb intake (unless contraindicated). Limit sodas, juices, and sugary drinks. Has lost 5 pounds since 06/26 Insomnia Continue with trazodone Chronic obstructive pulmonary disease, unspecified (CMS/HCC) Current meds: symbicort Type 2 diabetes mellitus (CMS/HCC) Check blood sugars daily, notify if <70 [...] metformin, asa, statin, angel A1c 7.6% 09/26/24 Relevant Orders POCT glycosylated hemoglobin (Hb A1C) docked device (Completed) Elevated alkaline phosphatase level Recent lab sl elevation Relevant Orders Hepatic function panel Gamma GT Cigarette nicotine dependence without complication The patient has been advised of the risks of continued smoking: stroke, OR, all forms of cancer, lung disease, and . Options for quitting smoking include: cold turkey, hypnosis, acupuncture, nicotine replacement meds (gum, lozenges, and patches), Buproprion, and Varenicline. At this time pt is encouraged to evaluate their goals for wanting to quit smoking, and reach out to provider when ready to start this process Weakness of both lower extremities Neurology does not believe parkinson's They have ordered an MRI brain and also considering EMG But suspect more related to DN Continue with neurology Wants a new neurologist referral did not care for the one he saw Will refer to lori gilliland Relevant Orders Ambulatory referral to Neurology RESOLVED: Morbid (severe) obesity due to excess calories ([facility]) Body mass index (BMI) 38.0-38.9, adult Associated Problem(s): Major depressive disorder, single episode, mild (HCC) ([facility]) Current meds: trazodone, celexa, wellbutrin XL PHQ 9=1 GUANAKO 7=5 Associated Problem(s): Mixed hyperlipidemia (CMS/HCC) On statin and zetia Check labs yearly and prn dose changes Associated Problem(s): Elevated alkaline phosphatase level Recent lab sl elevation Associated Problem(s): Cigarette nicotine dependence without complication The patient has been advised of the risks of continued smoking: stroke, OR, all forms of cancer, lung disease, and . Options for quitting smoking include: cold turkey, hypnosis, acupuncture, nicotine replacement meds (gum, lozenges, and patches), Buproprion, and Varenicline. At this time pt is encouraged to evaluate their goals for wanting to quit smoking, and reach out to provider when ready to start this process Associated Problem(s): Type 2 diabetes mellitus (CMS/HCC) Check blood sugars daily, notify if <70 [...] metformin, asa, statin, angel A1c 7.6% 09/26/24 Associated Problem(s): Class 3 severe obesity due to excess calories with body mass index (BMI) of 40.0 to 44.9 in adult ([facility]) Discussed with patient their BMI (actual, verses recommended). We have also discussed lifestyle modifications: attempts to perform physical activity as chronic conditions allow, also to monitor dietary intake: increasing protein/fruits/veggies and lowering carb intake (unless contraindicated). Limit sodas, juices, and sugary drinks. Has lost 5 pounds since 06/26 Associated Problem(s): Primary hypertension ([facility]) Please check blood pressure daily and record DASH diet Limit caffeine Take medication as directed Contact office if chest pain, pressure, dizziness, shortness of breath, swelling legs Recommend slow position changes Current meds: b jackie, angel Associated Problem(s): Coronary artery disease involving pechanga coronary artery of pechanga heart without angina pectoris ([facility]) Current meds: asa, statin, plavix, zetia, angel, b jackie Associated Problem(s): Chronic obstructive pulmonary disease, unspecified ([facility]) Current meds: symbicort Associated Problem(s): Weakness of both lower extremities Neurology does not believe parkinson's They have ordered an MRI brain and also considering EMG But suspect more related to DN Continue with neurology Wants a new neurologist referral did not care for the one he saw Will refer to lori gilliland Associated Problem(s): Type 2 diabetes mellitus with diabetic polyneuropathy, with long-term current use of insulin ([facility]) Cont cabrera MARTINI reveiwed Tight glucose control documented in this encounter [facility] 09-26-2024 Instructions Lenore Abad NP - 09/26/2024 4:30 PM EST We are going to increase insulin to 18 units daily New referral to Neurology in [place], Dr. Bennett Elevated liver test called Alk Phos level, we will recheck lab in 4 weeks order given to pt to have drawn arount 10/24/24 documented in this encounter [facility] 08-15-2024 History of Presen t illness Narrative Images from the original note were not included. Chief Complaint Patient presents with Tremors Subjective Jose Delacruz, 59 y.o., male being seen in Neurology at the request of Dr. Espinoza. He was a previous patient of Dr. Laine Bernardo. He was seeing him for back pain and Park. Dz. He is not seeing pain management now. He was seeing pain management. HPI Concern for Parkinson's Disease, weakness of both lower extremities - labs in EP[facility]; referral received from Lenore Abad NP The patient states that he was diagnosed with Parkinson's in 2009. He has tremors in his whole right side. Worse in his right hand. He has issues with balance and fell last week. He walks with a walker. If he cannot get his walker into a small space he will use a cane. He drops things with his right hand. He states that the tremor is worse when anxious or fatigued. The tremor is Intermittent. He states some days are worse and others are better. He has shuffling gait. He has positional lightheadedness. He has a grandma and grandpa that had parkinson's. He is not on any Parkinson's medications. He thinks he was on some in the past but it was not continued. He is not exercising. He is up only minimally. He is smoking a pack a day. He is on Lyrica, skelaxin, He is on ASA + Plavix for OR Past Medical History: Diagnosis Date Chronic back pain Class 3 severe obesity due to excess calories with body mass index (BMI) of 40.0 to 44.9 in adult ([facility] [place]) 07/23/2023 COPD (chronic obstructive pulmonary disease) ([facility] [place] 10/27/2023 Coronary artery disease involving pechanga coronary artery of pechanga heart without angina pectoris ([facility] [place]) 07/22/2023 DDD (degenerative disc disease), lumbar 07/23/2023 Depression ([facility] [place]) 10/27/2023 Elevated alkaline phosphatase level 10/27/2023 Erectile dysfunction 10/27/2023 Hyperkalemia 10/27/2023 Insomnia 10/27/2023 Lumbar radiculopathy, chronic 10/27/2023 Mixed hyperlipidemia ([facility] [place]) 07/16/2023 Myocardial infarct ([facility] [place] 10/27/2023 Painful diabetic neuropathy ([facility] [place] 10/27/2023 Parkinsons ([facility] [place] 10/27/2023 Tobacco dependence 07/23/2023 Type 2 diabetes mellitus ([facility] [place] 10/27/2023 Type 2 diabetes mellitus with diabetic polyneuropathy, with long-term current use of insulin ([facility] [place]) 07/22/2023 History reviewed. No pertinent surgical history. No family history on file. Social History Tobacco Use Smoking status: Every Day Current packs/day: 1.00 Types: Cigarettes Smokeless tobacco: Not on file Substance Use Topics Alcohol use: Never Comment: caffine: coffee 2 cups daily Allergies: Penicillins General: No fever or chills HEENT: No nasal congestion or runny nose Pulmonary: No shortness of breath or cough Cardiovascular: No chest pain or palpitations GI: No nausea or vomiting : No dysuria or hematuria Musculoskeletal: No new aches or pains or muscle weakness Infectious: no recurrent fevers or infections Dermatologic: No rashes or skin lesions Neurologic: No new headaches or dizziness Vitals: 08/15/24 1644 BP: 122/82 Pulse: 60 SpO2: 96% Body mass index is 39.03 kg/m . weight: 272 lb Neurologic exam: General: obese, cooperative, pleasant Mental status: Awake, alert to person, place and time. Recent and remote memory are intact. Attention and concentration are normal. Fund of knowledge is appropriate for level of education. HEENT: NC/AT Cranial nerves: CN II: Visual almaraz full to confrontation. No loss of vision CN III, IV, : pupils equal round and reactive to light. Extraocular movements intact. No ptosis present. CN V: Facial sensation is normal. CN VII: Full and symmetric facial movement. CN VIII: Hearing is normal CN IX and X: Palate elevates symmetrically. CN XI: Shoulder shrug is normal bilaterally. CN XII: Tongue is midline without atrophy or fasciculation. Speech: Clear and fluent no aphasia or dysarthria Pronator drift: Negative bilateral upper extremity Coordination: Intact, no signs of dysmetria Good finger to nose and rapid alternating movements Sensory: Sensation is intact to light, temperature, pinprick and vibratory touch throughout on the left extremities except Some decreased in left distal LE to vibratory and pin prick. Right hemisensory deficit. Motor: LUE 5/5 RUE 4/5 LLE 5/5 RLE 4/5 Tone: Mild tremor antigravity and intension on the right. No bradykinesia or rigidity DTR: Bilateral Biceps 2/4 Bilateral BR 2/4 Bilateral Patellar 1/4 No spasticity Gait: Uses walker to ambulate. NO true shuffling. Romberg's positive Review and summary of old records: Assessment/Plan Diagnoses and all orders for this visit: Right hemiparesis (CMS/HCC) - MR brain wo contrast; Future Weakness of both lower extremities - Ambulatory referral to Neurology Sensory deficit, right TONYA (obstructive sleep apnea) Diabetic peripheral neuropathy (CMS/HCC) 59-year-old male reports a previous of Parkinson's disease however at this time I do not see any true Parkinson's symptoms. Does have a very mild bilateral upper extremity tremor worse on right than the left that appears to be more of an essential type of tremor. He has no resting tremor. There is no bradykinesia rigidity or cogwheeling. He does however have right hemiparesis and sierra sensory deficit. I am certainly concerned that he could have a cerebral infarct. It does have a history of OR. He does have diabetes high blood pressure high cholesterol and obesity along with being male. Also has a very narrow airway opening that could be causing some obstructive sleep apnea. He is already on aspirin Plavix and. He is on medications for his blood pressure. He is on medications for his diabetes. At this time I recommend he have an MRI of the brain along with a least a home sleep study to assess for underlying obstructive sleep apnea. At this time he is refusing to do a sleep study. Patient was offered some medication for his tremor at this time they want to monitor and see how it transpires that time. Likely do a trial of some amantadine. Patient is not exercising he continues to smoke and he needs to start exercising and stopped smoking. To control his secondary stroke risk factors and work on weight loss. He also looks to have likely a diabetic neuropathy which is likely causing some of the walking issues for which she is using a walker. We can consider an EMG. Plan Patient was counseled at this time he is not exhibiting any signs or symptoms of true Parkinson's disease He was offered a tremor medicine wants to hold I recommend he have at least a home sleep study but he is refusing at this time MRI of the brain to assess for underlying structural lesion that could be causing his right hemiparesis and sierra sensory deficit Stopped smoking Exercise Control secondary stroke risk factors Continue the aspirin and Plavix along with a statin Consider EMG bilateral lower extremity the next visit for possible neuropathy. The diagnosis was all discussed with the patient. All questions were answered and they agreed with the treatment plan. Patient will call if there are any new issues or questions. Pt has been fully educated on their diagnosis, treatment options, follow up plan, and return instructions Return to clinic: 2 months documented in this encounter [facility] 07-13-2024 History of Presen t illness Narrative Associated Problem(s): Mixed hyperlipidemia (CMS/HCC) Will add zetia 10mg in addition to his atorvastatin Recheck labs in 8 weeks documented in this encounter [facility] 06-27-2024 History of Presen t illness Narrative Associated Problem(s): Weakness of both lower extremities Differentials: DN, lumbar radiculopathy, or ??parkinson's Refer to Neurology Associated Problem(s): COPD (chronic obstructive pulmonary disease) ([facility]) Continue with inhalers Associated Problem(s): Insomnia Takes trazadone to help with sleep Does well Pt is having more of a hard time walking and getting around like he use to he is noticing he has become slower as well Sugars are averaging 150s-180s Images from the original note were not included. Jose Delacruz is a 59 y.o. male presents with chief complaint of Diabetes HPI: Depression/anxiety: currently taking wellbutrin and celexa: doing well no SI/HI/hallucinations noted No acute side effects from meds noted. Yesterday had family gathering yesterday worsen anxiety. Weakness: walker slower than normal, both leg pain and lumbar back pain, no falls, no cauda equina, feeling harder to get up out the chair, walking longer distances, also having some balance issues. No worsening tremors . Diabetes He presents for his follow-up diabetic visit. He has type 2 diabetes mellitus. His disease course has been stable. There are no hypoglycemic associated symptoms. Pertinent negatives for hypoglycemia include no dizziness, headaches, nervousness/anxiousness, seizures or tremors. Associated symptoms include fatigue, foot paresthesias, polyphagia, polyuria and weakness. Pertinent negatives for diabetes include no blurred vision, no chest pain, no polydipsia and no visual change. There are no hypoglycemic complications. Symptoms are stable. Diabetic complications include heart disease and peripheral neuropathy. Pertinent negatives for diabetic complications include no CVA. Risk factors for coronary artery disease include diabetes mellitus, dyslipidemia, hypertension, male sex, obesity, sedentary lifestyle and tobacco exposure. Current diabetic treatment includes oral agent (dual therapy) and insulin injections. He is compliant with treatment all of the time. His weight is decreasing steadily. His overall blood glucose range is 140-180 mg/dl. An ANGEL inhibitor/angiotensin II receptor jackie is being taken. 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 Hypertension This is a chronic problem. The current episode started more than 1 year ago. The problem is unchanged. The problem is controlled. Associated symptoms include malaise/fatigue. Pertinent negatives include no blurred vision, chest pain, headaches, palpitations, peripheral edema or shortness of breath. There are no associated agents to hypertension. Risk factors for coronary artery disease include diabetes mellitus, dyslipidemia, male gender, obesity, sedentary lifestyle and smoking/tobacco exposure. Past treatments include ANGEL inhibitors and beta blockers. The current treatment provides significant improvement. There are no compliance problems. Hypertensive end-organ damage includes CAD/OR. There is no history of angina, kidney disease or CVA. SUBJECTIVE: MEDICATIONS: Current Outpatient Medications Medication Instructions aspirin 81 mg, Daily atorvastatin (LIPITOR) 80 mg, Oral, Nightly budesonide-formoterol (Symbicort) 160-4.5 MCG/ACT inhaler 2 puffs, Inhalation, 2 times daily RT, Rinse mouth with water after use to reduce aftertaste and incidence of candidiasis. Do not swallow. buPROPion XL (WELLBUTRIN XL) 300 mg, Oral, Daily, Do not crush, chew, or split citalopram (CELEXA) 40 mg, Oral, Daily, Take 40 mg by mouth in the morning.Take 1 tablet (40 mg) by mouth in the morning. Take 40 mg by mouth in the morning.. clopidogrel (PLAVIX) 75 mg, Oral, Daily Continuous Blood Gluc Computer Game Programmer (FreeStyle Marc 14 Day Moore) device 1 each, Does not apply, Daily Continuous Glucose Sensor (FreeStyle Marc 14 Day Sensor) misc 1 each, Other, Daily insulin glargine (LANTUS) 15 Units, Subcutaneous, Nightly insulin pen needle (Droplet Pen [place]) 32G x 5 mm misc 1 each, Subcutaneous, Daily lidocaine (Lidoderm) 5 % patch Apply 1 patch to affected area may leave on for 12 hours then remove, no more than 2 patch on at any time lisinopril 20 mg, Oral, Daily, Take 20 mg by mouth in the morning. metaxalone (SKELAXIN) 800 mg, Oral, Every 8 hours PRN, Take 800 mg by mouth every 8 (eight) hours if needed for muscle spasms metFORMIN XR (GLUCOPHAGE-XR) 750 mg, Oral, 2 times daily with meals metoprolol tartrate (LOPRESSOR) 50 mg, Oral, 2 times daily, Take 50 mg by mouth in the morning and 50 mg before bedtime. Misc. Devices (Quad Cane) misc No dose, route, or frequency recorded. pregabalin (LYRICA) 150 mg, Oral, Every 8 hours traZODone (DESYREL) 150 mg, Oral, Nightly, Take 150 mg by mouth at bedtime ALLERGIES: Allergies Allergen Reactions Penicillins REVIEW OF SYMPTOMS: Review of Systems Constitutional: Positive for fatigue and malaise/fatigue. Negative for activity change, appetite change, chills, fever and unexpected weight change. HENT: Negative for congestion, ear pain, nosebleeds, rhinorrhea, sinus pressure, sneezing, sore throat, trouble swallowing and voice change. Eyes: Negative for blurred vision, pain, discharge and visual disturbance. Respiratory: Negative for apnea, cough, chest tightness, shortness of breath and wheezing. Cardiovascular: Negative for chest pain, palpitations and leg swelling. Gastrointestinal: Negative for abdominal distention, abdominal pain, blood in stool, constipation, diarrhea, nausea and vomiting. Genitourinary: Negative for decreased urine volume, difficulty urinating, dysuria, flank pain and hematuria. Musculoskeletal: Positive for arthralgias and back pain. Negative for joint swelling and myalgias. Skin: Negative for color change, rash and wound. Neurological: Positive for weakness and numbness. Negative for dizziness, tremors, seizures and headaches. Psychiatric/Behavioral: Negative for agitation, decreased concentration, hallucinations, self-injury, sleep disturbance and suicidal ideas. The patient is not nervous/anxious. Hematological: Negative for adenopathy. Does not bruise/bleed easily. Endocrine: Positive for polyphagia and polyuria. Negative for cold intolerance, heat intolerance and polydipsia. Allergic/Immunologic: Negative for environmental allergies and food allergies. PAST MEDICAL HISTORY Past Medical History: Diagnosis Date Chronic back pain Class 3 severe obesity due to excess calories with body mass index (BMI) of 40.0 to 44.9 in adult ([facility] [place]) 07/23/2023 COPD (chronic obstructive pulmonary disease) ([facility] [place] 10/27/2023 Coronary artery disease involving pechanga coronary artery of pechanga heart without angina pectoris ([facility] [place] 07/22/2023 DDD (degenerative disc disease), lumbar 07/23/2023 Depression ([facility] [place] 10/27/2023 Elevated alkaline phosphatase level 10/27/2023 Erectile dysfunction 10/27/2023 Hyperkalemia 10/27/2023 Insomnia 10/27/2023 Lumbar radiculopathy, chronic 10/27/2023 Mixed hyperlipidemia ([facility] [place] 07/16/2023 Myocardial infarct ([facility] [place] 10/27/2023 Painful diabetic neuropathy ([facility] [place] 10/27/2023 Parkinsons ([facility] [place] 10/27/2023 Tobacco dependence 07/23/2023 Type 2 diabetes mellitus ([facility] [place] 10/27/2023 Type 2 diabetes mellitus with diabetic polyneuropathy, with long-term current use of insulin ([facility] [place] 07/22/2023 History reviewed. No pertinent surgical history. family history is not on file. OBJECTIVE: Visit Vitals BP 110/70 (BP Location: Right arm, Patient Position: Sitting, BP Cuff Size: Adult long) Pulse 68 Temp 96.5 F (Temporal) Resp 19 Ht 5' 11 Wt 281 lb 6.4 oz SpO2 95% BMI 39.25 kg/m Smoking Status Every Day BSA 2.53 m Physical Exam Vitals and nursing note reviewed. Constitutional: Appearance: Normal appearance. He is obese. He is not ill-appearing. HENT: Head: Normocephalic. Right Ear: Tympanic membrane, ear canal and external ear normal. Left Ear: Tympanic membrane, ear canal and external ear normal. Nose: Nose normal. No congestion or rhinorrhea. Mouth/Throat: Mouth: Mucous membranes are moist. Pharynx: Oropharynx is clear. No oropharyngeal exudate or posterior oropharyngeal erythema. Eyes: General: No scleral icterus. Extraocular Movements: Extraocular movements intact. Conjunctiva/sclera: Conjunctivae normal. Pupils: Pupils are equal, round, and reactive to light. Neck: Vascular: No carotid bruit. Cardiovascular: Rate and Rhythm: Normal rate and regular rhythm. Pulses: Normal pulses. Heart sounds: Normal heart sounds. Pulmonary: Effort: Pulmonary effort is normal. Breath sounds: Normal breath sounds. No wheezing. Abdominal: General: Bowel sounds are normal. Palpations: Abdomen is soft. Musculoskeletal: Cervical back: Neck supple. Right lower leg: No edema. Left lower leg: No edema. Comments: Limited ROM cervical spine for flex/ext MMT 4.5/5 bilat UE, RLE 4/5, LLE 5/5 DTR's 2+ bilat UE, 1+ RLE, 2+ achilles right, 2+ achilles/patellar left Limited ROM lumbar spine, walks with cane and wider stance Lymphadenopathy: Cervical: No cervical adenopathy. Skin: General: Skin is warm and dry. Capillary Refill: Capillary refill takes 2 to 3 seconds. Neurological: General: No focal deficit present. Mental Status: He is alert. Comments: Monofilament testing : absent bilat feet, no open wound/callouses Decreased vibratory sense in feet Psychiatric: Mood and Affect: Mood normal. Behavior: Behavior normal. Thought Content: Thought content normal. Judgment: Judgment normal. ASSESSMENT AND PLAN: Follow up in about 3 months (around 09/27/2024) for Recheck. Problem List Items Addressed This Visit Mixed hyperlipidemia (CMS/HCC) Relevant Medications atorvastatin (Lipitor) 80 MG tablet Type 2 diabetes mellitus with diabetic polyneuropathy, with long-term current use of insulin (CMS/HCC) - Primary Cont lyrica OARRS reveiwed Tight glucose control Relevant Medications insulin glargine (Lantus) 100 UNIT/ML injection metFORMIN XR (Glucophage-XR) 750 MG 24 hr tablet pregabalin (Lyrica) 150 MG capsule Coronary artery disease involving pechanga coronary artery of pechanga heart without angina pectoris (CMS/HCC) Cont statin, and risk factor modification No active angina at this time Relevant Medications clopidogrel (Plavix) 75 MG tablet metoprolol tartrate (Lopressor) 50 MG tablet Primary hypertension (CMS/HCC) Please check blood pressure daily and record DASH diet Limit caffeine Take medication as directed Contact office if chest pain, pressure, dizziness, shortness of breath, swelling legs Recommend slow position changes Relevant Medications lisinopril 20 MG tablet metoprolol tartrate (Lopressor) 50 MG tablet Tobacco dependence The patient has been advised of the risks of continued smoking: stroke, OR, all forms of cancer, lung disease, and . Options for quitting smoking include: cold turkey, hypnosis, acupuncture, nicotine replacement meds (gum, lozenges, and patches), Buproprion, and Varenicline. At this time pt is encouraged to evaluate their goals for wanting to quit smoking, and reach out to provider when ready to start this process Class 3 severe obesity due to excess calories with body mass index (BMI) of 40.0 to 44.9 in adult ([facility]) Discussed with patient their BMI (actual, verses recommended). We have also discussed lifestyle modifications: attempts to perform physical activity as chronic conditions allow, also to monitor dietary intake: increasing protein/fruits/veggies and lowering carb intake (unless contraindicated). Limit sodas, juices, and sugary drinks. Insomnia Takes trazadone to help with sleep Does well Relevant Medications traZODone (Desyrel) 150 MG tablet Parkinson's disease without dyskinesia, without mention of fluctuations ([facility]) Does not follow with neurology No sure if weakness is related to this, or DN, or lumbar radiculopathy COPD (chronic obstructive pulmonary disease) ([facility]) Continue with inhalers Relevant Medications budesonide-formoterol (Symbicort) 160-4.5 MCG/ACT inhaler Type 2 diabetes mellitus ([facility]) Check blood sugars daily, notify if <70 [...] sugars. A1c due after 07/04/24, order given Relevant Medications Continuous Glucose Sensor (FreeStyle Marc 14 Day Sensor) [facility] Other Relevant Orders Hemoglobin A1c Weakness of both lower extremities Differentials: DN, lumbar radiculopathy, or ??parkinson's Refer to Neurology Other Visit Diagnoses Current mild episode of major depressive disorder without prior episode ([facility]) ([facility]) Relevant Medications buPROPion XL (Wellbutrin XL) 300 MG 24 hr tablet citalopram (CeleXA) 40 MG tablet Associated Problem(s): Tobacco dependence The patient has been advised of the risks of continued smoking: stroke, OR, all forms of cancer, lung disease, and . Options for quitting smoking include: cold turkey, hypnosis, acupuncture, nicotine replacement meds (gum, lozenges, and patches), Buproprion, and Varenicline. At this time pt is encouraged to evaluate their goals for wanting to quit smoking, and reach out to provider when ready to start this process Associated Problem(s): Class 3 severe obesity due to excess calories with body mass index (BMI) of 40.0 to 44.9 in adult ([facility]) Discussed with patient their BMI (actual, verses recommended). We have also discussed lifestyle modifications: attempts to perform physical activity as chronic conditions allow, also to monitor dietary intake: increasing protein/fruits/veggies and lowering carb intake (unless contraindicated). Limit sodas, juices, and sugary drinks. Associated Problem(s): Type 2 diabetes mellitus ([facility]) Check blood sugars daily, notify if <70 [...] sugars. A1c due after 07/04/24, order given Associated Problem(s): Coronary artery disease involving pechanga coronary artery of pechanga heart without angina pectoris (CMS/HCC) Cont statin, and risk factor modification No active angina at this time Associated Problem(s): Primary hypertension (CMS/HCC) Please check blood pressure daily and record DASH diet Limit caffeine Take medication as directed Contact office if chest pain, pressure, dizziness, shortness of breath, swelling legs Recommend slow position changes Associated Problem(s): Parkinson's disease without dyskinesia, without mention of fluctuations (CMS/HCC) Does not follow with neurology No sure if weakness is related to this, or DN, or lumbar radiculopathy Associated Problem(s): Type 2 diabetes mellitus with diabetic polyneuropathy, with long-term current use of insulin (CMS/HCC) Cont lyjerela VINI reveiwed Tight glucose control documented in this encounter [facility] 06-27-2024 Instructions Lenore Abad NP - 06/27/2024 5:30 PM EST Referral to Neurology: [facility] [place] ([facility]), they should call you for an appt Labs: fasting, due after 07/04/24 documented in this encounter [facility] 03-31-2024 Telephone encounter Note Please tell pt that his last eye exam was in 2021. He does need to get something scheduled with the eye doctor office [place] [facility] 03-31-2024 Miscellaneous Notes Please tell pt that his last eye exam was in 2021. He does need to get something scheduled with the eye doctor office [place] documented in this encounter [facility] 03-28-2024 Telephone encounter Note Please contact my eye doctor office in [place], get updated copy of pt's most recent eye exam [place] [facility] 03-28-2024 Miscellaneous Notes Please contact my eye doctor office in [place], get updated copy of pt's most recent eye exam [place] documented in this encounter [facility] 03-28-2024 History of Presen t illness Narrative Associated Problem(s): Tobacco dependence The patient has been advised of the risks of continued smoking: stroke, OR, all forms of cancer, lung disease, and [...] is > or equal to 40 pack-year ([id number] years). If needed the patient is able [...] counseled on the importance of smoking cessation. Associated Problem(s): Major depressive disorder, single episode, mild (HCC) (CMS/HCC) Continue current meds Associated Problem(s): Type 2 diabetes mellitus (CMS/HCC) Check blood sugars daily, notify if <70 [...] diet low in carbohydrates, and simple sugars. Associated Problem(s): Primary hypertension (CMS/HCC) In goal range Associated Problem(s): Coronary artery disease involving pechanga coronary artery of pechanga heart without angina pectoris (CMS/HCC) Cont statin, and risk factor modification No active angina at this time Associated Problem(s): COPD (chronic obstructive pulmonary disease) (CMS/HCC) Recommend quitting smoking Associated Problem(s): Type 2 diabetes mellitus with diabetic polyneuropathy, with long-term current use of insulin ([facility]) Austen cabrera Pt went to [facility] 2-3 weeks ago for high sugar. Son would like to know what range pt needs to be for high and low. Images from the original note were not included. Jose Delacruz is a 59 y.o. male presents with chief complaint of No chief complaint on file. HPI: Hypertension This is a chronic problem. The current episode started more than 1 year ago. The problem is unchanged. The problem is controlled. Pertinent negatives include no blurred vision, headaches, palpitations, peripheral edema or shortness of breath. There are no associated agents to hypertension. Risk factors for coronary artery disease include diabetes mellitus, dyslipidemia, male gender, obesity, sedentary lifestyle and smoking/tobacco exposure. Past treatments include ANGEL inhibitors and beta blockers. The current treatment provides significant improvement. There are no compliance problems. Hypertensive end-organ damage includes CAD/OR. There is no history of retinopathy. Diabetes He presents for his follow-up diabetic visit. He has type 2 diabetes mellitus. His disease course has been stable. There are no hypoglycemic associated symptoms. Pertinent negatives for hypoglycemia include no confusion, dizziness, headaches, nervousness/anxiousness, seizures or tremors. Associated symptoms include foot paresthesias. Pertinent negatives for diabetes include no blurred vision, no foot ulcerations, no polydipsia, no polyphagia, no polyuria, no visual change and no weakness. There are no hypoglycemic complications. Symptoms are stable. Diabetic complications include heart disease and peripheral neuropathy. Pertinent negatives for diabetic complications include no impotence or retinopathy. Risk factors for coronary artery disease include diabetes mellitus, dyslipidemia, hypertension, male sex, obesity, sedentary lifestyle and tobacco exposure. Current diabetic treatment includes oral agent (dual therapy) and insulin injections. He is compliant with treatment all of the time. He is following a generally unhealthy diet. His overall blood glucose range is 140-180 mg/dl. An ANGEL inhibitor/angiotensin II receptor jackie is being taken. 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 Depression Visit Type: follow-up Patient presents with the following symptoms: memory impairment. Patient is not experiencing: anhedonia, chest pain, choking sensation, compulsions, confusion, decreased concentration, dizziness, excessive worry, feelings of worthlessness, hypersomnia, hyperventilation, impotence, insomnia, irritability, muscle tension, nervousness/anxiety, palpitations, restlessness, shortness of breath, suicidal ideas, suicidal planning and thoughts of . Frequency of symptoms: occasionally Severity: mild Compliance with medications: 76-100% SUBJECTIVE: MEDICATIONS: Current Outpatient Medications Medication Instructions atorvastatin (LIPITOR) 40 mg, Oral, Daily budesonide-formoterol (Symbicort) 160-4.5 MCG/ACT inhaler 2 puffs, Inhalation, 2 times daily RT, Rinse mouth with water after use to reduce aftertaste and incidence of candidiasis. Do not swallow. buPROPion XL (WELLBUTRIN XL) 300 mg, Oral, Daily, Do not crush, chew, or split citalopram (CELEXA) 40 mg, Oral, Daily, Take 40 mg by mouth in the morning.Take 1 tablet (40 mg) by mouth in the morning. Take 40 mg by mouth in the morning.. Continuous Blood Gluc Computer Game Programmer (FreeStyle Marc 14 Day Moore) device 1 each, Does not apply, Daily Continuous Glucose Sensor (FreeStyle Marc 14 Day Sensor) misc 1 each, Other, Daily insulin glargine (Lantus) 100 UNIT/ML injection 15 units once a day, insulin pen needle (Droplet Pen [place]) 32G x 5 mm misc 1 each, Subcutaneous, Daily lidocaine (Lidoderm) 5 % patch Apply 1 patch to affected area may leave on for 12 hours then remove, no more than 2 patch on at any time lisinopril 20 mg, Oral, Daily, Take 20 mg by mouth in the morning. metaxalone (SKELAXIN) 800 mg, Oral, Every 8 hours PRN, Take 800 mg by mouth every 8 (eight) hours if needed for muscle spasms metFORMIN XR (GLUCOPHAGE-XR) 750 mg, Oral, 2 times daily, Do not crush, chew, or split.Take 750 mg by mouth in the morning and 750 mg before bedtime. Do not crush, chew, or split.. metoprolol tartrate (LOPRESSOR) 50 mg, Oral, 2 times daily, Take 50 mg by mouth in the morning and 50 mg before bedtime. Misc. Devices (Quad Cane) misc Does not apply pregabalin (LYRICA) 150 mg, Oral, Every 8 hours traZODone (DESYREL) 150 mg, Oral, Nightly, Take 150 mg by mouth at bedtime ALLERGIES: Allergies Allergen Reactions Penicillins REVIEW OF SYMPTOMS: Review of Systems Constitutional: Negative for activity change, appetite change, irritability and unexpected weight change. HENT: Negative for ear pain, nosebleeds, sneezing, trouble swallowing and voice change. Eyes: Negative for blurred vision, pain, discharge and visual disturbance. Respiratory: Negative for apnea, choking, chest tightness, shortness of breath and wheezing. Cardiovascular: Negative for palpitations and leg swelling. Gastrointestinal: Negative for abdominal distention, blood in stool, constipation and diarrhea. Genitourinary: Negative for decreased urine volume, difficulty urinating, dysuria, hematuria and impotence. Musculoskeletal: Positive for arthralgias, back pain and myalgias. Skin: Negative for color change. Neurological: Negative for dizziness, tremors, seizures, weakness and headaches. Psychiatric/Behavioral: Positive for depression. Negative for agitation, confusion, decreased concentration, hallucinations, self-injury and suicidal ideas. The patient is not nervous/anxious and does not have insomnia. Hematological: Negative for adenopathy. Does not bruise/bleed easily. Endocrine: Negative for cold intolerance, heat intolerance, polydipsia, polyphagia and polyuria. Allergic/Immunologic: Negative for environmental allergies and food allergies. PAST MEDICAL HISTORY Past Medical History: Diagnosis Date Chronic back pain Class 3 severe obesity due to excess calories with body mass index (BMI) of 40.0 to 44.9 in adult ([facility]) 07/23/2023 COPD (chronic obstructive pulmonary disease) ([facility]) 10/27/2023 Coronary artery disease involving pechanga coronary artery of pechanga heart without angina pectoris ([facility]) 07/22/2023 DDD (degenerative disc disease), lumbar 07/23/2023 Depression ([facility]) 10/27/2023 Elevated alkaline phosphatase level 10/27/2023 Erectile dysfunction 10/27/2023 Hyperkalemia 10/27/2023 Insomnia 10/27/2023 Lumbar radiculopathy, chronic 10/27/2023 Mixed hyperlipidemia ([facility]) 07/16/2023 Myocardial infarct ([facility] [place] 10/27/2023 Painful diabetic neuropathy ([facility] [place] 10/27/2023 Parkinsons ([facility] [place]) 10/27/2023 Tobacco dependence 07/23/2023 Type 2 diabetes mellitus ([facility] [place] 10/27/2023 Type 2 diabetes mellitus with diabetic polyneuropathy, with long-term current use of insulin ([facility]) 07/22/2023 History reviewed. No pertinent surgical history. family history is not on file. OBJECTIVE: Visit Vitals BP 106/70 (BP Location: Left arm, Patient Position: Sitting, BP Cuff Size: Adult long) Pulse 66 Temp 97.7 F (Temporal) Resp 18 Ht 5' 11 Wt 290 lb 12.8 oz SpO2 98% BMI 40.56 kg/m Smoking Status Every Day BSA 2.57 m Physical Exam Vitals and nursing note reviewed. Constitutional: Appearance: Normal appearance. He is obese. HENT: Head: Normocephalic. Right Ear: External ear normal. Left Ear: External ear normal. Nose: Nose normal. Mouth/Throat: Mouth: Mucous membranes are moist. Pharynx: Oropharynx is clear. Eyes: Extraocular Movements: Extraocular movements intact. Conjunctiva/sclera: Conjunctivae normal. Neck: Vascular: No carotid bruit. Cardiovascular: Rate and Rhythm: Normal rate and regular rhythm. Pulses: Normal pulses. Heart sounds: Normal heart sounds. Pulmonary: Effort: Pulmonary effort is normal. No respiratory distress. Breath sounds: Normal breath sounds. No stridor. No wheezing or rhonchi. Chest: Chest wall: No tenderness. Abdominal: General: Bowel sounds are normal. Palpations: Abdomen is soft. Tenderness: There is no abdominal tenderness. There is no guarding or rebound. Musculoskeletal: Cervical back: Neck supple. Right lower leg: No edema. Left lower leg: No edema. Comments: Walks with can, forward flexed posture Skin: General: Skin is warm and dry. Capillary Refill: Capillary refill takes 2 to 3 seconds. Neurological: General: No focal deficit present. Mental Status: He is alert. Gait: Gait abnormal. Psychiatric: Mood and Affect: Mood normal. Behavior: Behavior normal. Thought Content: Thought content normal. Judgment: Judgment normal. ASSESSMENT AND PLAN: No follow-ups on file. Problem List Items Addressed This Visit Type 2 diabetes mellitus with diabetic polyneuropathy, with long-term current use of insulin ([facility]) - Primary Cont lyrica Coronary artery disease involving pechanga coronary artery of pechanga heart without angina pectoris ([facility]) Cont statin, and risk factor modification No active angina at this time Primary hypertension ([facility]) In goal range Major depressive disorder, single episode, mild (HCC) ([facility]) Continue current meds Tobacco dependence The patient has been advised of the risks of continued smoking: stroke, OR, all forms of cancer, lung disease, and [...] is > or equal to 40 pack-year ([id number] years). If needed the patient is able [...] counseled on the importance of smoking cessation. Relevant Orders CT lung screening low dose Class 3 severe obesity due to excess calories with body mass index (BMI) of 40.0 to 44.9 in adult ([facility]) Parkinson's disease without dyskinesia, without mention of fluctuations ([facility]) COPD (chronic obstructive pulmonary disease) ([facility]) Recommend quitting smoking Type 2 diabetes mellitus ([facility]) Check blood sugars daily, notify if <70 [...] diet low in carbohydrates, and simple sugars. Cigarette nicotine dependence without complication Relevant Orders CT lung screening low dose documented in this encounter [facility] 11-04-2023 Miscellaneous Notes Received faxed referral for patient to be seen for Lumbar. Unable to reach patient or leave message, # not in service. documented in this encounter [facility] 11-04-2023 Telephone encounter Note Received faxed referral for patient to be seen for Lumbar. Unable to reach patient or leave message, # not in service. [facility] 09-30-2022 Note CONSULTATION CONSULTATION DATE: 09/30/2022 TO: [...] avoid surgery, if at all possible. [facility] 05-20-2022 Note CONSULTATION CONSULTATION DATE: Low back [...] exercises. No medications were prescribed. CC: Lenore Abad, GRISELDA [facility] 05-20-2022 Note CONSULTATION CONSULTATION DATE: 05/20/2022 ADDENDUM NOTE: Patient has done a total of 6-8 weeks of home exercises in a sitting position with leg extensions and pushing/pulling exercises. He does use a walker. He has been on farmer tree fruit and nut crops treatment with Lyrica 100 mg t.i.d. with current maintenance of his radicular pain. MUSCULOSKELETAL: His motor is 4/5 bilaterally with slight motor weakness noted to the right anterior tibialis. Extensors are intact. NEUROLOGICALLY: Patient is cognitively intact. He has +1 bilateral patellar and Achilles reflexes. [facility] Evaluation note No assessment inform ation [facility] Work Phone: Evaluation note Diagnosis Type 2 diabetes mellitus with diabetic polyneuropathy, with long-term current use of insulin ([facility])- Primary Peripheral polyneuropathy Coronary artery disease involving pechanga coronary artery of pechanga heart without angina pectoris ([facility]) Primary hypertension ([facility]) Unspecified essential hypertension Current mild episode of major depressive disorder without prior episode (HCC) ([facility]) Tobacco dependence Tobacco use disorder Class 3 severe obesity due to excess calories with serious comorbidity and body mass index (BMI) of 40.0 to 44.9 in adult ([facility]) Mixed hyperlipidemia ([facility] [facility]) Mixed hyperlipidemia DDD (degenerative disc disease), lumbar Degeneration of lumbar or lumbosacral intervertebral disc Simple chronic bronchitis ([facility]) Simple chronic bronchitis Type 2 diabetes mellitus without complication, with long-term current use of insulin ([facility])- Primary Primary hypertension ([facility]) Unspecified essential hypertension Coronary artery disease involving pechanga coronary artery of pechanga heart without angina pectoris ([facility]) Class 3 severe obesity due to excess calories with serious comorbidity and body mass index (BMI) of 40.0 to 44.9 in adult ([facility]) Screening for prostate cancer Special screening for malignant neoplasm of prostate Tobacco dependence Tobacco use disorder Mixed hyperlipidemia ([facility]) Mixed hyperlipidemia Type 2 diabetes mellitus with diabetic polyneuropathy, with long-term current use of insulin ([facility]) Lumbar radiculopathy, chronic Chronic obstructive pulmonary disease, unspecified COPD type ([facility]) DDD (degenerative disc disease), lumbar Degeneration of lumbar or lumbosacral intervertebral disc Type 2 diabetes mellitus without complication, with long-term current use of insulin ([facility])- Primary Major depressive disorder, single episode, mild (HCC) ([facility]) Major depressive disorder, single episode, mild Parkinson's disease without dyskinesia, without mention of fluctuations ([facility]) Type 2 diabetes mellitus with diabetic polyneuropathy, with long-term current use of insulin ([facility]) Chronic obstructive pulmonary disease, unspecified COPD type ([facility]) Coronary artery disease involving pechanga coronary artery of pechanga heart without angina pectoris ([facility]) Primary hypertension ([facility]) Unspecified essential hypertension Class 3 severe obesity due to excess calories with serious comorbidity and body mass index (BMI) of 40.0 to 44.9 in adult ([facility]) Tobacco dependence Tobacco use disorder Cigarette nicotine dependence without complication Other insomnia- Primary Tobacco dependence Tobacco use disorder documented in this encounter [facility] HealthcareEvaluation note* Diagnosis Type 2 diabetes mellitus with diabetic polyneuropathy, with long-term current use of insulin (CMS/HCC)- Primary Peripheral polyneuropathy Coronary artery disease involving pechanga coronary artery of pechanga heart without angina pectoris (CMS/HCC) Primary hypertension (CMS/HCC) Unspecified essential hypertension Current mild episode of major depressive disorder without prior episode (HCC) (CMS/HCC) Tobacco dependence Tobacco use disorder Class 3 severe obesity due to excess calories with serious comorbidity and body mass index (BMI) of 40.0 to 44.9 in adult (CMS/HCC) Mixed hyperlipidemia (CMS/HCC) Mixed hyperlipidemia DDD (degenerative disc disease), lumbar Degeneration of lumbar or lumbosacral intervertebral disc Simple chronic bronchitis (CMS/HCC) Simple chronic bronchitis Type 2 diabetes mellitus without complication, with long-term current use of insulin (CMS/HCC)- Primary Primary hypertension (CMS/HCC) Unspecified essential hypertension Coronary artery disease involving pechanga coronary artery of pechanga heart without angina pectoris (CMS/HCC) Class 3 severe obesity due to excess calories with serious comorbidity and body mass index (BMI) of 40.0 to 44.9 in adult (CMS/HCC) Screening for prostate cancer Special screening for malignant neoplasm of prostate Tobacco dependence Tobacco use disorder Mixed hyperlipidemia (CMS/HCC) Mixed hyperlipidemia Type 2 diabetes mellitus with diabetic polyneuropathy, with long-term current use of insulin (CMS/HCC) Lumbar radiculopathy, chronic Chronic obstructive pulmonary disease, unspecified COPD type (CMS/HCC) DDD (degenerative disc disease), lumbar Degeneration of lumbar or lumbosacral intervertebral disc Type 2 diabetes mellitus without complication, with long-term current use of insulin (CMS/HCC)- Primary Major depressive disorder, single episode, mild (HCC) (CMS/HCC) Major depressive disorder, single episode, mild Parkinson's disease without dyskinesia, without mention of fluctuations (CMS/HCC) Type 2 diabetes mellitus with diabetic polyneuropathy, with long-term current use of insulin (CMS/HCC) Chronic obstructive pulmonary disease, unspecified COPD type (CMS/HCC) Coronary artery disease involving pechanga coronary artery of pechanga heart without angina pectoris (CMS/HCC) Primary hypertension (CMS/HCC) Unspecified essential hypertension Class 3 severe obesity due to excess calories with serious comorbidity and body mass index (BMI) of 40.0 to 44.9 in adult ([facility]) Tobacco dependence Tobacco use disorder Cigarette nicotine dependence without complication Type 2 diabetes mellitus with diabetic polyneuropathy, with long-term current use of insulin ([facility])- Primary Parkinson's disease without dyskinesia, without mention of fluctuations ([facility]) Primary hypertension (CMS/[facility]) Unspecified essential hypertension Coronary artery disease involving pechanga coronary artery of pechanga heart without angina pectoris ([facility]) Type 2 diabetes mellitus without complication, with long-term current use of insulin ([facility]) Class 3 severe obesity due to excess calories with serious comorbidity and body mass index (BMI) of 40.0 to 44.9 in adult ([facility]) Tobacco dependence Tobacco use disorder Mixed hyperlipidemia ([facility]) Mixed hyperlipidemia Chronic obstructive pulmonary disease, unspecified COPD type ([facility]) Current mild episode of major depressive disorder without prior episode (HCC) ([facility]) Other insomnia Weakness of both lower extremities documented in this encounter [facility] HealthcareEvaluation note* Diagnosis Type 2 diabetes mellitus with diabetic polyneuropathy, with long-term current use of insulin ([facility])- Primary Peripheral polyneuropathy Coronary artery disease involving pechanga coronary artery of pechanga heart without angina pectoris ([facility]) Primary hypertension ([facility]) Unspecified essential hypertension Current mild episode of major depressive disorder without prior episode (HCC) ([facility]) Tobacco dependence Tobacco use disorder Class 3 severe obesity due to excess calories with serious comorbidity and body mass index (BMI) of 40.0 to 44.9 in adult ([facility]) Mixed hyperlipidemia ([facility]) Mixed hyperlipidemia DDD (degenerative disc disease), lumbar Degeneration of lumbar or lumbosacral intervertebral disc Simple chronic bronchitis ([facility]) Simple chronic bronchitis Type 2 diabetes mellitus without complication, with long-term current use of insulin ([facility])- Primary Primary hypertension ([facility]) Unspecified essential hypertension Coronary artery disease involving pechanga coronary artery of pechanga heart without angina pectoris ([facility]) Class 3 severe obesity due to excess calories with serious comorbidity and body mass index (BMI) of 40.0 to 44.9 in adult ([facility]) Screening for prostate cancer Special screening for malignant neoplasm of prostate Tobacco dependence Tobacco use disorder Mixed hyperlipidemia ([facility]/HCC) Mixed hyperlipidemia Type 2 diabetes mellitus with diabetic polyneuropathy, with long-term current use of insulin (CMS/HCC) Lumbar radiculopathy, chronic Chronic obstructive pulmonary disease, unspecified COPD type (CMS/HCC) DDD (degenerative disc disease), lumbar Degeneration of lumbar or lumbosacral intervertebral disc Type 2 diabetes mellitus without complication, with long-term current use of insulin (CMS/HCC)- Primary Major depressive disorder, single episode, mild (HCC) (CMS/HCC) Major depressive disorder, single episode, mild Parkinson's disease without dyskinesia, without mention of fluctuations (CMS/HCC) Type 2 diabetes mellitus with diabetic polyneuropathy, with long-term current use of insulin ([facility]) Chronic obstructive pulmonary disease, unspecified COPD type (CMS/HCC) Coronary artery disease involving pechanga coronary artery of pechanga heart without angina pectoris (CMS/HCC) Primary hypertension ([facility]) Unspecified essential hypertension Class 3 severe obesity due to excess calories with serious comorbidity and body mass index (BMI) of 40.0 to 44.9 in adult ([facility]) Tobacco dependence Tobacco use disorder Cigarette nicotine dependence without complication Type 2 diabetes mellitus with diabetic polyneuropathy, with long-term current use of insulin (CMS/[facility])- Primary Parkinson's disease without dyskinesia, without mention of fluctuations (CMS/HCC) Primary hypertension (CMS/[facility]) Unspecified essential hypertension Coronary artery disease involving pechanga coronary artery of pechanga heart without angina pectoris (CMS/[facility]) Type 2 diabetes mellitus without complication, with long-term current use of insulin ([facility]) Class 3 severe obesity due to excess calories with serious comorbidity and body mass index (BMI) of 40.0 to 44.9 in adult ([facility]) Tobacco dependence Tobacco use disorder Mixed hyperlipidemia (CMS/HCC) Mixed hyperlipidemia Chronic obstructive pulmonary disease, unspecified COPD type (CMS/HCC) Current mild episode of major depressive disorder without prior episode (HCC) (CMS/HCC) Other insomnia Weakness of both lower extremities Coronary artery disease involving pechanga coronary artery of pechanga heart without angina pectoris (CMS/HCC)- Primary Mixed hyperlipidemia (CMS/HCC) Mixed hyperlipidemia documented in this encounter [facility] HealthcareEvaluation note* Diagnosis Type 2 diabetes mellitus without complication, with long-term current use of insulin (CMS/HCC)- Primary Major depressive disorder, single episode, mild (HCC) (CMS/HCC) Major depressive disorder, single episode, mild Parkinson's disease without dyskinesia, without mention of fluctuations (CMS/HCC) Type 2 diabetes mellitus with diabetic polyneuropathy, with long-term current use of insulin ([facility]) Chronic obstructive pulmonary disease, unspecified COPD type ([facility]/HCC) Coronary artery disease involving pechanga coronary artery of pechanga heart without angina pectoris ([facility]/HCC) Primary hypertension ([facility]/HCC) Unspecified essential hypertension Class 3 severe obesity due to excess calories with serious comorbidity and body mass index (BMI) of 40.0 to 44.9 in adult ([facility]) Tobacco dependence Tobacco use disorder Cigarette nicotine dependence without complication documented in this encounter [facility] HealthcareEvaluation note* Diagnosis Mixed hyperlipidemia ([facility])- Primary Mixed hyperlipidemia Hyperkalemia Hyperpotassemia documented in this encounter [facility] HealthcareEvaluation note* Diagnosis Type 2 diabetes mellitus with diabetic polyneuropathy, with long-term current use of insulin ([facility]) documented in this encounter [facility] HealthcareEvaluation note* Diagnosis Chronic obstructive pulmonary disease, unspecified COPD type ([facility]) Current mild episode of major depressive disorder without prior episode (HCC) ([facility]) Type 2 diabetes mellitus with diabetic polyneuropathy, with long-term current use of insulin ([facility]) Primary hypertension ([facility]) Unspecified essential hypertension Coronary artery disease involving pechanga coronary artery of pechanga heart without angina pectoris ([facility]) documented in this encounter [facility]Evaluation note* Diagnosis Coronary artery disease involving pechanga coronary artery of pechanga heart without angina pectoris ([facility]/HCC)- Primary Current mild episode of major depressive disorder without prior episode (HCC) ([facility]) documented in this encounter [facility]Evaluation note* Diagnosis Type 2 diabetes mellitus with diabetic polyneuropathy, with long-term current use of insulin ([facility]) documented in this encounter [facility]Evaluation note* Diagnosis Type 2 diabetes mellitus with diabetic polyneuropathy, with long-term current use of insulin ([facility])- Primary Peripheral polyneuropathy Coronary artery disease involving pechanga coronary artery of pechanga heart without angina pectoris ([facility]/HCC) Primary hypertension ([facility]) Unspecified essential hypertension Current mild episode of major depressive disorder without prior episode (HCC) ([facility]) Tobacco dependence Tobacco use disorder Class 3 severe obesity due to excess calories with serious comorbidity and body mass index (BMI) of 40.0 to 44.9 in adult ([facility]) Mixed hyperlipidemia ([facility]/HCC) Mixed hyperlipidemia DDD (degenerative disc disease), lumbar Degeneration of lumbar or lumbosacral intervertebral disc Simple chronic bronchitis ([facility]) Simple chronic bronchitis Type 2 diabetes mellitus without complication, with long-term current use of insulin ([facility])- Primary Primary hypertension ([facility]) Unspecified essential hypertension Coronary artery disease involving pechanga coronary artery of pechanga heart without angina pectoris ([facility]) Class 3 severe obesity due to excess calories with serious comorbidity and body mass index (BMI) of 40.0 to 44.9 in adult ([facility]) Screening for prostate cancer Special screening for malignant neoplasm of prostate Tobacco dependence Tobacco use disorder Mixed hyperlipidemia ([facility]) Mixed hyperlipidemia Type 2 diabetes mellitus with diabetic polyneuropathy, with long-term current use of insulin ([facility]) Lumbar radiculopathy, chronic Chronic obstructive pulmonary disease, unspecified COPD type ([facility]) DDD (degenerative disc disease), lumbar Degeneration of lumbar or lumbosacral intervertebral disc Type 2 diabetes mellitus without complication, with long-term current use of insulin ([facility])- Primary Major depressive disorder, single episode, mild (HCC) ([facility]) Major depressive disorder, single episode, mild Parkinson's disease without dyskinesia, without mention of fluctuations ([facility]) Type 2 diabetes mellitus with diabetic polyneuropathy, with long-term current use of insulin ([facility]) Chronic obstructive pulmonary disease, unspecified COPD type ([facility]) Coronary artery disease involving pechanga coronary artery of pechanga heart without angina pectoris ([facility]) Primary hypertension ([facility]) Unspecified essential hypertension Class 3 severe obesity due to excess calories with serious comorbidity and body mass index (BMI) of 40.0 to 44.9 in adult ([facility]) Tobacco dependence Tobacco use disorder Cigarette nicotine dependence without complication Type 2 diabetes mellitus with diabetic polyneuropathy, with long-term current use of insulin ([facility])- Primary Parkinson's disease without dyskinesia, without mention of fluctuations ([facility]) Primary hypertension ([facility]) Unspecified essential hypertension Coronary artery disease involving pechanga coronary artery of pechanga heart without angina pectoris ([facility]) Type 2 diabetes mellitus without complication, with long-term current use of insulin ([facility]) Class 3 severe obesity due to excess calories with serious comorbidity and body mass index (BMI) of 40.0 to 44.9 in adult ([facility]/HCC) Tobacco dependence Tobacco use disorder Mixed hyperlipidemia (CMS/HCC) Mixed hyperlipidemia Chronic obstructive pulmonary disease, unspecified COPD type (CMS/HCC) Current mild episode of major depressive disorder without prior episode (HCC) (CMS/HCC) Other insomnia Weakness of both lower extremities Coronary artery disease involving pechanga coronary artery of pechanga heart without angina pectoris (CMS/HCC)- Primary Mixed hyperlipidemia (CMS/HCC) Mixed hyperlipidemia DDD (degenerative disc disease), lumbar Degeneration of lumbar or lumbosacral intervertebral disc documented in this encounter [facility] HealthcareEvaluation note* Diagnosis Type 2 diabetes mellitus with diabetic polyneuropathy, with long-term current use of insulin (CMS/[facility])- Primary Peripheral polyneuropathy Coronary artery disease involving pechanga coronary artery of pechanga heart without angina pectoris (CMS/[facility]) Primary hypertension ([facility]) Unspecified essential hypertension Current mild episode of major depressive disorder without prior episode (HCC) ([facility]) Tobacco dependence Tobacco use disorder Class 3 severe obesity due to excess calories with serious comorbidity and body mass index (BMI) of 40.0 to 44.9 in adult ([facility]) Mixed hyperlipidemia ([facility]/HCC) Mixed hyperlipidemia DDD (degenerative disc disease), lumbar Degeneration of lumbar or lumbosacral intervertebral disc Simple chronic bronchitis ([facility]) Simple chronic bronchitis Type 2 diabetes mellitus without complication, with long-term current use of insulin ([facility])- Primary Primary hypertension ([facility]) Unspecified essential hypertension Coronary artery disease involving pechanga coronary artery of pechanga heart without angina pectoris (CMS/[facility]) Class 3 severe obesity due to excess calories with serious comorbidity and body mass index (BMI) of 40.0 to 44.9 in adult ([facility]) Screening for prostate cancer Special screening for malignant neoplasm of prostate Tobacco dependence Tobacco use disorder Mixed hyperlipidemia ([facility]/HCC) Mixed hyperlipidemia Type 2 diabetes mellitus with diabetic polyneuropathy, with long-term current use of insulin ([facility]) Lumbar radiculopathy, chronic Chronic obstructive pulmonary disease, unspecified COPD type (CMS/HCC) DDD (degenerative disc disease), lumbar Degeneration of lumbar or lumbosacral intervertebral disc Type 2 diabetes mellitus without complication, with long-term current use of insulin ([facility])- Primary Major depressive disorder, single episode, mild (HCC) ([facility]) Major depressive disorder, single episode, mild Parkinson's disease without dyskinesia, without mention of fluctuations ([facility]) Type 2 diabetes mellitus with diabetic polyneuropathy, with long-term current use of insulin ([facility]) Chronic obstructive pulmonary disease, unspecified COPD type (CMS/[facility]) Coronary artery disease involving pechanga coronary artery of pechanga heart without angina pectoris (CMS/[facility]) Primary hypertension ([facility]) Unspecified essential hypertension Class 3 severe obesity due to excess calories with serious comorbidity and body mass index (BMI) of 40.0 to 44.9 in adult ([facility]) Tobacco dependence Tobacco use disorder Cigarette nicotine dependence without complication Type 2 diabetes mellitus with diabetic polyneuropathy, with long-term current use of insulin (CMS/[facility])- Primary Parkinson's disease without dyskinesia, without mention of fluctuations ([facility]) Primary hypertension ([facility]) Unspecified essential hypertension Coronary artery disease involving pechanga coronary artery of pechanga heart without angina pectoris ([facility]) Type 2 diabetes mellitus without complication, with long-term current use of insulin ([facility]) Class 3 severe obesity due to excess calories with serious comorbidity and body mass index (BMI) of 40.0 to 44.9 in adult ([facility]) Tobacco dependence Tobacco use disorder Mixed hyperlipidemia (CMS/HCC) Mixed hyperlipidemia Chronic obstructive pulmonary disease, unspecified COPD type (CMS/[facility]) Current mild episode of major depressive disorder without prior episode (HCC) ([facility]) Other insomnia Weakness of both lower extremities Coronary artery disease involving pechanga coronary artery of pechanga heart without angina pectoris (CMS/HCC)- Primary Mixed hyperlipidemia (CMS/HCC) Mixed hyperlipidemia Right hemiparesis ([facility])- Primary Unspecified hemiplegia affecting unspecified side Weakness of both lower extremities Sensory deficit, right TONYA (obstructive sleep apnea) Obstructive sleep apnea (adult) (pediatric) Diabetic peripheral neuropathy ([facility]) Type II or unspecified type diabetes mellitus with neurological manifestations, not stated as uncontrolled documented in this encounter [facility] HealthcareEvaluation note* Diagnosis Type 2 diabetes mellitus with diabetic polyneuropathy, with long-term current use of insulin ([facility])- Primary Peripheral polyneuropathy Coronary artery disease involving pechanga coronary artery of pechanga heart without angina pectoris (CMS/[facility]) Primary hypertension ([facility]) Unspecified essential hypertension Current mild episode of major depressive disorder without prior episode (HCC) ([facility]) Tobacco dependence Tobacco use disorder Class 3 severe obesity due to excess calories with serious comorbidity and body mass index (BMI) of 40.0 to 44.9 in adult ([facility]) Mixed hyperlipidemia ([facility]) Mixed hyperlipidemia DDD (degenerative disc disease), lumbar Degeneration of lumbar or lumbosacral intervertebral disc Simple chronic bronchitis ([facility]) Simple chronic bronchitis Type 2 diabetes mellitus without complication, with long-term current use of insulin ([facility])- Primary Primary hypertension ([facility]) Unspecified essential hypertension Coronary artery disease involving pechanga coronary artery of pechanga heart without angina pectoris ([facility]) Class 3 severe obesity due to excess calories with serious comorbidity and body mass index (BMI) of 40.0 to 44.9 in adult ([facility]) Screening for prostate cancer Special screening for malignant neoplasm of prostate Tobacco dependence Tobacco use disorder Mixed hyperlipidemia ([facility]) Mixed hyperlipidemia Type 2 diabetes mellitus with diabetic polyneuropathy, with long-term current use of insulin ([facility]) Lumbar radiculopathy, chronic Chronic obstructive pulmonary disease, unspecified COPD type ([facility]) DDD (degenerative disc disease), lumbar Degeneration of lumbar or lumbosacral intervertebral disc Type 2 diabetes mellitus without complication, with long-term current use of insulin ([facility])- Primary Major depressive disorder, single episode, mild ([facility]) ([facility]) Major depressive disorder, single episode, mild Parkinson's disease without dyskinesia, without mention of fluctuations ([facility]) Type 2 diabetes mellitus with diabetic polyneuropathy, with long-term current use of insulin ([facility]) Chronic obstructive pulmonary disease, unspecified COPD type ([facility]) Coronary artery disease involving pechanga coronary artery of pechanga heart without angina pectoris ([facility]) Primary hypertension ([facility]) Unspecified essential hypertension Class 3 severe obesity due to excess calories with serious comorbidity and body mass index (BMI) of 40.0 to 44.9 in adult ([facility]) Tobacco dependence Tobacco use disorder Cigarette nicotine dependence without complication Type 2 diabetes mellitus with diabetic polyneuropathy, with long-term current use of insulin ([facility])- Primary Parkinson's disease without dyskinesia, without mention of fluctuations ([facility]) Primary hypertension ([facility]) Unspecified essential hypertension Coronary artery disease involving pechanga coronary artery of pechanga heart without angina pectoris ([facility]) Type 2 diabetes mellitus without complication, with long-term current use of insulin ([facility]) Class 3 severe obesity due to excess calories with serious comorbidity and body mass index (BMI) of 40.0 to 44.9 in adult (CMS/HCC) Tobacco dependence Tobacco use disorder Mixed hyperlipidemia (CMS/HCC) Mixed hyperlipidemia Chronic obstructive pulmonary disease, unspecified COPD type (CMS/HCC) Current mild episode of major depressive disorder without prior episode (HCC) (CMS/HCC) Other insomnia Weakness of both lower extremities Coronary artery disease involving pechanga coronary artery of pechanga heart without angina pectoris (CMS/HCC)- Primary Mixed hyperlipidemia (CMS/HCC) Mixed hyperlipidemia Coronary artery disease involving pechanga coronary artery of pechanga heart without angina pectoris (CMS/HCC)- Primary Primary hypertension (CMS/HCC) Unspecified essential hypertension Type 2 diabetes mellitus without complication, with long-term current use of insulin ([facility]) documented in this encounter [facility] HealthcareEvaluation note* Diagnosis Type 2 diabetes mellitus with diabetic polyneuropathy, with long-term current use of insulin (CMS/[facility])- Primary Peripheral polyneuropathy Coronary artery disease involving pechanga coronary artery of pechanga heart without angina pectoris (CMS/HCC) Primary hypertension ([facility]) Unspecified essential hypertension Current mild episode of major depressive disorder without prior episode (HCC) ([facility]/HCC) Tobacco dependence Tobacco use disorder Class 3 severe obesity due to excess calories with serious comorbidity and body mass index (BMI) of 40.0 to 44.9 in adult ([facility]) Mixed hyperlipidemia (CMS/HCC) Mixed hyperlipidemia DDD (degenerative disc disease), lumbar Degeneration of lumbar or lumbosacral intervertebral disc Simple chronic bronchitis ([facility]/HCC) Simple chronic bronchitis Type 2 diabetes mellitus without complication, with long-term current use of insulin ([facility])- Primary Primary hypertension ([facility]) Unspecified essential hypertension Coronary artery disease involving pechanga coronary artery of pechanga heart without angina pectoris (CMS/HCC) Class 3 severe obesity due to excess calories with serious comorbidity and body mass index (BMI) of 40.0 to 44.9 in adult ([facility]) Screening for prostate cancer Special screening for malignant neoplasm of prostate Tobacco dependence Tobacco use disorder Mixed hyperlipidemia (CMS/HCC) Mixed hyperlipidemia Type 2 diabetes mellitus with diabetic polyneuropathy, with long-term current use of insulin ([facility]) Lumbar radiculopathy, chronic Chronic obstructive pulmonary disease, unspecified COPD type (CMS/HCC) DDD (degenerative disc disease), lumbar Degeneration of lumbar or lumbosacral intervertebral disc Type 2 diabetes mellitus without complication, with long-term current use of insulin (CMS/HCC)- Primary Major depressive disorder, single episode, mild (HCC) (CMS/HCC) Major depressive disorder, single episode, mild Parkinson's disease without dyskinesia, without mention of fluctuations (CMS/HCC) Type 2 diabetes mellitus with diabetic polyneuropathy, with long-term current use of insulin (CMS/HCC) Chronic obstructive pulmonary disease, unspecified COPD type (CMS/HCC) Coronary artery disease involving pechanga coronary artery of pechanga heart without angina pectoris (CMS/HCC) Primary hypertension (CMS/HCC) Unspecified essential hypertension Class 3 severe obesity due to excess calories with serious comorbidity and body mass index (BMI) of 40.0 to 44.9 in adult (CMS/HCC) Tobacco dependence Tobacco use disorder Cigarette nicotine dependence without complication Type 2 diabetes mellitus with diabetic polyneuropathy, with long-term current use of insulin (CMS/HCC)- Primary Parkinson's disease without dyskinesia, without mention of fluctuations (CMS/HCC) Primary hypertension (CMS/HCC) Unspecified essential hypertension Coronary artery disease involving pechanga coronary artery of pechanga heart without angina pectoris (CMS/HCC) Type 2 diabetes mellitus without complication, with long-term current use of insulin (CMS/HCC) Class 3 severe obesity due to excess calories with serious comorbidity and body mass index (BMI) of 40.0 to 44.9 in adult (CMS/HCC) Tobacco dependence Tobacco use disorder Mixed hyperlipidemia (CMS/HCC) Mixed hyperlipidemia Chronic obstructive pulmonary disease, unspecified COPD type (CMS/HCC) Current mild episode of major depressive disorder without prior episode (HCC) (CMS/HCC) Other insomnia Weakness of both lower extremities Coronary artery disease involving pechanga coronary artery of pechanga heart without angina pectoris (CMS/HCC)- Primary Mixed hyperlipidemia (CMS/HCC) Mixed hyperlipidemia Lumbar radiculopathy, chronic- Primary Type 2 diabetes mellitus with diabetic polyneuropathy, with long-term current use of insulin (CMS/HCC) Painful diabetic neuropathy (CMS/HCC) Type II or unspecified type diabetes mellitus with neurological manifestations, not stated as uncontrolled Current mild episode of major depressive disorder without prior episode (HCC) (CMS/HCC) documented in this encounter [facility] HealthcareEvaluation note* Diagnosis Type 2 diabetes mellitus with diabetic polyneuropathy, with long-term current use of insulin (CMS/HCC)- Primary Peripheral polyneuropathy Coronary artery disease involving pechanga coronary artery of pechanga heart without angina pectoris ([facility]) Primary hypertension ([facility]) Unspecified essential hypertension Current mild episode of major depressive disorder without prior episode (HCC) ([facility]) Tobacco dependence Tobacco use disorder Class 3 severe obesity due to excess calories with serious comorbidity and body mass index (BMI) of 40.0 to 44.9 in adult ([facility]) Mixed hyperlipidemia ([facility]) Mixed hyperlipidemia DDD (degenerative disc disease), lumbar Degeneration of lumbar or lumbosacral intervertebral disc Simple chronic bronchitis ([facility]) Simple chronic bronchitis Type 2 diabetes mellitus without complication, with long-term current use of insulin ([facility])- Primary Primary hypertension ([facility]) Unspecified essential hypertension Coronary artery disease involving pechanga coronary artery of pechanga heart without angina pectoris ([facility]) Class 3 severe obesity due to excess calories with serious comorbidity and body mass index (BMI) of 40.0 to 44.9 in adult ([facility]) Screening for prostate cancer Special screening for malignant neoplasm of prostate Tobacco dependence Tobacco use disorder Mixed hyperlipidemia ([facility]) Mixed hyperlipidemia Type 2 diabetes mellitus with diabetic polyneuropathy, with long-term current use of insulin ([facility]) Lumbar radiculopathy, chronic Chronic obstructive pulmonary disease, unspecified COPD type ([facility]) DDD (degenerative disc disease), lumbar Degeneration of lumbar or lumbosacral intervertebral disc Type 2 diabetes mellitus without complication, with long-term current use of insulin ([facility])- Primary Major depressive disorder, single episode, mild (HCC) ([facility]) Major depressive disorder, single episode, mild Parkinson's disease without dyskinesia, without mention of fluctuations ([facility]) Type 2 diabetes mellitus with diabetic polyneuropathy, with long-term current use of insulin ([facility]) Chronic obstructive pulmonary disease, unspecified COPD type ([facility]) Coronary artery disease involving pechanga coronary artery of pechanga heart without angina pectoris ([facility]) Primary hypertension ([facility]) Unspecified essential hypertension Class 3 severe obesity due to excess calories with serious comorbidity and body mass index (BMI) of 40.0 to 44.9 in adult ([facility]) Tobacco dependence Tobacco use disorder Cigarette nicotine dependence without complication Type 2 diabetes mellitus with diabetic polyneuropathy, with long-term current use of insulin ([facility])- Primary Parkinson's disease without dyskinesia, without mention of fluctuations ([facility]) Primary hypertension (CMS/HCC) Unspecified essential hypertension Coronary artery disease involving pechanga coronary artery of pechanga heart without angina pectoris (CMS/HCC) Type 2 diabetes mellitus without complication, with long-term current use of insulin (CMS/[facility]) Class 3 severe obesity due to excess calories with serious comorbidity and body mass index (BMI) of 40.0 to 44.9 in adult ([facility]) Tobacco dependence Tobacco use disorder Mixed hyperlipidemia (CMS/HCC) Mixed hyperlipidemia Chronic obstructive pulmonary disease, unspecified COPD type (CMS/[facility]) Current mild episode of major depressive disorder without prior episode (HCC) (CMS/HCC) Other insomnia Weakness of both lower extremities Coronary artery disease involving pechanga coronary artery of pechanga heart without angina pectoris (CMS/HCC)- Primary Mixed hyperlipidemia (CMS/HCC) Mixed hyperlipidemia Coronary artery disease involving pechanga coronary artery of pechanga heart without angina pectoris (CMS/HCC) Mixed hyperlipidemia (CMS/HCC) Mixed hyperlipidemia documented in this encounter [facility] HealthcareEvaluation note* Diagnosis Type 2 diabetes mellitus with diabetic polyneuropathy, with long-term current use of insulin ([facility])- Primary Peripheral polyneuropathy Coronary artery disease involving pechanga coronary artery of pechanga heart without angina pectoris (CMS/HCC) Primary hypertension (CMS/[facility]) Unspecified essential hypertension Current mild episode of major depressive disorder without prior episode (HCC) ([facility]) Tobacco dependence Tobacco use disorder Class 3 severe obesity due to excess calories with serious comorbidity and body mass index (BMI) of 40.0 to 44.9 in adult ([facility]) Mixed hyperlipidemia ([facility]) Mixed hyperlipidemia DDD (degenerative disc disease), lumbar Degeneration of lumbar or lumbosacral intervertebral disc Simple chronic bronchitis ([facility]/HCC) Simple chronic bronchitis Type 2 diabetes mellitus without complication, with long-term current use of insulin ([facility])- Primary Primary hypertension ([facility]) Unspecified essential hypertension Coronary artery disease involving pechanga coronary artery of pechanga heart without angina pectoris (CMS/HCC) Class 3 severe obesity due to excess calories with serious comorbidity and body mass index (BMI) of 40.0 to 44.9 in adult ([facility]) Screening for prostate cancer Special screening for malignant neoplasm of prostate Tobacco dependence Tobacco use disorder Mixed hyperlipidemia (CMS/HCC) Mixed hyperlipidemia Type 2 diabetes mellitus with diabetic polyneuropathy, with long-term current use of insulin ([facility]) Lumbar radiculopathy, chronic Chronic obstructive pulmonary disease, unspecified COPD type ([facility]) DDD (degenerative disc disease), lumbar Degeneration of lumbar or lumbosacral intervertebral disc Type 2 diabetes mellitus without complication, with long-term current use of insulin ([facility])- Primary Major depressive disorder, single episode, mild (HCC) ([facility]) Major depressive disorder, single episode, mild Parkinson's disease without dyskinesia, without mention of fluctuations ([facility]) Type 2 diabetes mellitus with diabetic polyneuropathy, with long-term current use of insulin ([facility]) Chronic obstructive pulmonary disease, unspecified COPD type ([facility]) Coronary artery disease involving pechanga coronary artery of pechanga heart without angina pectoris ([facility]) Primary hypertension ([facility]) Unspecified essential hypertension Class 3 severe obesity due to excess calories with serious comorbidity and body mass index (BMI) of 40.0 to 44.9 in adult ([facility]) Tobacco dependence Tobacco use disorder Cigarette nicotine dependence without complication Type 2 diabetes mellitus with diabetic polyneuropathy, with long-term current use of insulin ([facility])- Primary Parkinson's disease without dyskinesia, without mention of fluctuations ([facility]) Primary hypertension ([facility]) Unspecified essential hypertension Coronary artery disease involving pechanga coronary artery of pechanga heart without angina pectoris ([facility]) Type 2 diabetes mellitus without complication, with long-term current use of insulin ([facility]) Class 3 severe obesity due to excess calories with serious comorbidity and body mass index (BMI) of 40.0 to 44.9 in adult ([facility]) Tobacco dependence Tobacco use disorder Mixed hyperlipidemia ([facility]) Mixed hyperlipidemia Chronic obstructive pulmonary disease, unspecified COPD type ([facility]) Current mild episode of major depressive disorder without prior episode (HCC) ([facility]) Other insomnia Weakness of both lower extremities Coronary artery disease involving pechanga coronary artery of pechanga heart without angina pectoris ([facility])- Primary Mixed hyperlipidemia ([facility]) Mixed hyperlipidemia Type 2 diabetes mellitus with diabetic polyneuropathy, with long-term current use of insulin ([facility])- Primary Morbid (severe) obesity due to excess calories ([facility]) Mixed hyperlipidemia (CMS/[facility]) Mixed hyperlipidemia Body mass index (BMI) 38.0-38.9, adult Chronic obstructive pulmonary disease, unspecified ([facility]) Weakness of both lower extremities Coronary artery disease involving pechanga coronary artery of pechanga heart without angina pectoris ([facility]/HCC) Primary hypertension ([facility]) Unspecified essential hypertension Class 3 severe obesity due to excess calories with serious comorbidity and body mass index (BMI) of 40.0 to 44.9 in adult ([facility]) Type 2 diabetes mellitus without complication, with long-term current use of insulin ([facility]) Cigarette nicotine dependence without complication Elevated alkaline phosphatase level Major depressive disorder, single episode, mild (HCC) ([facility]) Major depressive disorder, single episode, mild Other insomnia documented in this encounter [facility] HealthcareEvaluation note* Diagnosis Type 2 diabetes mellitus with diabetic polyneuropathy, with long-term current use of insulin ([facility])- Primary Peripheral polyneuropathy Coronary artery disease involving pechanga coronary artery of pechanga heart without angina pectoris ([facility]) Primary hypertension ([facility]) Unspecified essential hypertension Current mild episode of major depressive disorder without prior episode (HCC) ([facility]) Tobacco dependence Tobacco use disorder Class 3 severe obesity due to excess calories with serious comorbidity and body mass index (BMI) of 40.0 to 44.9 in adult ([facility]) Mixed hyperlipidemia ([facility]) Mixed hyperlipidemia DDD (degenerative disc disease), lumbar Degeneration of lumbar or lumbosacral intervertebral disc Simple chronic bronchitis ([facility]) Simple chronic bronchitis Type 2 diabetes mellitus without complication, with long-term current use of insulin ([facility])- Primary Primary hypertension ([facility]) Unspecified essential hypertension Coronary artery disease involving pechanga coronary artery of pechanga heart without angina pectoris ([facility]) Class 3 severe obesity due to excess calories with serious comorbidity and body mass index (BMI) of 40.0 to 44.9 in adult ([facility]) Screening for prostate cancer Special screening for malignant neoplasm of prostate Tobacco dependence Tobacco use disorder Mixed hyperlipidemia ([facility]) Mixed hyperlipidemia Type 2 diabetes mellitus with diabetic polyneuropathy, with long-term current use of insulin ([facility]) Lumbar radiculopathy, chronic Chronic obstructive pulmonary disease, unspecified COPD type ([facility]) DDD (degenerative disc disease), lumbar Degeneration of lumbar or lumbosacral intervertebral disc Type 2 diabetes mellitus without complication, with long-term current use of insulin ([facility])- Primary Major depressive disorder, single episode, mild (HCC) ([facility]) Major depressive disorder, single episode, mild Parkinson's disease without dyskinesia, without mention of fluctuations ([facility]) Type 2 diabetes mellitus with diabetic polyneuropathy, with long-term current use of insulin ([facility]) Chronic obstructive pulmonary disease, unspecified COPD type ([facility]) Coronary artery disease involving pechanga coronary artery of pechanga heart without angina pectoris ([facility]) Primary hypertension ([facility]) Unspecified essential hypertension Class 3 severe obesity due to excess calories with serious comorbidity and body mass index (BMI) of 40.0 to 44.9 in adult ([facility]) Tobacco dependence Tobacco use disorder Cigarette nicotine dependence without complication Type 2 diabetes mellitus with diabetic polyneuropathy, with long-term current use of insulin ([facility])- Primary Parkinson's disease without dyskinesia, without mention of fluctuations ([facility]) Primary hypertension ([facility]) Unspecified essential hypertension Coronary artery disease involving pechanga coronary artery of pechanga heart without angina pectoris ([facility]) Type 2 diabetes mellitus without complication, with long-term current use of insulin ([facility]) Class 3 severe obesity due to excess calories with serious comorbidity and body mass index (BMI) of 40.0 to 44.9 in adult ([facility]) Tobacco dependence Tobacco use disorder Mixed hyperlipidemia ([facility]) Mixed hyperlipidemia Chronic obstructive pulmonary disease, unspecified COPD type ([facility]) Current mild episode of major depressive disorder without prior episode (HCC) ([facility]) Other insomnia Weakness of both lower extremities Coronary artery disease involving pechanga coronary artery of pechanga heart without angina pectoris ([facility])- Primary Mixed hyperlipidemia ([facility]) Mixed hyperlipidemia Type 2 diabetes mellitus with diabetic polyneuropathy, with long-term current use of insulin ([facility])- Primary Morbid (severe) obesity due to excess calories ([facility]) Mixed hyperlipidemia ([facility]) Mixed hyperlipidemia Body mass index (BMI) 38.0-38.9, adult Chronic obstructive pulmonary disease, unspecified ([facility]) Weakness of both lower extremities Coronary artery disease involving pechanga coronary artery of pechanga heart without angina pectoris ([facility]) Primary hypertension ([facility]) Unspecified essential hypertension Class 3 severe obesity due to excess calories with serious comorbidity and body mass index (BMI) of 40.0 to 44.9 in adult ([facility]) Type 2 diabetes mellitus without complication, with long-term current use of insulin (CMS/HCC) Cigarette nicotine dependence without complication Elevated alkaline phosphatase level Major depressive disorder, single episode, mild (HCC) (CMS/HCC) Major depressive disorder, single episode, mild Other insomnia Mixed hyperlipidemia (CMS/HCC) Mixed hyperlipidemia Chronic obstructive pulmonary disease, unspecified COPD type (CMS/HCC) Current mild episode of major depressive disorder without prior episode (HCC) (CMS/HCC) Coronary artery disease involving pechanga coronary artery of pechanga heart without angina pectoris (CMS/HCC) Type 2 diabetes mellitus without complication, with long-term current use of insulin (CMS/HCC) Primary hypertension (CMS/HCC) Unspecified essential hypertension Type 2 diabetes mellitus with diabetic polyneuropathy, with long-term current use of insulin (CMS/HCC) Other insomnia Lumbar radiculopathy, chronic Painful diabetic neuropathy (CMS/HCC) Type II or unspecified type diabetes mellitus with neurological manifestations, not stated as uncontrolled documented in this encounter [facility] HealthcareEvaluation note* Diagnosis Type 2 diabetes mellitus with diabetic polyneuropathy, with long-term current use of insulin (CMS/HCC)- Primary Peripheral polyneuropathy Coronary artery disease involving pechanga coronary artery of pechanga heart without angina pectoris (CMS/HCC) Primary hypertension (CMS/HCC) Unspecified essential hypertension Current mild episode of major depressive disorder without prior episode (HCC) (CMS/HCC) Tobacco dependence Tobacco use disorder Class 3 severe obesity due to excess calories with serious comorbidity and body mass index (BMI) of 40.0 to 44.9 in adult Mixed hyperlipidemia (CMS/HCC) Mixed hyperlipidemia DDD (degenerative disc disease), lumbar Degeneration of lumbar or lumbosacral intervertebral disc Simple chronic bronchitis (CMS/HCC) Simple chronic bronchitis Type 2 diabetes mellitus without complication, with long-term current use of insulin- Primary Primary hypertension (CMS/HCC) Unspecified essential hypertension Coronary artery disease involving pechanga coronary artery of pechanga heart without angina pectoris (CMS/HCC) Class 3 severe obesity due to excess calories with serious comorbidity and body mass index (BMI) of 40.0 to 44.9 in adult Screening for prostate cancer Special screening for malignant neoplasm of prostate Tobacco dependence Tobacco use disorder Mixed hyperlipidemia (CMS/HCC) Mixed hyperlipidemia Type 2 diabetes mellitus with diabetic polyneuropathy, with long-term current use of insulin (CMS/HCC) Lumbar radiculopathy, chronic Chronic obstructive pulmonary disease, unspecified COPD type (CMS/HCC) DDD (degenerative disc disease), lumbar Degeneration of lumbar or lumbosacral intervertebral disc Type 2 diabetes mellitus without complication, with long-term current use of insulin- Primary Major depressive disorder, single episode, mild (HCC) (CMS/HCC) Major depressive disorder, single episode, mild Parkinson's disease without dyskinesia, without mention of fluctuations (CMS/HCC) Type 2 diabetes mellitus with diabetic polyneuropathy, with long-term current use of insulin (CMS/HCC) Chronic obstructive pulmonary disease, unspecified COPD type (CMS/HCC) Coronary artery disease involving pechanga coronary artery of pechanga heart without angina pectoris (CMS/HCC) Primary hypertension (CMS/HCC) Unspecified essential hypertension Class 3 severe obesity due to excess calories with serious comorbidity and body mass index (BMI) of 40.0 to 44.9 in adult Tobacco dependence Tobacco use disorder Cigarette nicotine dependence without complication Type 2 diabetes mellitus with diabetic polyneuropathy, with long-term current use of insulin (CMS/HCC)- Primary Parkinson's disease without dyskinesia, without mention of fluctuations (CMS/HCC) Primary hypertension (CMS/HCC) Unspecified essential hypertension Coronary artery disease involving pechanga coronary artery of pechanga heart without angina pectoris (CMS/HCC) Type 2 diabetes mellitus without complication, with long-term current use of insulin Class 3 severe obesity due to excess calories with serious comorbidity and body mass index (BMI) of 40.0 to 44.9 in adult Tobacco dependence Tobacco use disorder Mixed hyperlipidemia (CMS/HCC) Mixed hyperlipidemia Chronic obstructive pulmonary disease, unspecified COPD type (CMS/HCC) Current mild episode of major depressive disorder without prior episode (HCC) (CMS/HCC) Other insomnia Weakness of both lower extremities Coronary artery disease involving pechanga coronary artery of pechanga heart without angina pectoris (CMS/HCC)- Primary Mixed hyperlipidemia (CMS/HCC) Mixed hyperlipidemia Type 2 diabetes mellitus with diabetic polyneuropathy, with long-term current use of insulin (CMS/HCC)- Primary Morbid (severe) obesity due to excess calories (CMS/HCC) Mixed hyperlipidemia (CMS/HCC) Mixed hyperlipidemia Body mass index (BMI) 38.0-38.9, adult Chronic obstructive pulmonary disease, unspecified Weakness of both lower extremities Coronary artery disease involving pechanga coronary artery of pechanga heart without angina pectoris (CMS/HCC) Primary hypertension (CMS/HCC) Unspecified essential hypertension Class 3 severe obesity due to excess calories with serious comorbidity and body mass index (BMI) of 40.0 to 44.9 in adult Type 2 diabetes mellitus without complication, with long-term current use of insulin Cigarette nicotine dependence without complication Elevated alkaline phosphatase level Major depressive disorder, single episode, mild (HCC) ([facility]) Major depressive disorder, single episode, mild Other insomnia Lumbar radiculopathy, chronic documented in this encounter [facility] HealthcareEvaluation note* Diagnosis Type 2 diabetes mellitus with diabetic polyneuropathy, with long-term current use of insulin (HCC)- Primary Peripheral polyneuropathy Coronary artery disease involving pechanga coronary artery of pechanga heart without angina pectoris Primary hypertension Unspecified essential hypertension Current mild episode of major depressive disorder without prior episode Tobacco dependence Tobacco use disorder Class 3 severe obesity due to excess calories with serious comorbidity and body mass index (BMI) of 40.0 to 44.9 in adult ([facility]) Mixed hyperlipidemia Mixed hyperlipidemia DDD (degenerative disc disease), lumbar Degeneration of lumbar or lumbosacral intervertebral disc Simple chronic bronchitis (HCC) Simple chronic bronchitis Type 2 diabetes mellitus without complication, with long-term current use of insulin (HCC)- Primary Primary hypertension Unspecified essential hypertension Coronary artery disease involving pechanga coronary artery of pechanga heart without angina pectoris Class 3 severe obesity due to excess calories with serious comorbidity and body mass index (BMI) of 40.0 to 44.9 in adult ([facility]) Screening for prostate cancer Special screening for malignant neoplasm of prostate Tobacco dependence Tobacco use disorder Mixed hyperlipidemia Mixed hyperlipidemia Type 2 diabetes mellitus with diabetic polyneuropathy, with long-term current use of insulin (HCC) Lumbar radiculopathy, chronic Chronic obstructive pulmonary disease, unspecified COPD type (HCC) DDD (degenerative disc disease), lumbar Degeneration of lumbar or lumbosacral intervertebral disc Type 2 diabetes mellitus without complication, with long-term current use of insulin (HCC)- Primary Major depressive disorder, single episode, mild Major depressive disorder, single episode, mild Parkinson's disease without dyskinesia, without mention of fluctuations (HCC) Type 2 diabetes mellitus with diabetic polyneuropathy, with long-term current use of insulin (HCC) Chronic obstructive pulmonary disease, unspecified COPD type (HCC) Coronary artery disease involving pechanga coronary artery of pechanga heart without angina pectoris Primary hypertension Unspecified essential hypertension Class 3 severe obesity due to excess calories with serious comorbidity and body mass index (BMI) of 40.0 to 44.9 in adult ([facility]) Tobacco dependence Tobacco use disorder Cigarette nicotine dependence without complication Type 2 diabetes mellitus with diabetic polyneuropathy, with long-term current use of insulin ([facility])- Primary Parkinson's disease without dyskinesia, without mention of fluctuations ([facility]) Primary hypertension Unspecified essential hypertension Coronary artery disease involving pechanga coronary artery of pechanga heart without angina pectoris Type 2 diabetes mellitus without complication, with long-term current use of insulin ([facility]) Class 3 severe obesity due to excess calories with serious comorbidity and body mass index (BMI) of 40.0 to 44.9 in adult ([facility]) Tobacco dependence Tobacco use disorder Mixed hyperlipidemia Mixed hyperlipidemia Chronic obstructive pulmonary disease, unspecified COPD type (HCC) Current mild episode of major depressive disorder without prior episode Other insomnia Weakness of both lower extremities Coronary artery disease involving pechanga coronary artery of pechanga heart without angina pectoris- Primary Mixed hyperlipidemia Mixed hyperlipidemia Type 2 diabetes mellitus with diabetic polyneuropathy, with long-term current use of insulin ([facility])- Primary Morbid (severe) obesity due to excess calories ([facility]) Mixed hyperlipidemia Mixed hyperlipidemia Body mass index (BMI) 38.0-38.9, adult Chronic obstructive pulmonary disease, unspecified (HCC) Weakness of both lower extremities Coronary artery disease involving pechanga coronary artery of pechanga heart without angina pectoris Primary hypertension Unspecified essential hypertension Class 3 severe obesity due to excess calories with serious comorbidity and body mass index (BMI) of 40.0 to 44.9 in adult ([facility]) Type 2 diabetes mellitus without complication, with long-term current use of insulin ([facility]) Cigarette nicotine dependence without complication Elevated alkaline phosphatase level Major depressive disorder, single episode, mild Major depressive disorder, single episode, mild Other insomnia Coronary artery disease involving pechanga coronary artery of pechanga heart without angina pectoris Mixed hyperlipidemia Mixed hyperlipidemia [facility]Not on filedocumented in this encounterUC [facility] SystemInstructionsNot on filedocumented in this encounterPark[facility] Chief Complaint and Reason for Visit Chief Complaint lumbar radiculpathy Advance Directives Advance Directive Response Recorded Date/ Time Advance Directives No October 24 023 12:15pm Summary Purpose Family History No Family History Records FoundNo Family History Records FoundNo Family History Records Found Reason for Referral Specialty Diagnoses / Procedures Referred By Contac t Referred To Contact Diagnoses Tobacco dependence Cigarette nicotine dependence without complication Procedures CT lung screening low dose Lenore Abad NP [address] [place] [address] Referral ID Status Reason Start Date Expiration Date V isits Requested Visits Authorized [id number] Pending Review 03/28/2024 09/24/2024 1 1 Specialty Diagnoses / Procedures Referred By Contac t Referred To Contact Diagnoses Type 2 diabetes mellitus with diabetic polyneuropathy, with long-term current use of insulin ([facility]) Lenore Abad NP [address] [place] [address] Referral ID Status Reason Start Date Expiration Date V isits Requested Visits Authorized [id number] Pending Review 1 1 Specialty Diagnoses / Procedures Referred By Contac t Referred To Contact Diagnoses Chronic obstructive pulmonary disease, unspecified COPD type ([facility]) Lenore Abad NP [address] [place] [address] Referral ID Status Reason Start Date Expiration Date V isits Requested Visits Authorized [id number] Pending Review 1 1 Additional Source Comments Care Teams (unrecognized sec tion and content) Team Status: Active Member Role Status Dates NON STAFF Primary Care Provider Active Team Status: Inactive Member Role Status Dates Maria Teresa Mcneil Attending Provider Active NON STAFF Primary Care Provider 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 Relationship Specialty Start Date End Date Hung Espinoza MD [address] [place] [phone] PCP - General Family Medicine 12/10/23 Lenore Abad NP [address] [place] [address] Nurse Practitioner Family Medicine 12/10/23 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 Machine Operator Relationship Specialty Start Date End Date Hung Espinoza MD [address] [place] [address] PCP - General Family Medicine 12/10/23 Lenore Abad NP [address] [place] [address] Nurse Practitioner Family Medicine 12/10/23 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 Machine Operator Relationship Specialty Start Date End Date Hung Espinoza MD [address] [place] [address] PCP - General Family Medicine 12/10/23 Lenore Abad NP [address] [place] [address] Nurse Practitioner Family Medicine 12/10/23 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 Machine Operator Relationship Specialty Start Date End Date Hung Espinoza MD [address] [place] [address] PCP - General Family Medicine 12/10/23 Lenore Abad NP [address] [place] [address] Nurse Practitioner Family Medicine 12/10/23 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 Machine Operator Relationship Specialty Start Date End Date Hung Espinoza MD [address] [place] [address] PCP - General Family Medicine 12/10/23 Lenore Abad NP [address] [place] [address] Nurse Practitioner Family Medicine 12/10/23 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 Machine Operator Relationship Specialty Start Date End Date Hung Espinoza MD [address] [place] [address] PCP - General Family Medicine 12/10/23 Lenore Abad NP [address] [place] [address] Nurse Practitioner Family Medicine 12/10/23 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 Machine 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 Relationship Specialty Start Date End Date Hung Espinoza MD [address] [place] [address] PCP - General Family Medicine 12/10/23 Lenore Abad NP [address] [place] [address] Nurse Practitioner Family Medicine 12/10/23 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 Machine 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 Relationship Specialty Start Date End Date Hung Espinoza MD [address] [place] [address] PCP - General Family Medicine 12/10/23 Lenore Abad NP [address] [place] [address] Nurse Practitioner Family Medicine 12/10/23 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 Machine 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 Relationship Specialty Start Date End Date Hung Espinoza MD [address] [place] [address] PCP - General Family Medicine 12/10/23 Lenore Abad NP [address] [place] [address] Nurse Practitioner Family Medicine 12/10/23 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 Machine Operator Relationship Specialty Start Date End Date Naderer, Hung, MD [address] [place] [address] PCP - General Family Medicine 12/10/23 Lenore Abad NP [address] [place] [address] Nurse Practitioner Family Medicine 12/10/23 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 Machine Operator Relationship Specialty Start Date End Date Hung Espinoza MD [address] [place] [address] PCP - General Family Medicine 12/10/23 Lenore Abad NP [address] [place] [address] Nurse Practitioner Family Medicine 12/10/23 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 Machine 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 Relationship Specialty Start Date End Date Hung Espinoza MD [address] [place] [address] PCP - General Family Medicine 12/10/23 Lenore Abad NP [address] [place] [address] Nurse Practitioner Family Medicine 12/10/23 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 Machine 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 Relationship Specialty Start Date End Date Hung Espinoza MD [address] [place] [address] PCP - General Family Medicine 12/10/23 Lenore Abad NP [address] [place] [address] Nurse Practitioner Family Medicine 12/10/23 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 Machine 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 Relationship Specialty Start Date End Date Hung Espinoza MD [address] [place] [address] PCP - General Family Medicine 12/10/23 Lenore Abad NP [address] [place] [address] Nurse Practitioner Family Medicine 12/10/23 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 Machine Operator Relationship Specialty Start Date End Date Hung Espinoza MD [address] [place] [address] PCP - General Family Medicine 12/10/23 Lenore Abad NP [address] [place] [address] Nurse Practitioner Family Medicine 12/10/23 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 Machine Operator Relationship Specialty Start Date End Date Hung Espinoza MD [address] [place] [address] PCP - General Family Medicine 12/10/23 Lenore Abad NP [address] [place] [address] Nurse Practitioner Family Medicine 12/10/23 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 Machine Operator Relationship Specialty Start Date End Date Hung Espinoza MD [address] [place] [address] PCP - General Family Medicine 12/10/23 Lenore Abad NP [address] [place] [address] Nurse Practitioner Family Medicine 12/10/23 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 Machine Operator Relationship Specialty Start Date End Date Hung Espinoza MD [address] [place] [address] PCP - General Family Medicine 12/10/23 Lenore Abad NP [address] [place] [address] Nurse Practitioner Family Medicine 12/10/23 Gideon Rae DO [address] [place], [place] [id number] Referring Physician Neurology 08/16/24 Yasmeen Lewis NP [address] [place], [place] Nurse Practitioner Neurology 08/16/24 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 Machine Operator Relationship Specialty Start Date End Date Hung Espinoza MD [address] [place] [address] PCP - General Family Medicine 12/10/23 Lenore Abad NP [address] [place] [address] Nurse Practitioner Family Medicine 12/10/23 Gideon Rae DO [address] [place] [address] Referring Physician Neurology 08/16/24 Yasmeen Lewis NP [address] [place], [place] Nurse Practitioner Neurology 08/16/24 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 Machine Operator Relationship Specialty Start Date End Date Hung Espinoza MD [address] [place] [address] PCP - General Family Medicine 12/10/23 Lenore Abad, JOHNSON [address] [place] [address] PCP - [facility] 08/03/24 Lenore Abad NP [address] [place] [address] Nurse Practitioner Family Medicine 12/10/23 Gideon Rae DO [address] [place] [address] Referring Physician Neurology 08/16/24 Yasmeen Lewis NP [address] [place], [place] Nurse Practitioner Neurology 08/16/24 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 Machine Operator Relationship Specialty Start Date End Date Hung Espinoza MD [address] [place] [address] PCP - General Family Medicine 12/10/23 Lenore Abad NP [address] [place] [address] PCP - [facility] 08/03/24 Lenore Abad NP [address] [place] [address] Nurse Practitioner Family Medicine 12/10/23 Gideon Rae DO [address] [place] [address] Referring Physician Neurology 08/16/24 Yasmeen Lewis, JOHNSON [address] [place] Nurse Practitioner Neurology 08/16/24 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 Machine Operator Relationship Specialty Start Date End Date Lenore Abad, BACK UP 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-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 [address] [place] [address] PCP - General Nurse Practitioner 06/09/19 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 Machine Operator Relationship Specialty Start Date End Date Hung Espinoza MD [address] [place] [id number] PCP - General Family Medicine 12/10/23 Lenore Abad NP [address] [place] [address] PCP - [facility] 08/03/24 Lenore Abad NP [address] [place] [address] Nurse Practitioner Family Medicine 12/10/23 Gideon Rae DO [address] [place] [address] Referring Physician Neurology 08/16/24 Yasmeen Lewis, JOHNSON [address] [place] Nurse Practitioner Neurology 08/16/24 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 Machine Operator Relationship Specialty Start Date End Date Hung Espinoza MD [address] [place] [phone] PCP - General Family Medicine 12/10/23 Lenore Abad, JOHNSON [address] [place] [address] PCP - [facility] 08/03/24 Lenore Abad NP [address] [place] [address] Nurse Practitioner Family Medicine 12/10/23 Gideon Rae DO [address] [place] [address] Referring Physician Neurology 08/16/24 Yasmeen Lewis NP [address] [place], [place] Nurse Practitioner Neurology 08/16/24 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 Machine Operator Relationship Specialty Start Date End Date Hung Espinoza MD [address] [place] [phone] PCP - General Family [facility] 12/10/23 Lenore Abad NP [address] [place] [address] PCP - [facility] 08/03/24 Lenore Abad, JOHNSON [address] [place] [address] Nurse Practitioner Family Medicine 12/10/23 Gideon Rae DO [address], [place] [id number] Referring Physician Neurology 08/16/24 Yasmeen Lewis, JOHNSON [address] [facility] [place] Nurse Practitioner Neurology 08/16/24 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 Machine Operator Relationship Specialty Start Date End Date Lenore Abad, BACK UP 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-SUPERVISOR EVAPORATOR PCP - General Nurse Practitioner 06/09/19 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 Machine Operator Relationship Specialty Start Date End Date Hung Espinoza MD [address] [place] [phone] PCP - General Family Medicine 12/10/23 Lenore Abad, JOHNSON [address] [place] [phone] PCP - [facility] 08/03/24 Lenore Abad NP [address] [place] [place] [address] Nurse Practitioner Family Medicine 12/10/23 Gideon Rae DO [address] [place] [address] Referring Physician Neurology 08/16/24 Yasmeen Lewis, JOHNSON [address] [place] Nurse Practitioner Neurology 08/16/24 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 Machine Operator Relationship Specialty Start Date End Date Hung Espinoza MD [address] [place] [address] PCP - General Family Medicine 12/10/23 Lenore Abad, JOHNSON [address] [place] [address] PCP - [facility] 08/03/24 Lenore Abad, JOHNSON [address] [place] [address] Nurse Practitioner Family [facility] 12/10/23 Gideon Rae DO [address] [place] [address] Referring Physician Neurology 08/16/24 Yasmeen Lewis NP [address] [place], [place] Nurse Practitioner Neurology 08/16/24 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 Machine Operator Relationship Specialty Start Date End Date Hung Espinoza MD [address] [place] [phone] PCP - General Family Medicine 12/10/23 Lenore Abad NP [address] [place] [address] PCP - [facility] 08/03/24 Lenore Abad NP [address] [place] [address] Nurse Practitioner Family Medicine 12/10/23 Gideon Rae DO [address] [place] [address] Referring Physician Neurology 08/16/24 Yasmeen Lewis NP [address] [place] [address] Nurse Practitioner Neurology 08/16/24 Goals (unrecognized section and content) Goals may be documented in a n alternate sectionNot on filedocumented as of this encounterNot on filedocumented as of this encounter (unrecognized sect ion and content) No Status Records FoundNo Status Records FoundNo Status Records Found INFORMATION SOURCE (unrecogn ized section and content) DATE CREATED AUTHOR 11/18/2022 [facility] DATE CREATED AUTHOR AUTHOR'S ORGANIZ ATION 12/15/2022 [facility] DATE CREATED AUTHOR AUTHOR'S ORGANIZ ATION 09/28/2024 [facility] EPIC Reason for Visit (unrecogniz ed section and content) Reason Onset Date Comments Med Refill 05/16/2024 Reason Comments Diabetes Reason Onset Date Comments Med Refill 04/06/2024 Reason Onset Date Comments Med Refill 04/25/2024 Reason Onset Date Comments Med Refill 08/01/2024 Reason Comments Tremors Specialty Diagnoses / Procedures Referred By Contac t Referred To Contact Neurology Diagnoses Parkinson's disease without dyskinesia, without mention of fluctuations (CMS/HCC) Type 2 diabetes mellitus with diabetic polyneuropathy, with long-term current use of insulin (CMS/[facility]) Weakness of both lower extremities Procedures [place] OFFICE/OUTPATIENT NEW HIGH MDM Lenore Abad NP [address] [place] [place] [address] Phone: tel: fax: Ilia Rodriguez DO [address] [place] [address] Phone: tel: fax: Referral ID Status Reason Start Date Expiration Date V isits Requested Visits Authorized [id number] Closed Consult and Treat 06/27/2024 12/24/2024 1 1 Reason Comments Diabetes Reason Onset Date Comments neuro referrral 09/28/2024 Reason Onset Date Comments Med Refill 02/07/2025 FOR RECORDS PERTAINING TO PATIENTS WHO ARE [...] BE BASED ON THE PRIMARY CLINICAL RECORDS. [facility] provides no warranty or guarantee of the accuracy or completeness of information in this document.
[2025-04-28 11:06] LABS: Hematocrit 40.5 % (42.0-54.0); Hemoglobin 14.0 g/dL (14.0-18.0); Immature Granulocytes Abs Auto 0.04 10^3/uL (0.00-0.03); Immature Granulocytes Pct Auto 0.3 % (0.0-0.5); Lymphocytes Absolute Auto 2.5 10^3/uL (1.2-3.8); Mean Corpuscular HGB Conc 34.6 g/dL (29.9-35.2); Mean Corpuscular Hemoglobin 30.6 pg (25.9-34.0); Mean Corpuscular Volume 88.4 fL (80.0-94.0); Platelet Count 244 10^3/uL (150-450); Red Blood Count 4.58 10^6/uL (4.70-6.10); White Blood Count 12.2 10^3/uL (4.0-11.0)
[2025-04-28 11:25] LABS: Glucose Urine UA NEGATIVE (NEGATIVE)
[2025-04-28 11:35] LABS: Alanine Aminotransferase 30 U/L (16-63); Albumin Globulin Ratio 0.9; Albumin Level 3.6 g/dL (3.4-5.0); Alkaline Phosphatase 135 U/L (46-116); Anion Gap 14.1; Aspartate Amino Transferase 15 U/L (15-37); Blood Urea Nitrogen 11.0 mg/dL (7.0-18.0); Calcium 8.9 mg/dL (8.5-10.1); Carbon Dioxide 24.4 mmol/L (21.0-32.0); Chloride 104 mmol/L (98-107); Cholesterol 99 mg/dL (<=200); Estimated GFR (African America >60 (>=60 mL/min/1.73m^2); Estimated GFR (Non-African Ame >60 (>=60 mL/min/1.73m^2); Globulin 4.0 g/dL; Glucose 143 mg/dL (74-106); HDL Cholesterol 39 mg/dL (40-60); Potassium 4.5 mmol/L (3.5-5.1); Sodium 138 mmol/L (136-145); Total Protein 7.6 g/dL (6.4-8.2); Triglycerides 88 mg/dL (<=150); VLDL CHOLESTEROL 17.6 mg/dL
[2025-04-28 12:02] LABS: Cast Seen? NONE SEEN #/LPF (NONE SEEN); Crystals Seen? None Seen #/HPF (None Seen)
== END 2025-04-28 10:37 | disposition home or self-care (01) ==
LOC: LAB 10:36
PROVIDERS: PCP Nurse Practitioner; Visit Provider Nurse Practitioner
DX: E11.42 Type 2 diabetes mellitus with diabetic polyneuropathy (principal); Z79.4 Long term (current) use of insulin; E78.2 Mixed hyperlipidemia; I10 Essential (primary) hypertension; E11.40 Type 2 diabetes mellitus with diabetic neuropathy, unspecified; F32.0 Major depressive disorder, single episode, mild; Z12.5 Encounter for screening for malignant neoplasm of prostate
CPT/HCPCS: 36415; 80053; 80061; 81001; 82043; 82570; 85025; G0103